=== PATIENT | male | born 2000 | race Caucasian/White ===

== ENCOUNTER 2023-11-26 15:58 | Emergency (ER) | payer MEDICAID, SELFPAY ==
[2023-11-26 16:01] VITALS: BP 159/76; PULSE 76; TEMP 36.6; O2SAT 99; BMI 29.0
--- NOTE | 2023-11-26 16:25 | ED_ITS ---
HPI - Dental/Oral General Chief complaint: Dental/Oral Stated complaint: toothache Time Seen by Provider: 11/26/23 16:18 Source: patient Mode of arrival: walk-in Limitations: no limitations History of Present Illness HPI Narrative: The patient is coming to the ER with 3 to 4 days history of dental pain, he does have a history of multiple dental problems and he was supposed to get extraction but he mentioned that his grandfather recently and he could not go to the dentist yet, the patient denies any other complaints Related Data Previous Rx's ?Medication ?Instructions ?Recorded amoxicillin 875 mg-potassium 1 tab PO Q12H #14 tabs 11/26/23 clavulanate 125 mg tablet ibuprofen 600 mg tablet 600 mg PO TID PRN pain #20 tabs 11/26/23 Allergies Allergy/AdvReac Type Severity Reaction Status Date / Time No Known Drug Allergies Allergy Verified 11/26/23 16:05 Review of Systems ROS Status of ROS 10 or more systems reviewed and unremark able except as noted in history and below Exam Narrative Exam Narrative: Nurses notes and vital signs reviewed and patient is not hypoxic. Dental evaluation showed that the patient have multiple decayed teeth with the left upper tooth #12 is totally decayed with the gum inflamed. Multiple dental caries noted on examination with a bad dental hygiene General: Well-appearing and in no apparent distress. Skin: Warm, dry, no pallor noted. No rash. Head: Normocephalic, atraumatic. Neck: Supple, non-tender. Eye: Pupils are equal, round and EOMI. No scleral icterus. Ears, Nose, Mouth, and Throat: TM are clear, no nasal mucosal hypertrophy. Oral mucosa is moist, no posterior oropharynx erythema, uvula is mid-line Cardiovascular: Regular Rate and Rhythm without murmur, gallop or rub. Respiratory: No accessory muscle use or respiratory distress. Lungs are clear to auscultation, no wheezing, rales or rhonchi Chest Wall: no tenderness Back: No midline thoracic or lumbar vertebral tenderness. No CVA tenderness Musculoskeletal: normal ROM, no calf or popliteal tenderness, no lower extremity edema/swelling GI: Abdomen is soft, non-distended. Normal bowel sounds. No masses appreciated. No tenderness to palpation. No rebound, guarding, or rigidity noted. Neurological: A&O x4. No cranial nerve dysfunction observed. No truncal ataxia. Moves all extremities. Sensation intact. Psychiatric: Cooperative and interactive. Normal mood and affect. Constitutional Vital Signs, click to edit/add: Last Vital Signs Temp 97.9 F 11/26/23 16:01 Pulse 76 11/26/23 16:01 Resp 20 11/26/23 16:01 BP 159/76 H 11/26/23 16:01 Pulse Ox 99 11/26/23 16:01 O2 Del Method Room Air 11/26/23 16:01 Course Vital Signs Vital signs: Vital Signs Temperature 97.9 F 11/26/23 16:01 Pulse Rate 76 11/26/23 16:01 Respiratory Rate 20 11/26/23 16:01 Blood Pressure 159/76 H 11/26/23 16:01 Pulse Oximetry 99 11/26/23 16:01 Oxygen Delivery Method Room Air 11/26/23 16:01 Temperature 97.9 F 11/26/23 16:01 Pulse Rate 76 11/26/23 16:01 Respiratory Rate 20 11/26/23 16:01 Blood Pressure 159/76 H 11/26/23 16:01 Pulse Oximetry 99 11/26/23 16:01 Oxygen Delivery Method Room Air 11/26/23 16:01 MDM - Dental/Oral MDM Narrative Medical decision making narrative: The patient was referred to the dentist as outpatient He was started on Augmentin ibuprofen for pain management and antibiotic for infection control The patient is to follow up with primary care physician in next 2-3 days or to return to the emergency department should any of the signs or symptoms worsen or new symptoms develop. The patient agrees with the following Diagnosis and Treatment plan and the patient will be discharged home. Discharge Plan Discharge Stand Alone Forms: Portal Instructions Chief Complaint: Dental/Oral Clinical Impression: Dental caries, Toothache Patient Disposition: Home, Self-Care Time of Disposition Decision: 16:24 Condition: Good Prescriptions / Home Meds: New amoxicillin-pot clavulanate 875-125 mg tablet 1 tab PO Q12H Qty: 14 0RF ibuprofen 600 mg tablet 600 mg PO TID PRN (Reason: pain) Qty: 20 0RF Print Language: Vietnamese Instructions: Toothache (ED) Referrals: Physician,Non-Staff, MD [Primary Care Provider] - 1 week
[2023-11-26] MEDS: BENZOCAINE 30 ML, lidocaine HCL 15 ML MM (16:39)
== END 2023-11-26 16:42 | disposition home or self-care (01) ==
PROVIDERS: Emergency Provider Emergency Medicine
DX: K02.9 Dental caries, unspecified (principal); K08.89 Other specified disorders of teeth and supporting structures
CPT/HCPCS: 99283

== ENCOUNTER 2024-08-06 21:07 | Emergency (ER) | payer SELFPAY ==
[2024-08-06 21:10] VITALS: BP 151/99; PULSE 116; TEMP 38.1; O2SAT 97; BMI 29.0
[2024-08-06 21:33] LABS: Influenza Virus A Antigen Negative; Influenza Virus B Antigen Negative; Internal Control Within Normal Limits; SARS-CoV-2 Ag NEGATIVE (NEGATIVE)
--- NOTE | 2024-08-06 22:18 | PC.NURSE ---
Pt complains of fever, cough, sore throat and and a headache that started yesterday. pt states that headache is in the back of her head. Pt states he has a productive cough but unsure the color of the phlegm. Lung sounds are clear but dim. pt states that he did take Tylenol for his temp about 2000
--- NOTE | 2024-08-06 22:19 | XR_ITS ---
The [address] [address] Patient Name: POLINA HAGAN MRN: [id number] date: 2000 Sex: M Assigned Patient Location: ER Current Patient Location: ER Accession/Order Number: [id number] Exam Date: 08/06/2024 22:30 Report Date: 08/06/2024 23:18 At the request of: ANTOINE DEJESUS Procedure: XR chest 1V EXAM: XR chest 1V HISTORY: Fever, cough COMPARISON: Chest radiograph 01/15/2021 TECHNIQUE: Frontal radiograph of the chest FINDINGS: Lungs symmetrically and adequately inflated. No focal consolidation or evidence of pulmonary edema. No pneumothorax or significant pleural effusion. Normal cardiomediastinal contours. No acute osseous abnormality. XR/XR chest 1V IMPRESSION: No acute cardiopulmonary findings. Electronically authenticated by: ELEAZAR LINN Date: 08/06/2024 23:18
--- NOTE | 2024-08-06 22:19 | ED_ITS ---
HPI HPI - General Adult General Stated complaint: FEVER COUGH Time Seen by Provider: 08/06/24 22:19 Source: patient Mode of arrival: walk-in History of Present Illness HPI narrative: 24-year-old male presents to the emergency department for fever and a cough which began yesterday. He has been coughing up some phlegm but he swallows it and does not look at it. He had Tylenol about 2-1/2 hours ago. He vapes but does not smoke and has no history of asthma. Related Data Allergies Allergy/AdvReac Type Severity Reaction Status Date / Time No Known Drug Allergies Allergy Verified 08/06/24 21:12 Opioid HPI Opioid Management Most Recent Opioid Data: No Data to Display Review of Systems ROS Narrative A ten point review of systems is negative except as noted above. PFSH PFSH Social History Little interest or pleasure in doing things: not at all Feeling down, depressed, or hopeless: not at all Exam Narrative Exam Narrative: Nurses note and vital signs reviewed and patient is not hypoxic. General: The patient appears well and in no apparent distress. Patient is resting comfortably on cart. He is speaking in full sentences. Skin: Warm, dry, no pallor noted. There is no rash noted. Head: Normocephalic, atraumatic Eye: Normal conjunctiva, no drainage Ears, Nose, Mouth, and Throat: oral mucosa is moist. Nares patent. Cardiovascular: Regular Rate and Rhythm not tachycardic Respiratory: Patient is in no distress, no accessory muscle use, lungs are clear to auscultation, no wheezing, rales or rhonchi Back: non-tender GI: Soft and nontender Musculoskeletal: The patient has no evidence of calf tenderness, no pitting edema, symmetrical pulses noted bilaterally Neurological: A&O, normal speech Psychiatric: Cooperative Constitutional Vital Signs, click to edit/add: Last Vital Signs Temp 100.5 F H 08/06/24 21:10 Pulse 116 H 08/06/24 21:10 Resp 18 08/06/24 21:10 BP 151/99 H 08/06/24 21:10 Pulse Ox 97 08/06/24 21:10 O2 Del Method Room Air 08/06/24 21:10 Course Vital Signs Vital signs: Vital Signs Temperature 100.5 F H 08/06/24 21:10 Pulse Rate 116 H 08/06/24 21:10 Respiratory Rate 18 08/06/24 21:10 Blood Pressure 151/99 H 08/06/24 21:10 Pulse Oximetry 97 08/06/24 21:10 Oxygen Delivery Method Room Air 08/06/24 21:10 Temperature 100.5 F H 08/06/24 21:10 Pulse Rate 116 H 08/06/24 21:10 Respiratory Rate 18 08/06/24 21:10 Blood Pressure 151/99 H 08/06/24 21:10 Pulse Oximetry 97 08/06/24 21:10 Oxygen Delivery Method Room Air 08/06/24 21:10 Medical Decision Making MDM Narrative Medical decision making narrative: COVID and influenza test are negative and chest x-ray shows no infiltrate. My clinical impression is that he has a viral URI. Treatment diagnosis and follow- up were discussed with the patient. Antibiotic not indicated Lab Data Lab results reviewed: Yes I reviewed the patient's lab results Labs: Lab Results 08/06/24 Range/Units 21:11 Influenza Type A Ag Negative Influenza Type B Ag Negative SARS-CoV-2 Ag (CV2AG) Negative (NEGATIVE) Imaging Data Chest x-ray: Radiologist's impression: ITS Impressions Chest X-Ray 08/06/24 22:19 IMPRESSION: No acute cardiopulmonary findings. Electronically authenticated by: ELEAZAR LINN Date: 08/06/2024 23:18 Discharge Plan Discharge Clinical Impression: Viral URI Patient Disposition: Home, Self-Care Time of Disposition Decision: 23:24 Condition: Good Mode of Transportation: Private Vehicle Print Language: Tongan Instructions: Upper Respiratory Infection (ED) Referrals: Physician,Non-Staff, MD [Primary Care Provider] - 1 week
[2024-08-06] MEDS: IBUPROFEN 400 MG TABLET 800 MG PO (22:41)
[2024-08-06 23:33] VITALS: BP 126/90; PULSE 79; TEMP 37.1; O2SAT 98
== END 2024-08-06 23:35 | disposition home or self-care (01) ==
PROVIDERS: Emergency Provider Emergency Medicine
DX: J06.9 Acute upper respiratory infection, unspecified (principal); R50.9 Fever, unspecified; F17.290 Nicotine dependence, other tobacco product, uncomplicated
CPT/HCPCS: 71045; 87804; 87811; 99285

== ENCOUNTER 2024-08-08 02:09 | Emergency (ER) | payer SELFPAY ==
[2024-08-08 02:12] VITALS: BP 159/88; PULSE 87; TEMP 37.7; O2SAT 99; BMI 29.0
--- NOTE | 2024-08-08 02:15 | PC.NURSE ---
Pt states that he was here last night, and is frustrated that his fever continues. He is taking tylenol at home.
--- OUTSIDE RECORDS SUMMARY | 2024-08-08 02:17 | XMS_ITS | CCD ---
Author Organization [facility] Care Team Providers Care Outside Plant Cable Engineer Name Role Phone ELIZABETH JAUREGUI Unavailable Unavailable ERI BARTON Unavailable Unavailable ERI BARTON Unavailable Unavailable ERI BARTON Unavailable Unavailable ELIZABETH JAUREGUI Primary Care Physician [phone] TAMMY Beth Attending UnavailELIZABETH Rodriguez Consulting Unavailable ELIZABETH JAUREGUI Primary Care Unavailable ELIZABETH JAUREGUI Consulting Unavailable ELIZABETH JAUREGUI Primary Care Unavailable Robbie Shultz Attending Unavailable Joana Mendes Unavailable MARY Gomez Attending Provider Brigette Vizcaino Unavailable Jakob Velasquez Attending Unavailable Jakob Velasquez Attending Unavailable JULIUS Vizcaino Attending Provider [phone] Brigette Vizcaino Admitting Unavailable Brigette Vizcaino Attending Unavailable Tejal Gomez Attending Unavailable NO FAMILY, PHYSICIAN Primary Care Unavailable Tejal Gomez Admitting Unavailable Allergies Allergy Classification Reported Allergen(s) Allergy Type Date of Onset Reaction(s) Facility (1 source) No Known Medication Allergies; Translations: [No Known Medication Allergies] Propensity to adverse reactions (disorder) [facility] Repository Medications Current Medications Medication Drug Class(es) Dates Sig (Normalized) Sig (Original) [id number] 200 actuat albuterol 0.09 mg/actuat metered dose inhaler (1 source) beta2-Adrenergic Agonist Start: 3 take 2 puff(s) by inhalation every four to six hours as needed Albuterol Sulfate HFA 108 (90 Base) MCG/ACT 2 puffs as needed Inhalation every 4-6 hours for 14 days December, Active cephalexin 500 mg oral capsule (1 source) Cephalosporin Antibacterial Start: 2 End: 2 take 1 capsule by mouth every twelve hours Keflex 500 mg Cap 500 mg = 1 cap(s), Oral, q12hr, X 5 day(s), # 10 cap(s), Refills(s) 0, Pharmacy: [facility]/pharmacy #[id number], 185.3, cm, 11/12/21 15:39:00 EDT, Height/Length Dosing, 119.6, kg, 11/12/21 15:39:00 EDT, Weight Dosing Start Date: 11/19/21 Stop Date: 11/24/21 Status: Ordered dextromethorphan hydrobromide 1.5 mg/ml / pyrilamine maleate 1.5 mg/ml oral solution (1 source) Uncompetitive C-iqvyhx-K-asparta te Receptor Antagonist, Sigma-1 Agonist Start: 3 take 10 mL by mouth every eight hours [place] DM 7.5-7.5 MG/5ML 10 mL Orally every 8 hours for 5 days December, Active hyoscyamine sulfate 0.125 mg oral tablet (2 sources) Start: 2 take 1 tablet by mouth four times daily as needed for muscle spasms Levsin 0.125 mg SL Tab 0.125 mg = 1 tab(s), Oral, QID, PRN spasm, # 20 tab(s), Refills(s) 0, Pharmacy: [facility]/pharmacy #[id number], 185.3, cm, 11/12/21 15:39:00 EDT, Height/Length Dosing, 119.6, kg, 11/12/21 15:39:00 EDT, Weight Dosing Start Date: 11/19/21 Status: Ordered methylPREDNISolone 4 mg oral tablet (1 source) Corticosteroid Start: 3 methylPREDNISolone 4 MG as directed Orally for daily dose take half with breakfast, half with dinner for 6 days December, Active Problems Active Problems Problem Classification Problem Date Documented Date Episodic/Chronic Abdominal pain (2 sources) Flank pain 09-29-2021 Episodic Chronic obstructive pulmonary disease and bronchiectasis (2 sources) Bronchitis, not specified as acute or chronic; Translations: [BRONCHITIS NOT SPEC ACUTE/CHRON] Onset: 04-14-2018 Episodic Genitourinary symptoms and ill-defined conditions (4 sources) Post-micturition incontinence ; Translations: [Urge incontinence of urine] 09-29-2021 Chronic Genitourinary symptoms and ill-defined conditions (7 sources) Delay when starting to pass urine; Translations: [Dysuria] Onset: 08-19-2023 09-29-2021 Episodic Other diseases of bladder and urethra (2 sources) Urethral stricture 10-26-2021 Episodic Other lower respiratory disease (3 sources) Cough; Translations: [COUGH] Onset: 04-12-2018 Episodic Substance-related disorders (2 sources) Smoker 11-12-2021 Chronic Comment on above: Added secondary to d ocumentation in Social History. Unclassified (1 source) Pain in right ankle and joints of right foot; Translations: [Pain in right ankle and joints of right foot] Onset: 02-24-2023 Past or Other Problems Problem Classification Problem Date Documented Da te Episodic/Chronic Unclassified (1 source) Exposure to 2019 novel coronavirus; Translations: [Contact with and (suspected) exposure to COVID19] Results Test Name Value Interpretation Reference Range Facility Consultation Noteon 08-22-19 24 Consultation Note [id number] [facility] Chlamydia/GC/Trich NAAon Chlamydia Trachomotis, LUCERO Negative Normal Negative [facility] Comment on above: Order Comment: Reaso n for Exam Dysuria SOURCE OF SPECIMEN: URINE APTIMA Performed By: #### G CCHLAMTRI #### [facility] , Neisseria Gonorrhoeae, LUCERO Negative Normal Negative [facility] Comment on above: Order Comment: Reaso n for Exam Dysuria SOURCE OF SPECIMEN: URINE APTIMA Performed By: #### G CCHLAMTRI #### [facility] , Trichomonas LUCERO Negative Normal Negative [facility] Comment on above: Order Comment: Reaso n for Exam Dysuria SOURCE OF SPECIMEN: URINE APTIMA Result Comment: Perf ormed at: =G - [facility] [address] [place] [id number] Clerical Dentist Assistant: Karina Bradford MD, Phone: [phone] PERFORMED BY: [facility] [address] [place] [id number] PATHOLOGIST SENIOR FINANCE MANAGER KYRA FERRARO M.D. Performed By: #### G CCHLAMTRI #### [facility] , Chlamydia/GC/Tric h LUCERO Negative Negative [employer] Other Urinalysis - AUTOMATEDon Appearance (U) clear [employer] Other Bilirubin Ql (U) Negative [facility] Other Color (U) dark yellow [employer] Other Glucose Ql (U) Negative [employer] Other Hemoglobin Ql (U) trace-intact [employer] Other Ketones Ql (U) Negative [employer] Other Leukocyte esterase Test strip Ql (U) Negative [employer] Other Nitrite Ql (U) Negative [employer] Other pH (U) 5.5 [pH] [employer] Other Protein Ql (U) Negative [employer] Other Specific gravity (U) [Rel density] >=1.030 [employer] Other Urobilinogen (U) [Mass/Vol] 0.2 mg/dL [employer] Other Urinalysis - AUTOMATED [employer] Other Ambulatory Visit Summaryon 0 05-04-2023 Ambulatory Visit Summary POLINA HAGAN :2000 Visit Date:05/04/2023 Ambulatory Visit Instructions Your Diagnosis Acute URI Vaping-related disorder BMI 31.0-31.9,adult Class 1 obesity due to excess calories in adult Your Care Team Attending Physician - Jakob Velasquez MD Primary Care Physician - ELIZABETH JAUREGUI MD This Is Your Medications List hyoscyamine (Levsin 0.125 mg SL Tab) Procedures Performed Cystoscopy (11/19/2021), Urethrotomy (11/19/2021), Cystourethroscopy with dilation of urethral stricture (10/26/2021). Discharge Vitals Temperature (Temporal Artery) 37.3 ?C Heart Rate (Peripheral) 80 Respiratory Rate 14 Blood Pressure 160/94 Height 185.3 cm Height 73 in Weight 108.6 kg Weight 238.92 lb BMI 31.63 What to do next Scheduled Follow-Up Appointments Tuesday 4:40 PM EST With: Jakob Velasquez MD Where: [facility] Medicine Office/Clini c Noteon 05-04-2023 Family Medicine Office/Clinic Note HPI Staff Polina is a 22 year old male presenting for sick visit Acute: cough and congestion _Respiratory C/O: Duration: 4 days Body aches: no Chest congestion: yes Chills: no Cough: yes colored phlegm sometimes Ear complaints: no Eye itching/watering: no Fever: no Headache: yes yesterday but it's gone Nasal congestion: yes Nasal discharge: yes colored sometimes Poor appetite: no Reduced activity: no Sinus pain/pressure: no Sneezing: no Sputum production: yes Wheezing: no Ill contacts: no Remedies tried: tylenol _ _ flu: refused questions/concerns: none History of Present Illness See staff HPI Review of Systems PHQ Score Initial Depression Screen Score: 0 Physical Exam Vitals & Measurements T: 37.3 ?C(Temporal Artery) HR: 80(Peripheral) RR: 14 BP: 160/94 SpO2: 100% HT: 73 in HT: 185.3 cm WT: 108.6 kg WT: 238.92 lb BMI: 31.63 General: alert, no acute distress ENMT: oral mucosa moist, Cardiovascular: regular rate and rhythm, normal peripheral perfusion Respiratory: Lungs CTA, respirations non labored Extremities: no deformity, no trauma Neurological: oriented x 4, LOC appropriate for age, CN II-XII intact, motor strength equal & normal bilaterally, speech normal Abdomen: Soft, Nontender, Non-distended, + BS Assessment/Plan 1. Acute URI (J06.9: Acute upper respiratory infection, unspecified) - Recommend OTC meds - Pocket script given - Precautions discussed in detail. When to return discussed along with when to go to the ER. Pt verbalized understanding. 2. Vaping-related disorder (U07.0: Vaping-related disorder) - Please stop Vaping Ordered: Body Mass Index (BMI) documented 3008F Current tobacco smoker 1034F Depression Screening Negative 3352F Influenza immunization status assessed 1030F Most recent diastolic blood pressure >=90 mm Hg 3080F Most recent systolic blood pressure >= 140 mm Hg 3077F 3. BMI 31.0-31.9,adult (Z68.31: Body mass index [BMI] 31.0-31.9, adult) - BMI education given Ordered: Body Mass Index (BMI) documented 3008F Current tobacco smoker 1034F Depression Screening Negative 3352F Influenza immunization status assessed 1030F Most recent diastolic blood pressure >=90 mm Hg 3080F Most recent systolic blood pressure >= 140 mm Hg 3077F 4. Class 1 obesity due to excess calories in adult (E66.09: Other obesity due to excess calories) - As above. Ordered: Body Mass Index (BMI) documented 3008F Current tobacco smoker 1034F Depression Screening Negative 3352F Influenza immunization status assessed 1030F Most recent diastolic blood pressure >=90 mm Hg 3080F Most recent systolic blood pressure >= 140 mm Hg 3077F Follow-up No qualifying data available Problem List/Past Medical History Ongoing Acute URI Dysuria Flank pain Post-void dribbling Smoker Urethral stricture Urge incontinence Urinary hesitancy Historical No qualifying data Procedure/Surgical History Cystoscopy (11/19/2021), Urethrotomy (11/19/2021), Cystourethroscopy with dilation of urethral stricture (10/26/2021). Medications Levsin 0.125 mg SL Tab, 0.125 mg= 1 tab(s), Oral, QID, PRN Allergies No Known Medication Allergies Social History Alcohol - Low Risk, 11/12/2021 Current, 1-2 times per year, 11/12/2021 Substance Abuse - Medium Risk, 11/12/2021 Current, Marijuana, Daily, 11/12/2021 Tobacco - Medium Risk, 11/12/2021 Current vaping or e-cigarette use Smokeless Tobacco Use:. Vaping, 05/04/2023 Family History Family history is negative Immunizations Vaccine Date Status meningococcal conjugate vaccine 05/02/2018 Recorded diphtheria/pertussis, acel/tetanus adult 04/03/2013 Recorded meningococcal conjugate vaccine 04/03/2013 Recorded poliovirus vaccine, inactivated 01/28/2006 Recorded measles/mumps/rubella virus vaccine 01/28/2006 Recorded diphtheria/pertussis, acel/tetanus ped 01/28/2006 Recorded poliovirus vaccine, inactivated 11/09/2001 Recorded measles/mumps/rubella virus vaccine 11/09/2001 Recorded DTaP, unspecified formulation 11/09/2001 Recorded poliovirus vaccine, inactivated 01/24/2001 Recorded pneumococcal 23-valent vaccine 01/24/2001 Recorded DTaP, unspecified formulation 01/24/2001 Recorded poliovirus vaccine, inactivated 2000 Recorded hepatitis B pediatric vaccine 2000 Recorded DTaP, unspecified formulation 2000 Recorded hepatitis B pediatric vaccine [address] [facility] Comment on above: Result Comment: Elec tronically Signed By: Ron BRAY, Jakob Feliz\.br\Date and Time Signed: 05/04/23 17:14 EDT XR ankle RT min 3V*on 2022 XR ankle RT min 3V* [facility] [place] [address] [place] [address] XRay Report Signed Patient: Polina Hagan MR#: [id number] 4 : 2000 Acct:[id number] Age/Sex: 22 / M ADM Date: 02/24/23 Loc: XDUCLY Room: Type: [facility] Attending Dr: Tejal Gomez APRN Copies to: Tejal Gomez APRN Ordering Provider: Tejal Gomez APRN Date of Service: 02/24/23 XR/XR ankle RT min 3V*: Acute right ankle pain XR ankle RT min 3V* 02/24/2023 4:58 PM SIGNS AND SYMPTOMS: Acute right ankle pain PROTOCOL: Frontal, lateral, and oblique radiographs of the right ankle COMPARISON: 01/21/2020 FINDINGS: There is soft tissue swelling over the lateral malleolus. There is no evidence of acute displaced fracture. The ankle mortise is preserved. XR/XR ankle RT min 3V* IMPRESSION: No acute bony injury. Soft tissue swelling is noted over the lateral malleolus. Impression dictated by: Isaiah Craft M.D.02/24/2023 5:11 PM Dictation Location: [place] [address] Transcribed By: [facility] 02/24/23 171 Dictated By: Isaiah Craft II, MD 02/24/23 1709 Signed By: 02/24/23 171 [facility] .UA Microscp Aon 01-14-2022 UA Mucus Present Abnormal Absent [facility] Comment on above: Performed By: #### C [id number] ####[address] [address] UA RBC Quant 27 /HPF High 0-5 [facility] Comment on above: Performed By: #### C [id number] ####[address] [address] UA WBC Quant 2 /HPF Normal 0-5 [facility] Comment on above: Performed By: #### C [id number] ####[address] [address] .eGFRon 01-14-2022 GFR/1.73 sq M.predicted MDRD (S/P/Bld) [Vol rate/Area] mL/min/{1.73_m2} Normal >=60 [facility] Comment on above: Result Comment: [facility] Laboratories have implemented the eGFR calculation approach that does not have a coefficient for race and that conforms to the NKF-ASN Task Force Recommendations. Stages of Chronic Kidney Disease GFR Stage 3a Mild to moderate loss of kidney function 59 to 45 Stage 3b Moderate to severe loss of kidney function 44 to 33 Stage 4 Severe loss of kidney function 29 to 15 Stage 5 Kidney failure Less than 15 GFR calculated using the CKD-Epi Creatinine Equation (2020): eGFR = 142 X min(SCr/?, 1)? X max(SCr /?, 1)-1.200 X 0.9938Age X 1.012 [if female] Abbreviations/Units: eGFR (estimated glomerular filtration rate) = mL/min/1.73 m2 SCr (standardized serum creatinine) = mg/dL ? = 0.7 (females) or 0.9 (males) ? = -0.241 (females) or -0.302 (males) min = indicates the minimum of SCr/? or 1 max = indicates the maximum of SCr/? or 1 Age = years Performed By: #### E GFR ####[address] [address] Basic Metabolic Profileon Anion gap [Moles/Vol] 15 mmol/L Normal 7-17 [facility] Comment on above: Performed By: #### C [id number] ####[address] [address] Calcium [Mass/Vol] 9.3 mg/dL Normal 8.5-10.3 [facility] Comment on above: Performed By: #### C [id number] ####[address] [address] Chloride [Moles/Vol] 99 mmol/L Normal 98-110 [facility] Comment on above: Performed By: #### C [id number] ####[address] [address] CO2 [Moles/Vol] 26 mmol/L Normal 22-32 [facility] Comment on above: Performed By: #### C [id number] ####[address] [address] Creatinine [Mass/Vol] 1.06 mg/dL Normal 0.61-1.24 [facility] Comment on above: Performed By: #### C [id number] ####[address] [address] Glucose [Mass/Vol] 111 mg/dL High 70-99 [facility] Comment on above: Performed By: #### C [id number] ####[address] [address] Potassium [Moles/Vol] 3.9 mmol/L Normal 3.4-4.8 [facility] Comment on above: Performed By: #### C [id number] ####[address] [address] Sodium [Moles/Vol] 136 mmol/L Normal 133-142 [facility] Comment on above: Performed By: #### C [id number] ####[address] [address] Urea nitrogen [Mass/Vol] 16 mg/dL Normal 8-26 [facility] Comment on above: Performed By: #### C [id number] ####[address] [address] Urea nitrogen/Creatini ne [Mass ratio] 15.1 mg/mg Normal 10.0-20.0 [facility] Comment on above: Performed By: #### C [id number] ####[address] [address] CBC w/ Diffon 01-14-2022 Erythrocyte distribution width (RBC) [Ratio] 14.7 % Normal 11.6-14.8 [facility] Comment on above: Performed By: #### C BC ####[address] [address] Hematocrit (Bld) [Volume fraction] 46.7 % Normal 41.0-53.[address] [facility] Comment on above: Performed By: #### C BC ####[address] [address] Hemoglobin (Bld) [Mass/Vol] 15.7 g/dL Normal 13.5-17.5 [facility] Comment on above: Performed By: #### C BC ####[address] [address] MCH (RBC) [Entitic mass] 26.2 pg Low 27.0-35.0 [facility] Comment on above: Performed By: #### C BC ####[place] [id number] MCHC 33.5 % Normal 31.0-37.[address] [facility] Comment on above: Performed By: #### C BC ####[place] [id number] MCV (RBC) [Entitic vol] 78.2 fL Low 80.0-100.0 [facility] Comment on above: Performed By: #### C BC ####[place] [address] Platelet 267 x10*3/mcL Normal 150-350 [facility] Comment on above: Performed By: #### C BC ####[place] [id number] Platelet mean volume (Bld) [Entitic vol] 7.1 fL Normal 6.7-10.6 [facility] Comment on above: Performed By: #### C BC ####[place] [address] RBC 5.97 x10*6/mcL High 4.30-5.80 [facility] Comment on above: Performed By: #### C BC ####[place] [id number] WBC 12.3 x10*3/mcL High 4.5-11.0 [facility] Comment on above: Performed By: #### C BC ####[place] [address] CT Abd Pelvis w/o IV Cont St one Prot.on 01-14-2022 CT Abd Pelvis w/o IV Cont Stone Prot. CT abdomen and pelvis without contrast on 01/14/2022 Clinical History: Hematuria Comparison: CT abdomen and pelvis on 12/03/2021 Findings: Evaluation of the lower chest is unremarkable. Grossly unremarkable liver, spleen, pancreas and adrenals. No radiopaque cholelithiasis. No biliary ductal dilatation. Mild left-sided hydronephrosis and hydroureter secondary to a 4 mm stone at the left-sided ureterovesical junction. Grossly unremarkable visualized bowel loops. No free air or free fluid. Normal appendix. Prominent wall of the urinary bladder. Mild arthritic changes of the bilateral sacroiliac joints. Impression: 1. A 4 mm stone at the left-sided ureterovesical junction causing mild left-sided hydronephrosis and hydroureter. 2. Prominent wall of the urinary bladder could be related to underdistention or cystitis. Please correlate clinically. Radiation Dose Estimate: CTDI(mGy):0.420625 / / / kVp:120.606884 / mAs:0.401784 / / / DLP(mGy-cm):4.416684Hw dy Part: Abdomen CTDI(mGy):40.457271 / / / kVp:140.642053 / mAs:155.493216 / / / DLP(mGy-cm):1966.55993 9Body Part: Abdomen Final Dictated by: Shanda Borges MD Dictated DT/TM: 01.14.2022 9:11 am Signed by: Shanda Borges MD Signed (Electronic Signature): 01.14.2022 9:25 am (If Report Is Signed, Electronically Signed in Other Vendor System) Normal [facility] Diff Autoon 01-14-2022 Baso Absolute 0.0 x10*3/mcL Normal 0.0-0.2 [facility] Comment on above: Performed By: #### . Automated Diff ####[address] [address] Basophils/100 WBC (Bld) 0.3 % Normal 0.0-1.2 [facility] Comment on above: Performed By: #### . Automated Diff ####[address] [address] Eos Absolute 0.0 x10*3/mcL Normal 0.0-0.4 [facility] Comment on above: Performed By: #### . Automated Diff ####[address] [address] Eosinophils/100 WBC (Bld) 0.3 % Normal 0.0-6.1 [facility] Comment on above: Performed By: #### . Automated Diff ####[address] [address] Lymph Absolute 1.4 x10*3/mcL Normal 1.0-4.8 [facility] Comment on above: Performed By: #### . Automated Diff ####[address] [address] Lymphocytes/100 WBC (Bld) 11.5 % Low 27.2-40.8 [facility] Comment on above: Performed By: #### . Automated Diff ####[address] [address] Ashe Absolute 0.8 x10*3/mcL Normal 0.3-1.1 [facility] Comment on above: Performed By: #### . Automated Diff ####[address] [address] Monocytes/100 WBC (Bld) 6.4 % Normal 4.7-13.9 [facility] Comment on above: Performed By: #### . Automated Diff ####[address] [address] Neutro Absolute 10.0 x10*3/mcL High 1.8-7.7 [facility] Comment on above: Performed By: #### . Automated Diff ####[address] [address] Neutro Auto 81.5 % High 47.2-70.[address] [facility] Comment on above: Performed By: #### . Automated Diff ####[address] [address] ED Clinical Summaryon 2021 ED Clinical Summary [address] [id number] ED Clinical Summary Person Information Name: Polina Hagan Janine/[facility] Age: 21 Years : 2000 Sex: Male PCP: Elizabeth Jauregui MD Marital Status: Single Phone: Race: White Ethnicity: Not or Language: Danish Visit Reason: Flank pain; Flank pain Acuity: 3 Enc Type: Emergency Med Service: Emergency Medicine Arrival: 01/14/2022 08:25:15 Discharge: 01/14/2022 10:26:00 LOS: 000 02:01 Checkin: 01/14/2022 08:25:15 Checkout: 01/14/2022 10:26:00 Dispo Type: Home or Self Care Address: [address] [place] [id number] Provider Notes: Diagnosis: 1:Ureterolithiasis - Left Problems Active No Chronic Problems Smoking Status: Smoking Status Former smoker, quit more than 1 year ago Functional Status: Sensory Deficits: History of Falls: Mobility Assistance Prior to Admission: ADLs: Current Level of Assistance for Self-Care/Mobility: Cognitive Status: Allergies No Known Allergies Laboratory or Other Results This Visit (last charted value for your 01/14/2022 visit) Hematology 01/14/2022 8:34 AM WBC: 12.3 x10 RBC: 5.97 x10 Neutro Auto: 81.5 % -- Normal range between ( 47.2 and 70.8 ) Lymph Auto: 11.5 % -- Normal range between ( 27.2 and 40.8 ) Ashe Auto: 6.4 % -- Normal range between ( 4.7 and 13.9 ) Eos Auto: 0.3 % -- Normal range between ( 0.0 and 6.1 ) Basophil Auto: 0.3 % -- Normal range between ( 0.0 and 1.2 ) Baso Absolute: 0.0 x10 MCV: 78.2 fL -- Normal range between ( 80.0 and 100.0 ) MCHC: 33.5 % -- Normal range between ( 31.0 and 37.0 ) Lymph Absolute: 1.4 x10 Hct: 46.7 % -- Normal range between ( 41.0 and 53.0 ) Ashe Absolute: 0.8 x10 MCH: 26.2 pg -- Normal range between ( 27.0 and 35.0 ) Neutro Absolute: 10.0 x10 Hgb: 15.7 g/dL -- Normal range between ( 13.5 and 17.5 ) Mean Platelet Volume: 7.1 fL -- Normal range between ( 6.7 and 10.6 ) Platelet: 267 x10 Eos Absolute: 0.0 x10 RDW: 14.7 % -- Normal range between ( 11.6 and 14.8 ) Urinalysis 01/14/2022 8:40 AM UA Color: Light-Yellow UA Urobilinogen: Normal mg/dL UA Bili: Negative UA Ketones: Negative mg/dL UA Leukocyte Esterase: Negative UA Nitrite: Negative UA Glucose: Normal mg/dL UA Protein: 20 mg/dL UA Blood: 2+ UA Spec Grav: 1.020 -- Normal range between ( 1.003 and 1.035 ) UA pH: 5.5 UA Clarity: Clear UA Source: Clean Catch UA Mucus: Present /LPF UA WBC Quant: 2 /HPF -- Normal range between ( 0 and 5 ) UA RBC Quant: 27 /HPF -- Normal range between ( 0 and 5 ) Chemistry 01/14/2022 8:34 AM Creatinine Lvl: 1.06 mg/dL -- Normal range between ( 0.61 and 1.24 ) BUN: 16 mg/dL -- Normal range between ( 8 and 26 ) Glucose Lvl: 111 mg/dL -- Normal range between ( 70 and 99 ) Potassium Lvl: 3.9 mmol/L -- Normal range between ( 3.4 and 4.8 ) Sodium Lvl: 136 mmol/L -- Normal range between ( 133 and 142 ) Lipase Lvl: 27 IU/L -- Normal range between ( 22 and 51 ) Calcium Lvl: 9.3 mg/dL -- Normal range between ( 8.5 and 10.3 ) Chloride: 99 mmol/L -- Normal range between ( 98 and 110 ) CO2: 26 mmol/L -- Normal range between ( 22 and 32 ) Anion Gap: 15 -- Normal range between ( 7 and 17 ) Estimated GFR: >60 mL/min/1.73m? BUN Crea Ratio: 15.1 -- Normal range between ( 10.0 and 20.0 ) Computed Tomography 01/14/2022 9:[address] Abd Pelvis w/o IV Cont Stone Prot.: CT Abd Pelvis w/o IV Cont Stone Prot. Measurements: Height: Weight: 122.4 kg Blood Pressure: /79 mmHg BMI: Procedures No Procedures Documented Immunizations No Immunizations Documented This Visit Final Med List: New Medications [facility]/pharmacy #[id number], [address] [place], [place] [id number], [phone] ciprofloxacin (Cipro 500 mg oral tablet) 1 Tabs Oral (given by mouth) every 12 hours for 7 Days. Refills: 0. Last Dose: ___ ondansetron (Zofran ODT 4 mg oral tablet, disintegrating) 1 Tabs Oral (given by mouth) 3 times a day as needed nausea/vomiting. Refills: 0. Last Dose: ___ Printed Prescriptions hydrocodone-acetaminop hen (Eastman 5 mg-325 mg oral tablet) 1 Tabs Oral (given by mouth) every 6 hours as needed as needed for pain for 3 Days. Refills: 0. Last Dose: ___ Medications that have not changed Other Medications diclofenac (diclofenac sodium 75 mg oral delayed release tablet) 1 Tabs Oral (given by mouth) 2 times a day. Refills: 0. Last Dose: ___ diclofenac topical (diclofenac 1% topical gel) 1 Application Topical (on the skin) 4 times a day as needed pain. Refills: 0. Last Dose: ___ lidocaine topical (lidocaine 5% topical film) 1 Patches Topical (on the skin) every day as needed pain for 10 Days. Refills: 0. Last Dose: ___ tamsulosin (Flomax 0.4 mg oral capsule) 1 Capsules Oral (given by mouth) every day. Refills: 0. L (more content not included)... Normal [facility] ED Note-Physicianon 01-15-20 ED Note-Physician Chief Complaint dx with a kidney stone on the left side x1 month ago, believes he still has the strone, continues to have pain History of Present Illness Patient presents to ED c/o left flank pain radiating to LLQ, nausea and vomiting starting this morning. He denies fever, diarrhea, dysuria, hematuria and difficulty urinating. Symptoms are aggravated/alleviated by nothing. Patient does report similar symptoms around 1 month ago and was diagnosed w/a kidney stone. Patient does not believe he ever passed the stone so and he never followed up w/urology. He has taken a Flomax prior to arrival. Review of Systems General: [Negative for fever, chills, weakness, malaise] Head: [Negative for injury, pain] Eyes: [Negative for injury, redness, pain, discharge] Neck: [Negative for injury, pain, swelling, stiffness] Cardiovascular: [Negative for chest pain, palpitations, edema] Respiratory: [Negative for shortness of breath, cough, wheezing, pleuritic chest pain] Abdomen/GI: [Positive for left flank and left lower quadrant pain, nausea, vomiting. Negative for distention, diarrhea, hematemesis, melena, hematochezia] : [Negative for frequency, dysuria, hematuria, hesitancy] Skin: [Negative for injury, rash, discoloration] All other systems reviewed are negative and normal Physical Exam General: [Alert, awake, afebrile, well hydrated, no apparent distress] Eyes: [PERRL, extraocular movements intact, clear conjunctiva] Head: [Normocephalic, atraumatic] Neck: [Non-tender, supple, no nuchal rigidity, full range of motion] Cardiovascular: [Regular rate and rhythm, no appreciated murmurs, normal S1 and S2, strong radial pulses w/intact distal perfusion] Respiratory: [Lungs clear to auscultation w/out wheezes, rhonchi, or rales, normal excursion, no accessory muscle use, no stridor] Abdomen/GI: [LLQ tender to palpation. Soft all quadrants, non-distended, no palpable masses, no rebound, no guarding. Bowel sounds active in all quadrants] : [No costovertebral angle tenderness] Skin: [Skyline, warm, dry, no injury, no rashes] Neuro: [Alert and oriented x 3, GCS 15, Normal mentation and speech. Moves all extremities w/out motor or sensory deficit, gait is steady] Psych: [Normal mood and affect, thought process is clear and linear] Vitals & Measurements T: 36.7 ?C (Oral) HR: 78 (Peripheral) RR: 16 BP: 148/79 SpO2: 98% HT: 185.4 cm WT: 122.4 kg (Dosing) Additional Vitals No qualifying data available. Medical Decision Making The results of pertinent diagnostic studies and exam findings were discussed. The patient?s provisional diagnosis and plan of care were discussed with the patient and present family. The patient and/or present family expressed understanding of the diagnosis and plan. The nurse was instructed to provide written instructions and appropriate follow-up information. The patient understands their need and responsibility to obtain additional follow-up as instructed. The risks of medications administered and prescribed were discussed with the patient and family present. Reexamination/Reevalua tion Patient is resting comfortably in room, no distress. Assessment/Plan 1. Ureterolithiasis - Left WBC is 12.3, labs are otherwise stable. Vitals are stable. CT shows left UVJ stone. Will d/c home w/Rx for Eastman, Cipro and Zofran and have him follow up w/the urology stone clinic tomorrow for recheck. He was advised to return for any worsening symptoms, inability to tolerate fluids, inability to urinate, fever or other concerns. Ordered: hydrocodone-acetaminop hen, 1 tabs, Oral, q6hr, PRN, X 3 days, # 10 tabs, 0 Refill(s), 01/17/22 10:16:00 EDT Orders: ciprofloxacin, 1 tabs, Oral, q12hr, X 7 days, # 14 tabs, 0 Refill(s), 01/21/22 10:17:00 EDT, Pharmacy: [facility]/pharmacy #[id number] ondansetron, 1 tabs, Oral, TID, PRN, # 12 tabs, 0 Refill(s), Pharmacy: [facility]/pharmacy #[id number] Discharge Patient Discharge Special Instructions Discharge Special Instructions Discharge Special Instructions Discharge Special Instructions Discharge Special Instructions Referral to Urology Refresh vitals and sections below: Problem List/Past Medical History Ongoing No chronic problems Historical No qualifying data Procedure/Surgical History none Medications Inpatient Normal Saline Flush 0.9% injectable solution, 10 mL, IV Push, As Indicated, PRN Home diclofenac 1% topical gel, 1 joshua, Topical, QID, PRN, Not taking diclofenac sodium 75 mg oral delayed release tablet, 75 mg= 1 tabs, Oral, BID, Not taking Flomax 0.4 mg oral capsule, 0.4 mg= 1 caps, Oral, Daily lidocaine 5% topical film, 1 patches, Topical, Daily, PRN, Not taking Allergies No Known Allergies Social History Alcohol Never Substance Abuse Current, Marijuana, Daily Tobacco Former smoker, quit more than 1 year ago Use:. Family History Family history is negative Lab Results Automated Hematology LATEST RESULTS HISTORICAL RESULTS WBC 01/14/22 08:34 12.3 Hi (more content not included)... Normal [facility] Lipaseon 01-14-2022 Lipase Lvl 27 IU/L Normal 22-[address] [facility] Comment on above: Performed By: #### L IP ####[address] [address] UA w Culture if Indon 2021 Color (U) Light-Yellow Normal [facility] Comment on above: Performed By: #### U CI ####[address] [address] Ketones Ql (U) Negative Normal Negative [facility] Comment on above: Performed By: #### U CI ####[address] [address] UA Blood 2+ Abnormal Negative [facility] Comment on above: Performed By: #### U CI ####[address] [address] UA Clarity Clear Normal [facility] Comment on above: Performed By: #### U CI ####[address] [address] UA Glucose Normal Normal Negative [facility] Comment on above: Performed By: #### U CI ####[address] [address] UA Leukocyte Esterase Negative Normal Negative [facility] Comment on above: Performed By: #### U CI ####[address] [address] UA Nitrite Negative Normal Negative [facility] Comment on above: Performed By: #### U CI ####[address] [address] UA pH 5.5 Normal 4.5 - 7.[address] [facility] Comment on above: Performed By: #### U CI ####[address] [address] UA Protein 20 mg/dL Normal Negative [facility] Comment on above: Performed By: #### U CI ####[address] [address] UA Source Clean Catch Normal [facility] Comment on above: Performed By: #### U CI ####[address] [address] UA Spec Grav 1.020 Normal 1.003-1.035 [facility] Comment on above: Performed By: #### U CI ####[address] [address] UA Urobilinogen Normal Normal 0.2 - 1.0 [facility] Comment on above: Performed By: #### U CI ####[address] [address] Urobilinogen (U) [Mass/Vol] Negative Normal Negative [facility] Comment on above: Performed By: #### U CI ####[address] [address] .UA Microscp Aon 12-03-2021 UA Mucus Present Abnormal Absent [facility] Comment on above: Performed By: #### C [id number] ####[address] [address] UA RBC Quant 577 /HPF High 0-5 [facility] Comment on above: Performed By: #### C [id number] ####[address] [address] UA Squepi Cells Quant <1 Normal 0-29 [facility] Comment on above: Performed By: #### C [id number] ####[address] [address] UA WBC Quant 1 /HPF Normal 0-5 [facility] Comment on above: Performed By: #### C [id number] ####[address] [address] .eGFRon 12-03-2021 GFR/1.73 sq M.predicted MDRD (S/P/Bld) [Vol rate/Area] mL/min/{1.73_m2} Normal >=60 [facility] Comment on above: Result Comment: [facility] have implemented the eGFR calculation approach that does not have a coefficient for race and that conforms to the NKF-ASN Task Force Recommendations. Stages of Chronic Kidney Disease GFR Stage 3a Mild to moderate loss of kidney function 59 to 45 Stage 3b Moderate to severe loss of kidney function 44 to 33 Stage 4 Severe loss of kidney function 29 to 15 Stage 5 Kidney failure Less than 15 GFR calculated using the CKD-Epi Creatinine Equation (2020): eGFR = 142 X min(SCr/?, 1)? X max(SCr /?, 1)-1.200 X 0.9938Age X 1.012 [if female] Abbreviations/Units: eGFR (estimated glomerular filtration rate) = mL/min/1.73 m2 SCr (standardized serum creatinine) = mg/dL ? = 0.7 (females) or 0.9 (males) ? = -0.241 (females) or -0.302 (males) min = indicates the minimum of SCr/? or 1 max = indicates the maximum of SCr/? or 1 Age = years Performed By: #### E GFR ####[address] [address] Basic Metabolic Profileon Anion gap [Moles/Vol] 19 mmol/L High 7-17 [facility] Comment on above: Performed By: #### C [id number] ####[address] [address] Calcium [Mass/Vol] 10.1 mg/dL Normal 8.5-10.3 [facility] Comment on above: Performed By: #### C [id number] ####[address] [place] [address] Chloride [Moles/Vol] 97 mmol/L Low 98-110 [facility] Comment on above: Performed By: #### C [id number] ####[address] [address] CO2 [Moles/Vol] 25 mmol/L Normal 22-32 [facility] Comment on above: Performed By: #### C [id number] ####[address] [address] Creatinine [Mass/Vol] 1.39 mg/dL High 0.61-1.24 [facility] Comment on above: Performed By: #### C [id number] ####[address] [address] Glucose [Mass/Vol] 136 mg/dL High 70-99 [facility] Comment on above: Performed By: #### C [id number] ####[address] [address] Potassium [Moles/Vol] 3.6 mmol/L Normal 3.4-4.8 [facility] Comment on above: Performed By: #### C [id number] ####[address] [address] Sodium [Moles/Vol] 137 mmol/L Normal 133-142 [facility] Comment on above: Performed By: #### C [id number] ####[address] [address] Urea nitrogen [Mass/Vol] 20 mg/dL Normal 8-26 [facility] Comment on above: Performed By: #### C [id number] ####[address] [address] Urea nitrogen/Creatini ne [Mass ratio] 14.4 mg/mg Normal 10.0-20.0 [facility] Comment on above: Performed By: #### C [id number] ####[address] [address] CBC w/ Diffon 12-03-2021 Erythrocyte distribution width (RBC) [Ratio] 14.5 % Normal 11.6-14.8 [facility] Comment on above: Performed By: #### C BC ####[address] [address] Hematocrit (Bld) [Volume fraction] 47.6 % Normal 41.0-53.[address] [facility] Comment on above: Performed By: #### C BC ####[address] [address] Hemoglobin (Bld) [Mass/Vol] 15.8 g/dL Normal 13.5-17.5 [facility] Comment on above: Performed By: #### C BC ####[address] [address] MCH (RBC) [Entitic mass] 25.4 pg Low 27.0-35.0 [facility] Comment on above: Performed By: #### C BC ####[address] [address] MCHC 33.2 % Normal 31.0-37.[address] [facility] Comment on above: Performed By: #### C BC ####[address] [address] MCV (RBC) [Entitic vol] 76.6 fL Low 80.0-100.0 [facility] Comment on above: Performed By: #### C BC ####[address] [address] Platelet 309 x10*3/mcL Normal 150-350 [facility] Comment on above: Performed By: #### C BC ####[address] [address] Platelet mean volume (Bld) [Entitic vol] 7.2 fL Normal 6.7-10.6 [facility] Comment on above: Performed By: #### C BC ####[address] [address] RBC 6.21 x10*6/mcL High 4.30-5.80 [facility] Comment on above: Performed By: #### C BC ####[facility] [place] [address] WBC 15.1 x10*3/mcL High 4.5-11.0 [facility] Comment on above: Performed By: #### C BC ####[address] [address] [address] Abdomen Pelvis w/ IV Cont raston 12-03-2021 CT Abdomen Pelvis w/ IV Contrast CT abdomen and pelvis with contrast on 12/03/2021 Patient's history: Abdominal pain Technique: Multiple axial and reconstructed coronal and sagittal images of the abdomen were obtained after the administration of 100 mL of Omnipaque-300 as a contrast agent. Comparison: None Findings: Evaluation of the lower chest is unremarkable. Unremarkable liver, spleen, pancreas and adrenals. Mild left-sided hydronephrosis and proximal hydroureter secondary to a 3 to 4 mm stone in the proximal left ureter. Delayed enhancement of the left kidney compatible with obstructive uropathy. No free air or free fluid. No retroperitoneal or mesenteric lymphadenopathy by size criteria. Mild disc bulge at T11 and adrenals. Impression: Mild left-sided hydronephrosis and proximal hydroureter secondary to 3 to 4 mm proximal left ureteral stone. Delayed enhancement of the left kidney compatible with obstructive uropathy. Radiation Dose Estimate: CTDI(mGy):0.097961 / / / kVp:120.171005 / mAs:0.340446 / / / DLP(mGy-cm):4.866152Ox dy Part: Abdomen CTDI(mGy):30.158492 / / / kVp:140.024041 / mAs:155.707403 / / / DLP(mGy-cm):1611.09925 5Body Part: Abdomen Final Dictated by: Shanda Borges MD Dictated DT/TM: 12.03.2021 3:25 pm Signed by: Shanda Borges MD Signed (Electronic Signature): 12.03.2021 3:38 pm (If Report Is Signed, Electronically Signed in Other Vendor System) Normal [facility] Diff Autoon 12-03-2021 Baso Absolute 0.1 x10*3/mcL Normal 0.0-0.2 [facility] Comment on above: Performed By: #### . Automated Diff ####[address] [address] Basophils/100 WBC (Bld) 0.5 % Normal 0.0-1.2 [facility] Comment on above: Performed By: #### . Automated Diff ####[address] [address] Eos Absolute 0.0 x10*3/mcL Normal 0.0-0.4 [facility] Comment on above: Performed By: #### . Automated Diff ####[address] [address] Eosinophils/100 WBC (Bld) 0.1 % Normal 0.0-6.1 [facility] Comment on above: Performed By: #### . Automated Diff ####[address] [address] Lymph Absolute 1.0 x10*3/mcL Normal 1.0-4.8 [facility] Comment on above: Performed By: #### . Automated Diff ####[address] [address] Lymphocytes/100 WBC (Bld) 6.3 % Low 27.2-40.8 [facility] Comment on above: Performed By: #### . Automated Diff ####[address] [address] Ashe Absolute 0.6 x10*3/mcL Normal 0.3-1.1 [facility] Comment on above: Performed By: #### . Automated Diff ####[address] [address] Monocytes/100 WBC (Bld) 3.9 % Low 4.7-13.9 [facility] Comment on above: Performed By: #### . Automated Diff ####[address] [address] Neutro Absolute 13.5 x10*3/mcL High 1.8-7.7 [facility] Comment on above: Performed By: #### . Automated Diff ####[address] [place] [address] Neutro Auto 89.2 % High 47.2-70.[address] [facility] Comment on above: Performed By: #### . Automated Diff ####[address] [address] ED Clinical Summaryon 2021 ED Clinical Summary [facility] [address] [place] [address] ED Clinical Summary Person Information Name: Polina Hagan Janine/[facility] Age: 21 Years : 2000 Sex: Male PCP: Elizabeth Jauregui MD Marital Status: Single Phone: Race: White Ethnicity: Not or Language: Danish Visit Reason: Abdominal pain; Abdominal pain Acuity: 3 Enc Type: Emergency Med Service: Emergency Medicine Arrival: 12/03/2021 12:39:47 Discharge: 12/03/2021 17:48:00 LOS: 000 05:09 Checkin: 12/03/2021 12:39:47 Checkout: 12/03/2021 17:48:00 Dispo Type: Home or Self Care Address: [address] [address] Provider Notes: History of Present Illness This is a 21-year-old seen today to complaint abdominal pain. ?Patient reports lower abdominal pain started this morning. ?Progressively getting worse. ?Patient denies any fever sweats chills??vomiting or diarrhea.? Nausea however is present.? This time the patient is otherwise alert on approach. ?Patient exam AB due to tach secondary to the fact he feels he has not had a regular bowel movement subtype.? Patient went to?btes-amh-oxvhuzp laxatives with minimal?results and?no relief in pain. ?Patient simply discharged home. Review of Systems 10 pertinent systems reviewed and are negative other than stated above in history present illness. ? Nursing notes and medications reviewed as documented in the medical record.? Remove all nieves Physical Exam CONSTITUTIONAL: [well appearing in no acute distress] SKIN: [Warm, dry, and intact without rash] EYES: [extraocular movements are grossly intact, clear conjunctiva] HENT: [Normocephalic, atraumatic, moist mucus membranes] NECK: [no obvious swelling, normal range of motion] PULMONARY: [normal chest rise and fall, no respiratory distress or stridor CARDIOVASCULAR: [regular rate, distal extremities are warm and well perfused] GASTROINSTESTINAL: [nondistended, non-tender] GENITOURINARY: [deferred] NEUROLOGIC: [normal speech, moves all extremities] MUSCULOSKELETAL: [no gross deformities, atraumatic] PSYCHIATRIC: [normal mood and affect] Diagnosis: 1:Ureterolithiasis; 2:Ureteral colic Problems Active No Chronic Problems Smoking Status: Smoking Status Former smoker, quit more than 1 year ago Functional Status: Sensory Deficits: History of Falls: Mobility Assistance Prior to Admission: ADLs: Current Level of Assistance for Self-Care/Mobility: Cognitive Status: Allergies No Known Allergies Laboratory or Other Results This Visit (last charted value for your 12/03/2021 visit) Hematology 12/03/2021 12:53 PM WBC: 15.1 x10 RBC: 6.21 x10 Neutro Auto: 89.2 % -- Normal range between ( 47.2 and 70.8 ) Lymph Auto: 6.3 % -- Normal range between ( 27.2 and 40.8 ) Ashe Auto: 3.9 % -- Normal range between ( 4.7 and 13.9 ) Eos Auto: 0.1 % -- Normal range between ( 0.0 and 6.1 ) Basophil Auto: 0.5 % -- Normal range between ( 0.0 and 1.2 ) Baso Absolute: 0.1 x10 MCV: 76.6 fL -- Normal range between ( 80.0 and 100.0 ) MCHC: 33.2 % -- Normal range between ( 31.0 and 37.0 ) Lymph Absolute: 1.0 x10 Hct: 47.6 % -- Normal range between ( 41.0 and 53.0 ) Ashe Absolute: 0.6 x10 MCH: 25.4 pg -- Normal range between ( 27.0 and 35.0 ) Neutro Absolute: 13.5 x10 Hgb: 15.8 g/dL -- Normal range between ( 13.5 and 17.5 ) Mean Platelet Volume: 7.2 fL -- Normal range between ( 6.7 and 10.6 ) Platelet: 309 x10 Eos Absolute: 0.0 x10 RDW: 14.5 % -- Normal range between ( 11.6 and 14.8 ) Urinalysis 12/03/2021 3:29 PM UA Color: Yellow UA Urobilinogen: Normal mg/dL UA Bili: Negative UA Ketones: 60 mg/dL UA Leukocyte Esterase: Negative UA Nitrite: Negative UA Glucose: Normal mg/dL UA Protein: 50 mg/dL UA Blood: 3+ UA Spec Grav: 1.015 -- Normal range between ( 1.003 and 1.035 ) UA pH: 6.0 UA Clarity: Clear UA Source: Clean Catch UA Mucus: Present /LPF UA WBC Quant: 1 /HPF -- Normal range between ( 0 and 5 ) UA RBC Quant: 577 /HPF -- Normal range between ( 0 and 5 ) UA Squepi Cells Quant: <1 /HPF -- Normal range between ( 0 and 29 ) Chemistry 12/03/2021 12:53 PM Creatinine Lvl: 1.39 mg/dL -- Normal range between ( 0.61 and 1.24 ) BUN: 20 mg/dL -- Normal range between ( 8 and 26 ) Glucose Lvl: 136 mg/dL -- Normal range between ( 70 and 99 ) Potassium Lvl: 3.6 mmol/L -- Normal range between ( 3.4 and 4.8 ) AST: 36 IU/L -- Normal range between ( 15 and 41 ) ALT: 27 IU/L -- Normal range between ( 17 and 63 ) Sodium Lvl: 137 mmol/L -- Normal range between ( 133 and 142 ) Bili Indirect: 1.2 mg/dL -- Normal range between ( 0.0 and 1.0 ) Calcium Lvl: 10.1 mg/dL -- Normal range between ( 8.5 and 10.3 ) Albumin Lvl: 4.2 g/dL -- Normal range between ( 3.2 and 4.9 ) Total Protein: 8.7 g/dL -- Normal range between ( 6.5 and 8.1 ) Bili Total: 1.3 mg/dL -- Normal range between ( 0.3 and 1. (more content not included)... Normal [facility] ED Note-Nursingon 12-03-2021 ED Note-Nursing d/c after fluids complete. Electronically signed by Wale Moore Jana 12/03/21 16:16 EDT Normal [facility] ED Note-Physicianon 12-04-19 ED Note-Physician Chief Complaint pt reports lower abdominal pain that started this morning History of Present Illness This is a 21-year-old seen today to complaint abdominal pain. Patient reports lower abdominal pain started this morning. Progressively getting worse. Patient denies any fever sweats chills vomiting or diarrhea. Nausea however is present. This time the patient is otherwise alert on approach. Patient exam AB due to tach secondary to the fact he feels he has not had a regular bowel movement subtype. Patient went to hhgx-skr-yhamapl laxatives with minimal results and no relief in pain. Patient simply discharged home. Review of Systems 10 pertinent systems reviewed and are negative other than stated above in history present illness. Nursing notes and medications reviewed as documented in the medical record. Remove all nieves Physical Exam CONSTITUTIONAL: [well appearing in no acute distress] SKIN: [Warm, dry, and intact without rash] EYES: [extraocular movements are grossly intact, clear conjunctiva] HENT: [Normocephalic, atraumatic, moist mucus membranes] NECK: [no obvious swelling, normal range of motion] PULMONARY: [normal chest rise and fall, no respiratory distress or stridor CARDIOVASCULAR: [regular rate, distal extremities are warm and well perfused] GASTROINSTESTINAL: [nondistended, non-tender] GENITOURINARY: [deferred] NEUROLOGIC: [normal speech, moves all extremities] MUSCULOSKELETAL: [no gross deformities, atraumatic] PSYCHIATRIC: [normal mood and affect] Vitals & Measurements T: 36.5 ?C (Oral) HR: 81 (Monitored) RR: 18 BP: 149/108 SpO2: 99% HT: 185.4 cm WT: 117.7 kg (Dosing) Additional Vitals No qualifying data available. Procedure No qualifying data available. ASA Documentation Medical Decision Making Work-up and evaluation at this point was a patient has a kidney stone. To 3 mm proximal ureter. Patient is also got a 15.1 white count. 89% neutrophils. At this time work-up and evaluation is otherwise negative. Patient subsequently set up for discharge home with good return instructions. Assessment/Plan 1. Ureterolithiasis Ordered: ciprofloxacin, 1 tabs, Oral, q12hr, X 10 days, # 20 tabs, 0 Refill(s), 12/13/21 16:02:00 EDT, Pharmacy: [facility]/pharmacy #[id number] hydrocodone-acetaminop hen, 1 tabs, Oral, q6hr, PRN, X 3 days, # 12 tabs, 0 Refill(s), 12/06/21 16:02:00 EDT, Pharmacy: [facility]/pharmacy #[id number] ibuprofen, 1 tabs, Oral, q8hr, X 10 days, # 30 tabs, 0 Refill(s), 12/13/21 16:02:00 EDT, Pharmacy: [facility]/pharmacy #[id number] tamsulosin, 1 caps, Oral, Daily, # 30 caps, 0 Refill(s), Pharmacy: [facility]/pharmacy #[id number] Discharge Patient 2. Ureteral colic Ordered: ciprofloxacin, 1 tabs, Oral, q12hr, X 10 days, # 20 tabs, 0 Refill(s), 12/13/21 16:02:00 EDT, Pharmacy: [facility]/pharmacy #[id number] hydrocodone-acetaminop hen, 1 tabs, Oral, q6hr, PRN, X 3 days, # 12 tabs, 0 Refill(s), 12/06/21 16:02:00 EDT, Pharmacy: [facility]/pharmacy #[id number] ibuprofen, 1 tabs, Oral, q8hr, X 10 days, # 30 tabs, 0 Refill(s), 12/13/21 16:02:00 EDT, Pharmacy: [facility]/pharmacy #[id number] tamsulosin, 1 caps, Oral, Daily, # 30 caps, 0 Refill(s), Pharmacy: [facility]/pharmacy #[id number] Discharge Patient Orders: ketorolac, 15 mg, IV Push, Injection, q6hr, First Dose: 12/03/21 16:00:00 EDT, Dispense From Location: [facility], 12/03/21 16:00:00 EDT ondansetron, 1 tabs, Oral, q8hr, PRN, X 3 days, # 9 tabs, 0 Refill(s), 12/06/21 16:06:00 EDT, Pharmacy: [facility]/pharmacy #[id number] Post Void Residual Refresh vitals and sections below: Problem List/Past Medical History Ongoing No chronic problems Historical No qualifying data Procedure/Surgical History none Medications Inpatient Toradol, 15 mg= 1 mL, IV Push, q6hr Home Cipro 500 mg oral tablet, 500 mg= 1 tabs, Oral, q12hr diclofenac 1% topical gel, 1 joshua, Topical, QID, PRN, Not taking diclofenac sodium 75 mg oral delayed release tablet, 75 mg= 1 tabs, Oral, BID, Not taking Flomax 0.4 mg oral capsule, 0.4 mg= 1 caps, Oral, Daily ibuprofen 600 mg oral tablet, 600 mg= 1 tabs, Oral, q8hr lidocaine 5% topical film, 1 patches, Topical, Daily, PRN, Not taking Eastman 5 mg-325 mg oral tablet, 1 tabs, Oral, q6hr, PRN Zofran ODT 4 mg oral tablet, disintegrating, 4 mg= 1 tabs, Oral, q8hr, PRN Allergies No Known Allergies Social History Alcohol Never Substance Abuse Current, Marijuana, Daily Tobacco Former smoker, quit more than 1 year ago Use:. Family History Family history is negative Lab Results Automated Hematology LATEST RESULTS WBC 12/03/21 12:53 15.1 High RBC 12/03/21 12:53 6.21 High Hgb 12/03/21 12:53 15.8 Hct 12/03/21 12:53 47.6 MCV 12/03/21 12:53 76.6 Low MCH 12/03/21 12:53 25.4 Low MCHC 12/03/21 12:53 33.2 RDW 12/03/21 12:53 14.5 Platelet 12/03/21 12:53 309 Mean Platelet Volume 12/03/21 12:53 7.2 Neutro Auto 12/03/21 12:53 89.2 High Lymph Auto 12/03/21 12:53 6.3 Low Ashe Auto 12/03/21 12:53 3.9 Low Eos Auto 12/03/21 12:53 (more content not included)... Normal [facility] Hep Func Panelon 12-03-2021 Albumin [Mass/Vol] 4.2 g/dL Normal 3.2-4.9 [facility] Comment on above: Performed By: #### L IVER ####[address] [address] Alk Phos 61 IU/L Normal 32-[address] [facility] Comment on above: Performed By: #### L IVER ####[address] [address] ALT [Catalytic activity/Vol] 27 U/L Normal 17-63 [facility] Comment on above: Performed By: #### L IVER ####[address] [address] AST [Catalytic activity/Vol] 36 U/L Normal 15-41 [facility] Comment on above: Performed By: #### L IVER ####[address] [address] Bili Direct 0.1 mg/dL Normal 0.1-0.[address] [facility] Comment on above: Performed By: #### L IVER ####[address] [address] Bili Indirect 1.2 mg/dL High 0.0-1.0 [facility] Comment on above: Performed By: #### L IVER ####[address] [address] Bili Total 1.3 mg/dL High 0.3-1.[address] [facility] Comment on above: Performed By: #### L IVER ####[address] [address] Protein [Mass/Vol] 8.7 g/dL High 6.5-8.1 [facility] Comment on above: Performed By: #### L IVER ####[address] [address] UA w Culture if Indon 2021 Color (U) Yellow Normal [facility] Comment on above: Performed By: #### U CI ####[address] [place] [address] Ketones Ql (U) 60 mg/dL Abnormal Negative [facility] Comment on above: Performed By: #### U CI ####[address] [place] [address] UA Blood 3+ Abnormal Negative [facility] Comment on above: Performed By: #### U CI ####[address] [place] [address] UA Clarity Clear Normal [facility] Comment on above: Performed By: #### U CI ####[address] [place] [address] UA Glucose Normal Normal Negative [facility] Comment on above: Performed By: #### U CI ####[address] [address] UA Leukocyte Esterase Negative Normal Negative [facility] Comment on above: Performed By: #### U CI ####[address] [place] [address] UA Nitrite Negative Normal Negative [facility] Comment on above: Performed By: #### U CI ####[address] [place] [address] UA pH 6.0 Normal 4.5 - 7.[address] [facility] Comment on above: Performed By: #### U CI ####[address] [place] [address] UA Protein 50 mg/dL Abnormal Negative [facility] Comment on above: Performed By: #### U CI ####[address] [place] [address] UA Source Clean Catch Normal [facility] Comment on above: Performed By: #### U CI ####[address] [address] UA Spec Grav 1.015 Normal 1.003-1.035 [facility] Comment on above: Performed By: #### U CI ####[address] [address] UA Urobilinogen Normal Normal 0.2 - 1.0 [facility] Comment on above: Performed By: #### U CI ####[address] [address] Urobilinogen (U) [Mass/Vol] Negative Normal Negative [facility] Comment on above: Performed By: #### U CI ####[address] [address] CoV-2 PCRon 05-21-2021 Employed in healthcare? Unknown Normal [facility] Comment on above: Order Comment: PCR r equired. Performed By: #### C D:[id number] ####[address] [address] Group care resident? No Normal [facility] Comment on above: Order Comment: PCR r equired. Performed By: #### C D:[id number] ####[address] [address] In ICU? No Normal [facility] Comment on above: Order Comment: PCR r equired. Performed By: #### C D:[id number] ####[address] [address] status? Not Applicable Normal [facility] Comment on above: Order Comment: PCR r equired. Performed By: #### C D:[id number] ####[address] [address] SARS-CoV-2 (COVID-19) RNA LUCERO+probe Ql (Unsp spec) Negative Normal Negative [facility] Comment on above: Order Comment: PCR r equired. Result Comment: The TOREY? SARS-CoV-2 Assay is a qualitative, multiplex, real-time PCR-based in vitro diagnostic test intended for the detection of SARS-CoV-2 nucleic acid in nasopharyngeal swab (VENEER JOINTER) specimens from individuals suspected of having COVID-19. The TOREY? SARS-CoV-2 Assay detects SARS-CoV-2 viral RNA from nasopharyngeal swab (VENEER JOINTER) samples. SARS-CoV-2 RNA is generally detectable in VENEER JOINTER specimens during the acute phase of infection. Positive results are indicative of the presence of SARS-CoV-2 RNA; clinical correlation with patient history and other diagnostic information is necessary to determine patient infection status. Positive results do not rule out bacterial infection or co-infection with other viruses. The agent detected may not be the definite cause of disease. Laboratories within the [facility] and its territories are required to report all positive results to the appropriate public health authorities. Negative results do not preclude SARS-CoV-2 infection and should not be used as the sole basis for patient management decisions. Negative results must be combined with clinical observations, patient history, and epidemiological information. The [employer] SARS-CoV-2 Assay is intended for use on [employer] Systems by trained clinical laboratory personnel who are specifically instructed and trained in in vitro diagnostic procedures. This [employer] SARS-CoV-2 Assay has been modified from the turner and former automatic?s instructions to allow for nasal swab (anterior Nares) collection. An independent bridging study for nasal swab collection was performed by [facility], a [facility] laboratory certified to perform high complexity testing EUA - In Vitro Diagnostic Use Under Emergency Use Authorization. This test has not been FDA cleared or approved. This test has been authorized by the FDA under an EUA for use by authorized laboratories. This test has been authorized only for the detection of nucleic acid from SARS-CoV-2, not for any other viruses or pathogens. This test is only authorized for the duration of the declaration that circumstances exist justifying the authorization of emergency use of in vitro diagnostic tests for detection and/or diagnosis of COVID-19 under Section 564(b) (1) of the Act, 21 U.S.C. ?360bb-3(b)(1), unless the authorization is terminated or revoked sooner. Fact sheet for Health Care Providers: https://www.fda.gov/media/682972/download Fact sheet for Patients: https://www.fda.gov/media/721359/download Performed By: #### C D:[id number] ####[place] [address] SARS-CoV-2 (COVID-19) RNA LUCERO+probe Ql (Unsp spec) No Normal [facility] Comment on above: Order Comment: PCR r equired. Performed By: #### C D:[id number] ####[place] [address] SARS-CoV-2 (COVID-19) RNA LUCERO+probe Ql (Unsp spec) Unknown Normal [facility] Comment on above: Order Comment: PCR r equired. Performed By: #### C D:[id number] ####[place] [address] Symptomatic as defined by CDC? No Normal [facility] Comment on above: Order Comment: PCR r equired. Performed By: #### C D:[id number] ####[place] [address] Urgent Care Office/Clinic No sam 05-20-2021 Urgent Care Office/Clinic Note Chief Complaint pt c/o covid exposure at work. pt denies any symptoms. History of Present Illness 20-year-old male presents in office requesting testing for COVID-19 after recent close positive exposure to his brother. He is asymptomatic at this time. He is not vaccinated for COVID-19. His employer is requiring a negative test to return to work. Review of Systems General: No fever, chills, body aches or fatigue. +close positive exposure to Covid-19. Physical Exam Vitals & Measurements T: 36.7 ?C (Oral) HR: 89 (Peripheral) RR: 16 BP: 135/80 SpO2: 97 HT: 185 cm WT: 127 kg WT: 127 kg (Dosing) BMI: 37.11 General: well-developed, in no acute distress. Neuro: Alert and oriented. Gait is steady. Speech is clear and appropriate. Covid-19 PCR collected in office. Results pending. Additional Vitals No qualifying data available. Assessment/Plan 1. Close exposure to COVID-19 virus COVID-19 PCR completed in office. We call you in the next 24-48 hours with your results, whether negative or positive. Please assume you are positive for COVID-19 until proven otherwise and plan to quarantine. *IF your test results POSITIVE, Please stay home and self-quarantine for 10 days from a positive result or first day of symptoms, or until you are contacted by the local health department and released from quarantine. If the health dept. has not reached out to you within 2 days following your positive result, please contact them for further guidance on quarantining. Do NOT go out into the public. Household contacts do not need to quarantine ONLY IF both of the following are true: 1). The individual is fully vaccinated for Covid-19 (second or final dose has been completed and it has been at least 2 weeks since the final dose), AND 2). The individual is asymptomatic. If a household member is vaccinated and develops any concerning symptoms they should be evaluated for Covid-19 infection. The CDC states that vaccinated persons who are exposed to Covid-19 should be tested within 3-5 days after their last exposure, even if they have not developed any symptoms yet. The CDC states that unvaccinated persons with positive exposure should quarantine for 14 days following their last day of known exposure, whether they have any symptoms or not. COVID-19 VACCINE INFORMATION - WHERE TO GET YOUR VACCINE: Now vaccinating ages 12 and older. If you have had Covid-19 infection in the past or currently, you are STILL eligible to get the vaccine just 10 days after your infection. 1. [facility] offers Covid vaccinations. 2. You may go to the website of any of the following grocery store's pharmacies and schedule your vaccine appointment online OR call their pharmacy department to schedule an appointment over the phone: [facility]ia [facility] [place] [employer] Vincenzo Rothman 3. You may also call your local Family Doctor's office and ask about scheduling an appointment for the Covid-19 vaccine. I recommend doing your OWN research through credible resources and/or consulting your Family Doctor or PCP if you have any questions or concerns regarding the vaccine! You may go to the CDC's website for credible, up-to-date information regarding the vaccine. Orders: SARS-CoV-2 RNA by RT-PCR Medical Decision Making Chronic conditions NOT treated during this visit that affected my overall medical decision making: [] Treatment plans discussed but not opted for at this time: [] Prescribed medication that requires intensive monitoring for toxicity: [] I have reviewed the patient?s medication list for medication interactions/contraind ications and/or for upcoming procedures: [yes or no] Time Spent with the Patient I have personally spent [8] minutes on this date, directly related to today's patient visit, including pre and post visit work, for this date of service. Time listed does not include time spent on separately billable services. Physician Comments Reviewed assessment and plan as explained. I discussed with the patient that per the [facility]'s guidelines he is required to be in mandatory self quarantine for 14 days following his last known exposure to COVID-19, regardless of a potential Negative test result today. The patient verbalized understanding and agreed with plan. Answered all questions upon discharge. Problem List/Past Medical History Ongoing No chronic problems Historical No qualifying data Procedure/Surgical History none Medications diclofenac 1% topical gel, 1 joshua, Topical, QID, PRN, Not taking diclofenac sodium 75 mg oral delayed release tablet, 75 mg= 1 tabs, Oral, BID, Not taking lidocaine 5% topical film, 1 patches, Topical, Daily, PRN, Not taking Allergies No Known Allergies Social History Tobacco Former smoker, quit more than 1 year ago Use:. Family History Family history is negative Diagnostic Results No qualifying data available (XRay) No qualifying data available (CT) No qualifying data available (more content not included)... [facility] CoV2 Agon 04-22-2021 Employed in healthcare? No [facility] Comment on above: Performed By: #### C D:[id number] ####[place] [address] Group care resident? No [facility] Comment on above: Performed By: #### C [id number] ####[place] [id number] In ICU? No [facility] Comment on above: Performed By: #### C D:[id number] ####[place] [id number] status? Not Applicable [facility] Comment on above: Performed By: #### C [id number] ####[place] [id number] SARS-CoV-2 (COVID-19) RNA LUCERO+probe Ql (Unsp spec) Normal Negative [facility] Comment on above: Result Comment: * Ne gative (Non-Reactive) * Negative results from patients with symptom onset outside of one to six days should be treated as presumptive. A false-negative test result may occur if the level of viral antigen in a sample is below the detection limit of the test or if the sample was collected or transported improperly; therefore, a negative test result does not eliminate the possibility of SARS-CoV-2 infection. Negative results should not be used as the sole basis for treatment or patient management decisions, including infection control decisions. Negative results should be considered in the context of a patient?s recent exposures, history and the presence of clinical signs and symptoms consistent with COVID-19. Negative ADDITIONAL INFORMATION: Testing performed on the [employer]00 using the SARS-CoV-2 Antigen test. Results are for the identification of SARS-CoV-2 nucleocapsid antigen. The [employer] SARS-CoV-2 Antigen test can detect both viable and non-viable SARS-CoV-2 material. The [employer] SARS-CoV-2 Antigen test performance depends on antigen load and may not correlate with other diagnostic methods performed on the same specimen. The performance of this test has not been evaluated for use in patients without signs and symptoms of respiratory infection. Test results should be considered in the context of all available clinical and diagnostic information, including patient history and other test results. In the [place], the VITROS SARS-CoV-2 Antigen test is only for use under the Food and Drug Administration?s Emergency Use Authorization. HCP Fact Sheet: https://www.fda.gov/media/233000/download Patient Fact Sheet: https://www.fda.gov/media/860809/download Performed By: #### C [id number] ####[address] [address] SARS-CoV-2 (COVID-19) RNA LUCERO+probe Ql (Unsp spec) No Normal [facility] Comment on above: Performed By: #### C [id number] ####[place] [id number] [place] [address] SARS-CoV-2 (COVID-19) RNA LUCERO+probe Ql (Unsp spec) Unknown Normal [facility] Comment on above: Performed By: #### C [id number] ####[place] [address] [place] [address] Symptomatic as defined by CDC? Yes Normal [facility] Comment on above: Performed By: #### C [id number] ####[place] [address] [place] [address] Urgent Care Office/Clinic No sam 04-22-2021 Urgent Care Office/Clinic Note Chief Complaint pt states drainage, stuffy nose, x 2 days History of Present Illness Pleasant 20-year-old male presents for evaluation of sinus congestion/drainage and sore throat for the past 2 days. Patient reports that this morning he began having aches intermittent nonproductive cough. Does report that he has had a low-grade fever at home, was noted to have a temperature of 37.4 ?C in the office today. Denies that he has experienced any chest pain, wheezing, shortness of breath, or GI concerns. He denies any known exposure to COVID-19 or other recent sick contacts. Patient is not vaccinated against COVID-19 and has not had COVID-19 in the past. Reports that he took 1 dose of Benadryl this morning so he could get some sleep. Reports that he has been able to tolerate adequate oral intake of food and fluids. Review of Systems General: +Low grade fever. No chills, body aches or fatigue. No unexplained weight loss or change in appetite. HEENT: No visual changes, blurred vision, or double vision. No eye pain. No ear pain. No change in hearing or tinnitus. +nasal drainage. +nasal congestion. +sinus pressure. +sore throat. Cardiovascular: No chest pain, palpitations, or syncope. Pulmonary: No shortness of breath, wheezing. +Mild nonproductive cough. GI: No nausea, vomiting or diarrhea. No abdominal pain. Musculoskeletal: No weakness, joint pain, back pain. Neuro: No headache. No dizziness. Skin: Denies rashes or other acute changes. Physical Exam Vitals & Measurements T: 37.4 ?C (Oral) HR: 80 (Peripheral) RR: 18 BP: 134/83 SpO2: 97 HT: 167 cm WT: 122.5 kg WT: 122.5 kg (Dosing) BMI: 43.92 General: Well-developed, in no acute distress. Neuro: Alert and oriented. Gait is steady. Speech is clear and appropriate. Eyes: PERRL. Conjunctiva clear without erythema or drainage. Nose: + Turbinates mildly erythematous and edematous bilaterally. + Clear rhinorrhea. + Congestion noted. Ears: Canals visualized without any erythema, edema, or discharge. Unable to visualize bilateral TMs due to cerumen impaction. Pharynx: + Posterior oropharynx erythematous without edema or exudate. Mucous membranes moist. Sinuses: No tenderness to palpation of the frontal and maxillary sinuses. Neck: Trachea midline. No lymphadenopathy. CV: Regular rate and rhythm. No murmurs, gallops, or rubs. Lungs: Clear to auscultation bilaterally. No wheezes, crackles, or rhonchi. Good air exchange bilaterally. Skin: Warm, dry, intact. No rashes, lesions, or open wounds. SARS-CoV-2 antigen swab sent to the lab for evaluation. Additional Vitals No qualifying data available. Assessment/Plan 1. Viral URI COVID-19 antigen swab sent to the lab for evaluation. We will call you with your results when they become available. You should remain quarantined until you receive your results. Anyone in your home who is not vaccinated should also remain quarantined. Anyone in your home who is vaccinated but is not showing any symptoms of COVID-19 does not need to quarantine. May use [id number] Tylenol and Motrin for pain relief. May use [id number] Chloraseptic throat spray, lozenges, cool or warm fluids for throat pain relief. Gargle with warm salt water 2-3 times daily as needed. Increase water intake and rest. Also recommend using nasal saline spray for treatment of sinus congestion and postnasal drip. Delsym cough medicine as needed as directed on the packaging for cough. If you are positive for COVID-19: You will receive a phone call from the health department regarding your testing. You should remain quarantined at home until you are cleared by the health department. Do not go out into the public. Everyone in your household should also quarantine. Go to the emergency room for worsening symptoms such as difficulty breathing or increased shortness of breath. Follow-up with primary care provider should symptoms persist beyond 7-10 days. Go to emergency department for any change in or worsening of symptoms. Ordered: SARS-CoV-2 Antigen Medical Decision Making Patient is well and nontoxic-appearing upon evaluation. Vital signs are stable. Reviewed assessment and plan of care with patient. Patient verbalized understanding and agreed with plan. No further questions or concerns upon discharge. Chronic conditions NOT treated during this visit that affected my overall medical decision making: [] Treatment plans discussed but not opted for at this time: [] Prescribed medication that requires intensive monitoring for toxicity: [] I have reviewed the patient?s medication list for medication interactions/contraind ications and/or for upcoming procedures: [yes] Time Spent with the Patient I have personally spent [12] minutes on this date, directly related to today's patient visit, including pre and post visit work, for this date of service. Time listed does not include time spent on separately billable services. Problem List/Past Medical History Ongoing No c (more content not included)... Normal [facility] Orthopedic Office/Clinic Not zeenat 03-16-2021 Orthopedic Office/Clinic Note Chief Complaint Chief Complaint f/u Lt shoulder. History of Present Illness HISTORY: This 20 year old male presents to the office with complaints of left shoulder pain over a period of time. He went to [facility] for treatment on 01-29-21. Reports to injury 1 year prior. Pain after catching a wooden pallet from falling. Pain has remained. He received treatment from PCP who referred him to physical therapy. Patient did not follow recommendations. He has been having continued pain posterior shoulder and neck. Denies any new accidents or injuries. Denies any bruising, swelling or deformity. PAIN: Location: left shoulder- posterior Onset date: months Character/Quality: Throbbing, aching, sharp stabbing Severity: 5 out of 10 Timing: Constant Aggravating factors: Use Relieving factors: Rest, ice Review of Systems GENERAL: No weakness, malaise EYES: No pain, redness, discharge NECK: No, swelling, stiffness CARDIOVASCULAR: No chest pain, palpitations RESPIRATORY: No shortness of breath, cough, wheezing, and pleuritic chest pain ABDOMEN/GI: No, nausea, vomiting MUSCULOSKELETAL: Positive per HPI SKIN: No rash, discoloration NEURO: No, numbness, tingling, and seizure Physical Exam PHYSICAL EXAM VITALS: As entered CONSTITUTIONAL: Alert, oriented to person place and time, good hygiene and grooming, patient appears well nourished and well developed HEAD: Normocephalic, atraumatic EYES: Equal and reactive to light. Extraocular movements are normal. Pupils equal in size. Sclera and conjunctiva appeared normal. EARS, NOSE, AND THROAT: Ears and nose were normal in appearance. Appearance neck was normal, no neck mass was observed. RESPIRATORY: No respiratory distress, normal respiratory rhythm and effort, no accessory muscle use SKIN: Normal skin color and pigmentation, normal skin turgor, no rash PSYCHIATRIC: Oriented to person place and time, insight and judgment were intact, mood and affect were normal. NEUROLOGIC: Coordination intact, motor strength, sensation, reflexes as per musculoskeletal exam HEMATOLOGICAL/LYMPHATI C: No lymphadenopathy upper or lower extremities MUSCULOSKELETAL: LEFT SHOULDER EXAM: INSPECTION: No swelling, no erythema, no ecchymosis, no rash, no scars, no scapular winging, no mary kate muscle PALPATION: AC joint non tender Subacromial space mild tender Biceps non tender Anterior glenohumeral mild tender Posterior glenohumeral mild tender Crepitus non ROM: Flexion 100 degrees active, Flexion 016 degrees passive, External rotation in adduction 60 degrees, External rotation 90 degrees in 90? of abduction, Internal rotation thumb behind the spine to level of T7 STRENGTH: External rotation 4/5, Internal rotation 5/5, Abduction 4/5 SPECIAL TESTS: Impingement positive Speeds test positive Valentin positive Talpa's negative Liftoff negative Crossover negative Fall back negative NEUROVASCULAR: Radial pulse + 2, capillary refill less than 2 seconds, sensation intact median nerve territory to light touch, sensation intact ulnar nerve territory to light touch, sensation intact radial nerve territory to light touch,Thenar strength 5/5, Intrinsic strength 5/5 RADIOGRAPHIC IMAGING: X-RAY: Images: 3 views of left shoulder Clinical information: Pain, no known injury Findings: Subacromial space 9 MM no Elevation of humeral head Mild sclerosis of greater tuberosity Glenohumeral space 5 mm, Osteophytes no humeral head, no glenoid No sclerosis and cystic changes of humeral head No sclerosis and cystic changes No new fractures, dislocations or significant change when compared with previous films Additional Vitals No qualifying data available. Assessment/Plan Lengthy discussion regarding differential diagnosis, plan of care, rationale, conservative treatment. Reviewed x-rays. Recommend physical therapy to include cervical trapezius as well as shoulder. Order diclofenac topical and tablets. Follow-up in 2 to 3 weeks. They verbalized understanding agreement with plan of care. PATIENT EDUCATION: Discussed rationale behind my recommendations with patient. Patient was encouraged to ask questions and all questions answered to their satisfaction. The importance of compliance, as well as the risks of noncompliance, with the recommended treatment plan was discussed. Patient was counseled on proper diet. The benefits of exercise were reviewed at length with the patient. Discussed rationale and proper use of patient's medications. The patient is aware of the potential adverse effects of anti-inflammatory medication, including: Abdominal pain, bleeding from or perforation of gastrointestinal tract, inflammation of gastric or duodenal lining, possible ulcer formation, and potential adverse effects on liver or kidneys. Discussed risks, benefits, alternatives of surgery at length. COUNSELING: Discussed diagnosis, treatment plan, options and treatment as well as benefits, outcomes, risks, of t (more content not included)... Normal [facility] Comment on above: Order Comment: no sh Orthopedic Office/Clinic Not zeenat 03-02-2021 Orthopedic Office/Clinic Note Chief Complaint Tongsman- left shoulder/ neck pain History of Present Illness HISTORY: This 20 year old male presents to the office with complaints of left shoulder pain over a period of time. He went to [facility] for treatment on 01-29-21. Reports to injury 1 year prior. Pain after catching a wooden pallet from falling. Pain has remained. He received treatment from PCP who referred him to physical therapy. Patient did not follow recommendations. He has been having continued pain posterior shoulder and neck. Denies any new accidents or injuries. Denies any bruising, swelling or deformity. PAIN: Location: left shoulder- posterior Onset date: months Character/Quality: Throbbing, aching, sharp stabbing Severity: 5 out of 10 Timing: Constant Aggravating factors: Use Relieving factors: Rest, ice Review of Systems The patient's review of systems, past medical history/medications/al lergies were reviewed and discussed with the patient. GENERAL: No weakness, malaise EYES: No pain, redness, discharge NECK: No, swelling, stiffness CARDIOVASCULAR: No chest pain, palpitations RESPIRATORY: No shortness of breath, cough, wheezing, and pleuritic chest pain ABDOMEN/GI: No, nausea, vomiting MUSCULOSKELETAL: Positive per HPI SKIN: No rash, discoloration NEURO: No, numbness, tingling, and seizure Physical Exam Vitals & Measurements HR: 80 (Peripheral) BP: 133/77 HT: 185 cm WT: 126.3 kg WT: 126.3 kg (Dosing) BMI: 36.9 PHYSICAL EXAM VITALS: As entered CONSTITUTIONAL: Alert, oriented to person place and time, good hygiene and grooming, patient appears well nourished and well developed HEAD: Normocephalic, atraumatic EYES: Equal and reactive to light. Extraocular movements are normal. Pupils equal in size. Sclera and conjunctiva appeared normal. EARS, NOSE, AND THROAT: Ears and nose were normal in appearance. Appearance neck was normal, no neck mass was observed. RESPIRATORY: No respiratory distress, normal respiratory rhythm and effort, no accessory muscle use SKIN: Normal skin color and pigmentation, normal skin turgor, no rash PSYCHIATRIC: Oriented to person place and time, insight and judgment were intact, mood and affect were normal. NEUROLOGIC: Coordination intact, motor strength, sensation, reflexes as per musculoskeletal exam HEMATOLOGICAL/LYMPHATI C: No lymphadenopathy upper or lower extremities MUSCULOSKELETAL: LEFT SHOULDER EXAM: INSPECTION: No swelling, no erythema, no ecchymosis, no rash, no scars, no scapular winging, no mary kate muscle PALPATION: AC joint non tender Subacromial space mild tender Biceps non tender Anterior glenohumeral mild tender Posterior glenohumeral mild tender Crepitus non ROM: Flexion 100 degrees active, Flexion 016 degrees passive, External rotation in adduction 60 degrees, External rotation 90 degrees in 90? of abduction, Internal rotation thumb behind the spine to level of T7 STRENGTH: External rotation 4/5, Internal rotation 5/5, Abduction 4/5 SPECIAL TESTS: Impingement positive Speeds test positive Valentin positive Talpa's negative Liftoff negative Crossover negative Fall back negative NEUROVASCULAR: Radial pulse + 2, capillary refill less than 2 seconds, sensation intact median nerve territory to light touch, sensation intact ulnar nerve territory to light touch, sensation intact radial nerve territory to light touch,Thenar strength 5/5, Intrinsic strength 5/5 RADIOGRAPHIC IMAGING: X-RAY: Images: 3 views of left shoulder Clinical information: Pain, no known injury Findings: Subacromial space 9 MM no Elevation of humeral head Mild sclerosis of greater tuberosity Glenohumeral space 5 mm, Osteophytes no humeral head, no glenoid No sclerosis and cystic changes of humeral head No sclerosis and cystic changes No new fractures, dislocations or significant change when compared with previous films Additional Vitals No qualifying data available. Assessment/Plan 1. Subacromial impingement of left shoulder Ordered: diclofenac, 1 tabs, Oral, BID, # 60 tabs, 0 Refill(s), Pharmacy: [facility] #[id number] diclofenac topical, 1 joshua, Topical, QID, PRN, # 100 g, 0 Refill(s), Pharmacy: [id number] Referral to Physical Therapy 2. Strain of cervical portion of left trapezius muscle Ordered: Referral to Physical Therapy 3. Left shoulder pain Ordered: Referral to Physical Therapy Orders: External Referral PLAN: Lengthy discussion regarding differential diagnosis, plan of care, rationale, conservative treatment. Reviewed x-rays. Recommend physical therapy to include cervical trapezius as well as shoulder. Order diclofenac topical and tablets. Follow-up in 2 to 3 weeks. They verbalized understanding agreement with plan of care. PATIENT EDUCATION: Discussed rationale behind my recommendations with patient. Patient was encouraged to ask questions and all questions answered to their satisfaction. The importance of compliance, as well as the ri (more content not included)... Normal [facility] XR Shoulder Complete Lefton 03-02-2021 XR Shoulder Complete Left Images: 3 views of left shoulder Clinical information: Pain, no known injury Findings: Subacromial space 9 MM no Elevation of humeral head Mild sclerosis of greater tuberosity Glenohumeral space 5 mm, Osteophytes no humeral head, no glenoid No sclerosis and cystic changes of humeral head No sclerosis and cystic changes No new fractures, dislocations or significant change when compared with previous films Final Signed by: Christiano Matthews MD Signed (Electronic Signature): 03/02/2021 10:57 am Transcribed by: MAXWELL Transcribed DT/TM: 03/02/2021 10:47 (If Report Is Signed, Electronically Signed in Other Vendor System) Normal [facility] Orthopedic Office/Clinic Not zeenat 02-23-2021 Orthopedic Office/Clinic Note Chief Complaint 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 He went to [facility] for treatment on 01-29-21. PAIN: Location:left shoulder Onset date:years Character/Quality: Throbbing, aching, sharp stabbing Severity: 8 out of 10 Timing: Constant Aggravating factors: Use Relieving factors: Rest, ice Physical Exam General: well-developed, in no acute distress. Neuro: Alert and oriented. Gait is steady. Speech is clear and appropriate. Musculoskeletal: Unable to lift left arm above head secondary to pain. Flexion, extension strength 5/5 for both upper extremities bilaterally. Sensation intact and equal in bilateral upper extremities. Negative drop test. Negative can sign. Able to fully internally and externally rotate left shoulder. Pain present with palpation of left AC joint, humeral head, and over left trapezius. Skin: Warm, dry, intact. No rashes, lesions, or open wounds. X-ray by myself is negative for acute abnormality. Patient placed in left arm sling. XR Shoulder Complete Left 01/29/21 14:23:25 IMPRESSION: Normal left shoulder radiographs. Signed By: Sravan BRAY, Adolfo Winston Additional Vitals No qualifying data available. Assessment/Plan Left shoulder pain Take Flexeril as prescribed at bedtime. This medication may make you sleepy. This will help loosen your muscles do not feel as stiff when you wake up in the morning. Apply lidocaine patches as prescribed. Use sling for comfort/support. We will call you with the final radiologist read of your x-ray. RICE-rest, ice, compress, elevate. Tylenol/Ibuprofen as needed for pain, swelling. Ice 3 times a day for 15 minutes at a time for swelling for the next 48 hrs. Make a follow-up appointment with [facility]. Go to the emergency department for any worsening symptoms such as numbness/tingling to the extremity, or any other concerns. Problem List/Past Medical History Ongoing No qualifying data Historical No qualifying data Medications lidocaine 5% topical film, 1 patches, Topical, Daily, PRN Allergies No Known Allergies Social History Tobacco Never (less than 100 in lifetime) Use:. Electronically Signed by Jesica, [place] 02/11/21 13:31 EDT Electronically Signed by Jesica, [place] 02/11/21 13:41 EDT Electronically Signed by Jesica, [place] 02/17/21 11:44 EDT Candice Brambila PA-C [facility] Comment on above: Order Comment: no sh ow Vital Signs Date Time Vital Sign Value Performing Clinician Facility 08-19-2023 16:40-0500 Body height 185.42 cm Brigette Vizcaino Other [facility] Other 08-19-2023 16:40-0500 Body mass index (BMI) [Ratio] 30.55 kg/m2 Brigette Vizcaino Other [facility] Other 08-19-2023 16:40-0500 Body temperature 98.3 [degF] Brigette Vizcaino Other [facility] Other 08-19-2023 16:40-0500 Body weight 105.05 kg Brigette Vizcaino Other [facility] Other 08-19-2023 16:40-0500 Diastolic blood pressure 62 mm[Hg] Brigette Vizcaino Other [facility] Other 08-19-2023 16:40-0500 Respiratory rate 18 /min Brigette Vizcaino Other [facility] Other 08-19-2023 16:40-0500 SaO2% (BldA) [Mass fraction] 97 % Brigette Perezmond Other [facility] Other 08-19-2023 16:40-0500 Systolic blood pressure 123 mm[Hg] Brigette Vizcaino Other [facility] Other 12-14-2022 16:40-0400 Body height 185.42 cm Joana Mendes Other [facility] Other 12-14-2022 16:40-0400 Body temperature 98.6 [degF] Joana Mendes Other [facility] Other 12-14-2022 16:40-0400 Diastolic blood pressure 78 mm[Hg] Joana Mendes Other [facility] Other 12-14-2022 16:40-0400 Respiratory rate 18 /min Joana Mendes Other [facility] Other 12-14-2022 16:40-0400 SaO2% (BldA) [Mass fraction] 97 % Joana Mendes Other [facility] Other 12-14-2022 16:40-0400 Systolic blood pressure 129 mm[Hg] Joana Mendes Other [facility] Other 11-19-2021 11:25-0400 Blood Pressure Location Catrachito Esposito Jr. [facility] 11-19-2021 11:25-0400 Body temperature 98.42 [degF] Catrachito Esposito Jr. [facility] 11-19-2021 11:25-0400 BP/Pulse Patient Position Catrachito Esposito Jr. [facility] 11-19-2021 11:25-0400 Diastolic blood pressure 81 mm[Hg] Catrachito Esposito Jr. [facility] 11-19-2021 11:25-0400 Heart rate 67 /min Catrachito Esposito Jr. [facility] 11-19-2021 11:25-0400 Mean blood pressure 99 mm[Hg] Catrachito Esposito Jr. [facility] 11-19-2021 11:25-0400 Respiratory rate 16 /min Catrachito Esposito Jr. [facility] 11-19-2021 11:25-0400 SaO2% (BldA) [Mass fraction] 97 % Catrachito Esposito Jr. [facility] 11-19-2021 11:25-0400 Systolic blood pressure 136 mm[Hg] Catrachito Esposito Jr. [facility] 11-19-2021 10:09-0400 Blood Pressure Location Catrachito Esposito Jr. [facility] 11-19-2021 10:09-0400 Body temperature 97.88 [degF] Catrachito Esposito Jr. [facility] 11-19-2021 10:09-0400 BP/Pulse Patient Position Catrachito Esposito Jr. [facility] 11-19-2021 10:09-0400 Diastolic blood pressure 75 mm[Hg] Catrachito Esposito Jr. [facility] 11-19-2021 10:09-0400 Heart rate 68 /min Catrachito Esposito Jr. [facility] 11-19-2021 10:09-0400 Mean blood pressure 95 mm[Hg] Catrachito Esposito Jr. [facility] 11-19-2021 10:09-0400 Respiratory rate 14 /min Catrachito Esposito Jr. [facility] 11-19-2021 10:09-0400 SaO2% (BldA) [Mass fraction] 98 % Catrachito Esposito Jr. [facility] 11-19-2021 10:09-0400 Systolic blood pressure 133 mm[Hg] Catrachito Esposito Jr. [facility] 11-19-2021 10:05-0400 Blood Pressure Location Catrachito Esposito Jr. [facility] 11-19-2021 10:05-0400 Body temperature 97.88 [degF] Catrachito Esposito Jr. [facility] 11-19-2021 10:05-0400 Diastolic blood pressure 68 mm[Hg] Catrachito Esposito Jr. [facility] 11-19-2021 10:05-0400 Heart rate 74 /min Catrachito Esposito Jr. [facility] 11-19-2021 10:05-0400 Respiratory rate 12 /min Catrachito Esposito Jr. [facility] 11-19-2021 10:05-0400 SaO2% (BldA) [Mass fraction] 97 % Catrachito Esposito Jr. [facility] 11-19-2021 10:05-0400 Systolic blood pressure 115 mm[Hg] Catrachito Esposito Jr. [facility] 11-19-2021 09:50-0400 Respiratory rate 20 /min Catrachito Esposito Jr. [facility] 11-19-2021 09:45-0400 Respiratory rate 13 /min Catrachito Esposito Jr. [facility] 11-19-2021 09:36-0400 Body temperature 97.16 [degF] Catrachito Esposito Jr. [facility] 11-19-2021 09:30-0400 Respiratory rate 17 /min Catrachito Esposito Jr. [facility] 11-19-2021 07:16-0400 Mean blood pressure 95 mm[Hg] Catrachito Esposito Jr. [facility] 11-19-2021 07:15-0400 Body temperature 97.88 [degF] Catrachito Esposito Jr. [facility] 11-19-2021 07:15-0400 Heart rate 80 /min Catrachito Esposito Jr. 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 Brigette Vizcaino Work Phone: [facility] [place] Work Phone: Start: 08-19-2023 End: 08-19-2023 ambulatory Brigette Vizcaino [facility] [employer] Other Start: 08-19-2023 Office outpatient vi sit 15 minutes Brigette Vizcaino [facility] Start: 08-03-2023 End: 08-04-2023 ambulatory Jakob Velasquez Facility:[facility] [place] [facility] Start: 05-04-2023 End: 05-05-2023 ambulatory Jakob Velasquez Facility:[facility] [place] [facility] Start: 05-03-2023 ambulatory Jakob Velasquez Facility:[facility] Start: 02-24-2023 End: 02-24-2023 ambulatory Tejal Gomez Facility:[facility] Start: 02-24-2023 End: 02-24-2023 ambulatory INSURANCE SALES ASSOCIATE Tejal Gomez Work Phone: [facility] Work Phone: Start: 02-24-2023 End: 02-24-2023 Patient encounter procedure INSURANCE SALES ASSOCIATE Tejal Gomez Work Phone: [facility] Work Phone: Start: 12-14-2022 End: 12-14-2022 ambulatory Joana Mendes Other [employer] Other Start: 12-14-2022 Office outpatient vi sit 25 minutes Joana Mendes [facility] Start: 01-14-2022 End: 01-14-2022 Emergency department patient visit TAMMY Beth Facility:[facility] Start: 12-03-2021 End: 12-03-2021 Emergency department patient visit ELIZABETH JAUREGUI Facility:[facility] Start: 11-19-2021 End: 11-19-2021 Admission to same day surgery center Catrachito Esposito Jr. [facility] Start: 11-16-2021 End: 02-14-2022 Recurring Catrachito Esposito Jr. [facility] Start: 04-12-2018 End: 04-12-2018 Patient encounter ELIZABETH JAUREGUI Facility:[facility] Procedures Date Procedure Procedure Detail Performing Clinician Start: 02-24-2023 X-ray of right ankle AP RN Tejal Gomez Work Phone: Start: 11-19-2021 Cystoscopy Catrachito hager Jr. Start: 11-19-2021 Incision of urethra Carlos Esposito Jr. Start: 10-26-2021 Cystourethroscopy wi th dilation of urethral stricture Catrachito Esposito Jr. Plan of Treatment Date Care Activity Detail Author Chlamydia trachomati s DNA [Presence] in Unspecified specimen by LUCERO with probe detection [facility] enter Neisseria gonorrhoea e DNA [Presence] in Unspecified specimen by LUCERO with probe detection [facility] enter Trichomonas vaginali s DNA [Presence] in Unspecified specimen by LUCERO with probe detection [facility] enter Payers Date Payer Category Payer Self-pay [id number] 2022 Medicaid [id number] 2. [id number] 2021 Unknown 2000 Unknown [id number] 2.16. [id number] 2000 Unknown [id number] 2.16. [id number] 2000 Unknown [id number] 2.16.8 [id number] 2000 Unknown [id number] 2.16.8 [id number] 1959 Unknown [id number] Unknown [id number] 2.16.8 [id number] Unknown [id number] 2.16.8 [id number] Social History Date Type Detail Facility Start: 11-12-2021 Tobacco smoking status Light t obacco smoker (finding) [facility] Sex Assigned At Male [facility] Start: 2000 Sex Assigned At Male [facility] Clinical Notes 04-22-2021 to 08-19-2023 Note Date & Type Note Facility 08-19-2023 Evaluation note Encounter Date Diagnosis Assessment Notes Aug, Dysuria (ICD-10 - R30.0) Drink plenty fluids, get plenty of rest. Take Tylenol or Motrin as needed for aches pains or fevers. Follow-up with your family physician if no improvement in 2 to 3 days. Patient denies suspicion of STDs however he does agree to having his urine tested for STDs. No empiric treatment will be given. He has no discharge or lesions or testicular pain. [facility] Other 05-02-2023 Evaluation note* Encounter Date Diagnosis Assessment Notes Treatment Notes Treatment Clinical Notes December, Bronchitis (ICD-10 - J40) Discussed diagnosis with patient in detail. Will treat as viral today based on physical exam and duration of symptoms, antibiotics are not indicated for viral infections. Advised patient that viral syndromes last 7-10 days, cough may linger for 3 weeks. Take medications as prescribed, reviewed side effects of steroid, take with food and plenty of water. Supportive care as directed, push fluids and rest, may use Tylenol/Motrin as needed for fever/discomfort, cool mist humidifier. May use [place] as needed for cough, do not take any other OTCs while using [place]. Patient to follow up with PCP in 2-3 days if symptoms do not improve. Immediate eval if SOB, difficulty breathing, chest pain, dizziness, or other concerning symptoms. Patient verbalizes understanding and is agreeable to treatment plan. [employer] Other 04-21-2022 NoteProcedure: Acute abdomen series, including supine and upright PA views of the abdomen and PA view of the chest. Clinical Information: 21-year-old male with lower abdominal and left lower back pain. No bowel movement x3 days. Comparison: Chest radiographs 01/15/2021. Findings: Bowel: Two gas-distended adjacent small bowel loops in the right upper quadrant. Overall nonobstructive bowel gas pattern. Pathologic calcifications: 0.3 cm calcification in the region of the proximal left ureter. Pneumoperitoneum: None. Lungs/pleura: Grossly clear. No pneumothorax or evidence for pleural effusion. Heart/mediastinum: Normal cardiomediastinal silhouette. Bones/soft tissues: Grossly normal. IMPRESSION: 1. Possible focal ileus in the right upper quadrant, could indicate inflammation in the region of the pancreatic head, right kidney, and/or duodenum. 2. 0.3 cm possible proximal left ureteral stone. 3. No active cardiopulmonary disease. Final Dictated by: Asael Jarquin MD Dictated DT/TM: 12/03/2021 1:18 pm Signed by: Asael Jarquin MD Signed (Electronic Signature): 12/03/2021 1:24 pm (If Report Is Signed, Electronically Signed in Other Vendor System)[facility]04-07-2022 Hospital Discharge instructions Patient Education 11/19/2021 10:29:07 Saleh Catheter Care, [place] [place] Saleh Catheter Care, Male A Saleh catheter is a soft, flexible tube that is placed into the bladder to drain urine. The catheter has a balloon to hold it inside the bladder. A Saleh catheter may be inserted if: You leak urine or are not able to control when you urinate (urinary incontinence). You are not able to urinate when you need to (urinary retention). You had prostate surgery or surgery on the genitals. You have certain medical conditions, such as multiple sclerosis, dementia, or a spinal cord injury. To Prevent Infection: 1. Wash your hands with soap and water before and after handling your catheter. 2. Using mild soap and warm water on a clean washcloth; twice a day. Clean the area on your body closest to the catheter insertion site using a circular motion, moving away from the catheter. Never wipe toward the catheter because this could sweep bacteria up into theurethra and cause infection. Remove all traces of soap. Pat the area dry with a clean towel and reposition the foreskin. No tub baths. No lotions, powders, or sprays unless directed by your physician. 3. Keep the tube secure. Do not let the tube pull or catch when you are moving around. Attach the catheter to your leg so there is no tension on the catheter. Use adhesive tape or a leg strap. If you are using adhesive tape, remove any sticky residue left behind by the previous tape you used. 4. Replace wet leg straps with dry ones. 5. Wear cotton underwear to absorb moisture and keep hunter skin diver. 6. Keep the drainage bag below the level of the bladder, but keep it off the floor. 7. Check throughout the day to be sure the catheter is working and urine is draining freely. Make sure the tubing does not become kinked or looped. 8. Do not pull on the catheter or try to remove it. Pulling could damage internal tissues. TAKING CARE OF THE DRAINAGE BAGS You will be given two drainage bags to take home. One is a large overnight drainage bag, and the other is a smaller leg bag that fits underneath clothing. You may wear the overnight bag at any time, but you should never wear the smaller leg bag at night, unless directed by your physician. Follow the instructions below for how to empty and change your drainage bags. Emptying the Drainage Bag You must empty your drainage bag when it is ? full. 1. Wash your hands with soap and water before and after handling your catheter. 2. Keep the drainage bag below your hips, below the level of your bladder. This stops urine from going back into the tubing and into your bladder. 3. Hold the dirty bag over the toilet or a clean container. 4. Open the pour spout at the bottom of the bag and empty the urine into the toilet or container. Do not let the pour spout touch the toilet, container, or any other surface. Doing so can place bacteria on the bag, which can cause an infection. 5. Clean the pour spout with a gauze pad or cotton ball that has rubbing alcohol on it. 6. Close the pour spout. 7. Attach the bag to your leg with adhesive tape or a leg strap. Changing the Drainage Bag 1. Wash your hands with soap and water before and after handling your catheter. 2. Pinch off the rubber catheter so that urine does not spill out. 3. Disconnect the catheter tube from the drainage tube at the connection valve. Do not let the tubes touch any surface. 4. Clean the end of the catheter tube with an alcohol wipe. Use a different alcohol wipe to clean the end of the drainage tube. 5. Connect the catheter tube to the drainage tube of the clean drainage bag. 6. Attach the new bag to the leg with adhesive tape or a leg strap. Avoid attaching the new bag tootightly. 7. Place a cap on the drainage bag not in use and store in a clean towel. SEEK MEDICAL CARE IF: Your urine is cloudy or smells. Your catheter starts to leak. Your catheter falls out or is pulled out. You have pain, swelling, redness, or pus where the catheter enters the body. You have pain in the abdomen, legs, lower back, or bladder. You have a fever of 100.4 F (38 C) or higher You see pink, red, dark, coffee colored, or pus-like urine. You have nausea, vomiting, or chills. You are not feeling better in 2 to 3 days or you are feeling worse. You are not draining urine into the bag or your bladder feels full. MAKE SURE YOU: Understand the reason you have the catheter. Understand and follow these instructions to care for the catheter. Will watch your condition. Drink 6-8 glasses of water or liquids per day to keep your urine clear. Avoid Caffeinated drinks. They can irritate the bladder and cause bladder spasms. Keep your follow up appointments and call with any concerns. 11/19/2021 10:29:07 Post Op Patient Instructions - FT (Custom) Follow Up Care 10/29/2021 13:09:18 With:Catrachito Esposito Address: [facility] [address] [place] [address]- Business (1) When:3 to 5 days Comments:Nurse visit for Saleh catheter removal. [facility]01-13-2022 NotePatient Education Materials Name: Polina Hagan Current Date: 08/27/2021 15:19:43 [place] : 2000 The following sheet(s) are the Patient Education Leaflets for Polina Hagan Infectious Disease Coronavirus Disease 2019 (COVID-19): Caring for Yourself or Others If you or a household member have symptoms of COVID-19, follow the guidelines below for preventing spread of the virus, and managing symptoms. If you think you have COVID-19 symptoms ? Stay home. Call your healthcare provider and tell them you have symptoms of COVID-19. Do this before going to any hospital or clinic. Follow your provider's instructions. You may be advised to isolate yourself at home. This is called self-isolation. ? Don?t panic. Keep in mind that other illnesses can cause similar symptoms. ? Stay away from work, school, and public places. Limit physical contact with family members. Limitvisitors. Don't kiss anyone or share eating or drinking utensils. Clean surfaces you touch with disinfectant. This is to help prevent the virus from spreading. ? If you need to cough or sneeze, do it into a tissue. Then throw the tissue into the trash. If youdon't have tissues, cough or sneeze into the bend of your elbow. ? Don?t share food or personal items with people in your household. This includes items like eatingand drinking utensils, towels, and bedding. ? Wear a cloth face mask around other people. During a public health emergency, medical face masks may be reserved for healthcare workers. You may need to make a cloth face mask of your own. You can do this using a bandana, T-shirt, or other cloth. The [facility] has instructions on how to make a mask. ? If you need to go to a hospital or clinic, expect that the healthcare staff will wear protective equipment such as masks, gowns, gloves, and eye protection. You may be put in a separate room. This is to prevent the possible virus from spreading. ? Tell the healthcare staff about recent travel. This includes local travel on public transport. Staff may need to find other people you have been in contact with. ? Follow all instructions the healthcare staff give you. If you have been diagnosed with COVID-19 ? Stay home and start self-isolation. Don?t leave your home unless you need to get medical care. Don't go to work, school, or public areas. Don't use public transportation or taxis. ? Follow all instructions from your healthcare provider. Call your healthcare provider?s office before going. They can prepare and give you instructions. This will help prevent the virus from spreading. ? If you need to go to a hospital or clinic, expect that the healthcare staff will wear protective equipment such as masks, gowns, gloves, and eye protection. You may be put in a separate room. This is to prevent the possible virus from spreading. ? Wear a face mask. This is to protect other people from your germs. If you are not able to wear a mask, your caregivers should. During a public health emergency, medical face masks may be reserved for healthcare workers. You may need to make a cloth face mask of your own. You can do this using a bandana, T- shirt, or other cloth. The [facility] has instructions on how to make a mask. ? Stay away from other people in your home. ? Have no contact with pets and animals. ? Don?t share food or personal items with people in your household. This includes items like eatingand drinking utensils, towels, and bedding. ? If you need to cough or sneeze, do it into a tissue. Then throw the tissue into the trash. If youdon't have tissues, cough or sneeze into the bend of your elbow. ? Wash your hands often. Self-care at home There is currently no medicine approved to prevent or treat the virus. Some experimental and other medicines are being tested against COVID-19. Other medicines used to treat other conditions are being looked at for COVID-19, but they are not currently approved to treat it. Current treatment is mainly aimed at helping your body while it fights the virus. This is known as supportive care. Take care of yourself at home by: ? Getting rest. This helps your body fight the illness. ? Staying hydrated. Drink 6 to 8 glasses of liquids every day, or as advised by your provider. Goodchoices are water, sport drinks, soft drinks without caffeine, juices, tea, and soup. ? Taking pkry-mma-zdkztth (OTC) pain medicine. These are used to help ease pain and reduce fever. Follow your healthcare provider's instructions for which OTC medicine to use. If you've been in the hospital for suspected or confirmed COVID-19 and now are home, follow all of your healthcare team's instructions. This will include when it's OK to stop self-isolation. You may also get instructions on position changes to help your breathing, such as lying on your belly (pronepositioning). Caring for a sick person ? Follow all instructions from healthcare staff. ? Wash your hands often. ? Wear protective clothing (more content not included)...[facility]01-13-2022 NoteThis is a Telephone Appointment *This visit was conducted by Telephone with real time communicationand interaction. This was performed due to the current COVID-19 pandemic in order to minimize exposure to both patients and staff. The patient verbally consented to treatment. The patient understands their rights, the HIPAA risks and that they will be charged accordingly for the services rendered. Chief Complaint per pt he had fever tuesday-took home rapid, pos. needs test for work History of Present Illness Polina Hagan is a 21 Years old Male who presents with cough, fever, nasal congestion and rhinorrhea that started Tuesday. Patient took an at home COVID-19 test that was positive. He states that his fever was as high as 102 the past 2 days but he has not had a fever today. Patient's been taking Tylenol dlix-fph-kyhuezw for symptom management. Patient states that he has had some diarrhea but denies any nausea or vomiting. He has not had any shortness of breath or wheezing. He has no known exposure to COVID-19 and is not vaccinated. Review of Systems Constitutional: No chills, sweats POSITIVE fever HEENT: No ear pain, sore throat POSITIVE nasal congestion, rhinorrhea Respiratory: No shortness of breath, wheezing POSITIVE cough Cardiovascular: No Chest pain Gastrointestinal: No nausea, vomiting POSITIVE diarrhea Skin: No rashes noted Physical Exam Limited physical exam due to the nature of this visit Voice quality: clear Additional Vitals No qualifying data available. Assessment/Plan 1. COVID-19 virus infection Continue to treat your symptoms with mmxz-jkg-oaxisqb medication. Drink plenty of fluids and take Tylenol as needed for symptom management for body aches, headaches and fevers. expect a call from thehealth department.. At this time you need to quarantine a total of 5 days from the start of symptoms. Avoid contact with others to prevent the spread. If you have developed worsening or severe symptoms such as shortness of breath, confusion, weaknesson one side of your body, chest pain, unable to keep fluids down, fevers out of control, follow-up in the emergency department. While there is extremely limited data, the following cocktail may have a role in prevention/mitigation of COVID-19 disease. It should however by noted that a recent publication suggests that melatonin may reduce the risk of COVID-19 infection. This cocktail is cheap, safe and widely available. Vitamin C 500 mg BID and Quercetin 250-500 mg BID Zinc 50-75 mg/day (zinc lozenges preferred, after 1 months, reduce to 30-50 mg/day) Melatonin (slow release) Begin with 0.3 mg and increase as tolerated to 2 mg at night Vitamin D3 2950-3937 u/day Optional: Famotidine 20-40 mg/day (for reflux/stomach upset) Time Spent with the Patient Today's visit was performed via telehealth and utilized an audio only connection. Duration of the visit in conversation with the patient: [12] Physician Comments Reviewed assessment and plan as explained above and patient is agreeable. No questions upon discharge. Patient medical history reviewed, vital signs and nurses notes reviewed as documented. Problem List/Past Medical History Ongoing No chronic problems Historical No qualifying data Procedure/Surgical History none Medications diclofenac 1% topical gel, 1 joshua, Topical, QID, PRN, Not taking diclofenac sodium 75 mg oral delayed release tablet, 75 mg= 1 tabs, Oral, BID, Not taking lidocaine 5% topical film, 1 patches, Topical, Daily, PRN, Not taking Allergies No Known Allergies Social History Tobacco Former smoker, quit more than 1 year ago Use:. Family History Family history is negative Lab Results Test Name Test Result Date/Time POC SARS Antigen Card Positive 08/27/2021 14:53 EST Electronically signed by Lilian Vicente 08/27/21 15:12 [facility]10-06-2021 NotePatient Education Materials Name: Polina Hagan Current Date: 05/20/2021 16:24:38 Janine/[facility] : 2000 The following sheet(s) are the Patient Education Leaflets for Polina Hagan Infectious Disease Coronavirus Disease 2019 (COVID-19): Prevention The best prevention is to have no contact with the SARS-CoV-2 virus. There is no vaccine yet. Canceling travel and other outings Stay informed about COVID-19 in your area. Follow local instructions about being in public. Be aware of events in your community that may be postponed or canceled, such as school and sporting events.You may be advised not to attend public gatherings. You will be advised to stay at least 6 feet from others as much as possible. This is called socialdistancing. You may be advised to stay at home and isolate yourself as much as possible if COVID-19 is in your area. You may hear terms such as self isolate, quarantine, ?stay at home,? ?correction in place,? and ?lockdown.? The CDC advises that people should not travel to areas where there are COVID-19 outbreaks right nowfor any reason that is not urgent. For the most current CDC travel advisories, visit the CDC website at www.cdc.gov/coronavirus/2019- ncov/travelers. Don?t go on cruises or do non-essential travel right now. When you are at home ? Wash your hands often. Use soap and clean, running water for at least 20 seconds. ? If you don't have access to soap and water, use an alcohol-based hand managing member often. Make sure it has at least 60% alcohol. ? Don't touch your eyes, nose, or mouth unless you have clean hands. ? Don?t kiss someone who is sick. ? If you need to cough or sneeze, do it into a tissue. Then throw the tissue into the trash. If youdon't have tissues, cough or sneeze into the bend of your elbow. ? When possible, don't touch high-touch shared surfaces such as doorknobs and handles, cabinet handles, and light switches. ? Clean frequently-touched home surfaces often with disinfectant. This includes desk surfaces, printers, phones, kitchen counters, tables, fridge door handle, bathroom surfaces, and any soiled surface. Closely follow disinfectant label instructions. Go to the CDC?s detailed cleaning website at www.[place].gov/coronavirus/2019-ncov/prepare/cleaning-disinfection.html. ? Check your home supplies. Consider keeping a 2-week supply of medicines, food, and other needed household items. ? Make a plan for childcare, work, and ways to stay in touch with others. Know who will help you ifyou get sick. ? Don't be around people who are sick. ? There is no evidence right now that animals spread SARS-CoV-2. But it's always a good idea to wash your hands after touching any animals. Don't touch animals that may be sick. ? Don?t share eating or drinking utensils with sick people. If you leave home ? Stay at least 6 feet away from all people. ? When possible, don't touch high-touch public surfaces such as doorknobs and handles, cabinet handles, and light switches. If you touch these surfaces, try to clean them first with a disinfecting wipe. Or touch them using a tissue or paper towel. ? Use an alcohol-based hand managing member often. Make sure it has at least 60% alcohol. ? Don't touch your eyes, nose, or mouth unless you have clean hands. ? If you need to cough or sneeze, do it into a tissue. Then throw the tissue into the trash. If youdon't have tissues, cough or sneeze into the bend of your elbow. ? Avoid public gatherings. ? The CDC advises wearing a cloth face mask in public. During a public health emergency, medical face masks may be reserved for healthcare workers. You may need to make a cloth face mask of your own.You can do this using a bandana, T- shirt, or other cloth. The CDC has instructions on how to make amask. If you are at a work site ? Stay at least 6 feet away from all people. ? Don't shake hands with anyone. ? Don?t have in-person meetings. Meet over phone or video. ? Wash your hands often. Use soap and clean, running water for at least 20 seconds. ? If you don't have access to soap and water, use an alcohol-based hand managing member often. Make sure it has at least 60% alcohol. ? Don't touch your eyes, nose, or mouth unless you have clean hands. ? The CDC advises wearing a cloth face mask in public. During a public health emergency, medical face masks may be reserved for healthcare workers. You may need to make a cloth face mask of your own.You can do this using a bandana, T- shirt, or other cloth. The CDC has instructions on how to make amask. ? When possible, don't touch high-touch public surfaces such as doorknobs and handles, cabinet handles, and light switches. If you touch these surfaces, clean them first with a disinfecting wipe. Or touch them using a tissue or paper towel. ? Use office maurilio one person at a time. ? Consider not having office coffee or tea, or group foods. ? Don?t have meals in groups. ? Clean work surfaces (more content not included)...[facility]09-08-2021 NotePatient Education Materials Name: Polina Hagan Current Date: 04/22/2021 15:41:45 [place] : 2000 The following sheet(s) are the Patient Education Leaflets for Polina Hagan Ambulatory Viral Upper Respiratory Illness (Adult) You have a viral upper respiratory illness (URI), which is another term for the common cold. This illness is contagious during the first few days. It is spread through the air by coughing and sneezing. It may also be spread by direct contact (touching the sick person and then touching your own eyes, nose, or mouth). Frequent handwashing will decrease risk of spread. Most viral illnesses go away within 7 to 10 days with rest and simple home remedies. Sometimes the illness may last for several weeks. Antibiotics will not kill a virus, and they are generally not prescribed for this condition. Home care ?If symptoms are severe, rest at home for the first 2 to 3 days. When you resume activity, don't let yourself get too tired. ?Don't smoke. If you need help stopping, talk with your healthcare provider. ?Avoid being exposed to cigarette smoke (yours or others?). ?You may use acetaminophen or ibuprofen to control pain and fever, unless another medicine was prescribed.?If you have chronic liver or kidney disease, have ever had a stomach ulcer or gastrointestinal bleeding, or are taking blood- thinning medicines, talk with your healthcare provider before usingthese medicines. Aspirin should never be given to anyone under 18 years of age who is ill with a viral infection or fever. It may cause severe liver or brain damage. ?Your appetite may be poor, so a light diet is fine. Stay well hydrated by drinking 6 to 8 glasses of fluids per day (water, soft drinks, juices, tea, or soup). Extra fluids will help loosen secretions in the nose and lungs. ?Irdo-lap-yohakut cold medicines will not shorten the length of time you?re sick, but they may be helpful for the following symptoms: cough, sore throat, and nasal and sinus congestion. If you take prescription medicines, ask your healthcare provider or pharmacist which bdcq-qnv-wjpdlky medicines are safe to use. (Note: Don't use decongestants if you have high blood pressure.) Follow-up care Follow up with your healthcare provider, or as advised. When to seek medical advice Call your healthcare provider right away if any of these occur: ?Cough with lots of colored sputum (mucus) ?Severe headache; face, neck, or ear pain ?Difficulty?swallowing?due to throat pain ?Fever of 100.4?F (38?C) or higher, or as directed by your healthcare provider Call 911 Call 911 if any of these occur: ?Chest pain, shortness of breath, wheezing, or difficulty breathing ?Coughing up blood ?Very severe pain with swallowing, especially if it goes along with a muffled voice ? [id number] [employer]. [address] [place] [address]. All rights reserved. This information is not intended as a substitute for professional medical care. Always follow your healthcare professional's instructions. Infectious Disease Coronavirus Disease 2019 (COVID-19): Caring for Yourself or Others If you or a household member have symptoms of COVID-19, follow the guidelines below for preventing spread of the virus, and managing symptoms. If you think you have COVID-19 symptoms ? Stay home. Call your healthcare provider and tell them you have symptoms of COVID-19. Do this before going to any hospital or clinic. Follow your provider's instructions. You may be advised to isolate yourself at home. This is called self-isolation. ? Don?t panic. Keep in mind that other illnesses can cause similar symptoms. ? Stay away from work, school, and public places. Limit physical contact with family members. Limitvisitors. Don't kiss anyone or share eating or drinking utensils. Clean surfaces you touch with disinfectant. This is to help prevent the virus from spreading. ? If you need to cough or sneeze, do it into a tissue. Then throw the tissue into the trash. If youdon't have tissues, cough or sneeze into the bend of your elbow. ? Don?t share food or personal items with people in your household. This includes items like eatingand drinking utensils, towels, and bedding. ? Wear a cloth face mask around other people. During a public health emergency, medical face masks may be reserved for healthcare workers. You may need to make a cloth face mask of your own. You can do this using a bandana, T-shirt, or other cloth. The [facility] has instructions on how to make a mask. ? If you need to go to a hospital or clinic, expect that the healthcare staff will wear protective equipment such as masks, gowns, gloves, and eye protection. You may be put in a separate room. This is to prevent the possible virus from spreading. ? Tell the healthcare staff about recent travel. This includes local travel on public transport. Staff may need to find other people you ferrari (more content not included)...[facility] No data available for this section [facility] information available [facility] Work Phone: History general Narrative - Reported* Type Description Date Medical History acne [facility] hdtMEDIA Other History general Narrative - Reported* Type Description Date Medical History acne Surgical History urethra 2020 [facility] hdtMEDIA Other Hospital Discharge instructions No data available for this section [facility] No data available for this section [facility] Summary Purpose Family History No Family History Records FoundNo Family History Records FoundNo Family History Records FoundNo Family History Records Found Advance Directives Advance Directive Response Recorded Date/ Time Advance Directives No January 20 0 2:56pm Advance Directive Response Recorded Date/ Time Advance Directives No January 20 0 1:56pm Additional Source Comments (unrecognized sect ion and content) No Status Records FoundNo Status Records FoundNo Status Records FoundNo Status Records Found INFORMATION SOURCE (unrecogn ized section and content) DATE CREATED AUTHOR 04/17/2018 Maximo monsalve DATE CREATED AUTHOR AUTHOR'S ORGANIZ ATION 02/03/2022 [facility] DATE CREATED AUTHOR AUTHOR'S ORGANIZ ATION 08/23/2023 [facility] DATE CREATED AUTHOR AUTHOR'S ORGANIZ ATION 08/25/2023 [facility] Care Team (unrecognized sect ion and content) Team Status: Inactive Member Role Status Dates Tejal Gomez , INS[employer]ANCE SALES [employer]OCIATE Attending Provider Active Team Status: Inactive Member Role Status Dates Brigette Vizcaino , FILIPEC Attending Provider Active REASON FOR VISIT (unrecogniz ed section and content) COUGH, CONGESTIONPOSS UTIPOS S UTI Goals (unrecognized section and content) Goals may be documented in a n alternate section FOR RECORDS PERTAINING TO PATIENTS WHO ARE OR HAVE BEEN ENROLLED IN A CHEMICAL DEPENDENCY/SUBSTANCEABUSE PROGRAM, SOME INFORMATION MAY BE OMITTED. This clinical summary was aggregated from multiple sources. Caution should be exercised in using it in the provision of clinical care. This summary normalizes information from multiple sources, and as a consequence, information in this document may materially change the coding, format and clinical context of patient data. In addition, data may be omitted in some cases. CLINICAL DECISIONS SHOULD BE BASED ON THE PRIMARY CLINICAL RECORDS. [facility]. provides no warranty or guarantee of the accuracy or completeness of information in this document.
--- NOTE | 2024-08-08 02:25 | ED_ITS ---
HPI HPI - General Adult General Chief complaint: Fever Stated complaint: URI SYMPTOMS, FEVER Time Seen by Provider: 08/08/24 02:17 Source: patient Mode of arrival: walk-in Limitations: no limitations History of Present Illness HPI narrative: Patient presents to ED complaining of not feeling well. He said he has had a fever on and off since Tuesday night. He said Tuesday night he started with a mild headache and then Tuesday he went to work and realized he did not feel good. He has had a fever up to 103 but it improves with Tylenol. Patient was here yesterday swabbed for flu and COVID which were negative. Chest x-ray was also clear. He does report that he has a very mildly productive cough of phlegm. Still has a mild headache. No sore throat no sinus pressure but does report n snow congestion. No ear pain. No nausea vomiting diarrhea no abdominal pain. Patient's alert and oriented resting comfortably in the bed dressed. Temperature 99.9 here in ED. Related Data Home Medications ?Medication ?Instructions ?Recorded ?Confirmed No Known Home Medications 08/08/24 08/08/24 Allergies Allergy/AdvReac Type Severity Reaction Status Date / Time No Known Drug Allergies Allergy Verified 08/08/24 02:15 Opioid HPI Opioid Management Most Recent Opioid Data: No Data to Display Review of Systems ROS Status of ROS 10 or more systems reviewed and unremark able except as noted in history and below PFSH PFSH Social History Little interest or pleasure in doing things: not at all Feeling down, depressed, or hopeless: not at all Exam Narrative Exam Narrative: Time Seen: [] Vital Signs: [Per nurse's notes.] General: [Alert] low-grade fever Skin: [Warm, dry, no rash.] Head: [Normocephalic, atraumatic.] Neck: [Supple, trachea midline.] Eye: [Pupils are equal, round and reactive to light, extraocular movements are intact, normal conjunctiva.] Ears, nose, mouth and throat: oral mucosa moist. Posterior pharynx erythematous Cardiovascular: [Regular rate and rhythm, no murmur.] Respiratory: [Lungs are clear to auscultation, respirations are non-labored, breath sounds are equal.] No wheezing no rhonchi Chest wall: [No tenderness, no deformity.] Gastrointestinal: [Soft, nontender, non distended, normal bowel sounds.] MSK: 5 out of 5 muscle strength x 4 extremities no calf pain or edema Lymphatics: [No lymphadenopathy.] Psychiatric: [Cooperative, appropriate mood & affect.] Neurological: [Alert and oriented to person, place, time, and situation, no focal neurological deficit observed.] Constitutional Vital Signs, click to edit/add: Last Vital Signs Temp 99.9 F 08/08/24 02:12 Pulse 87 08/08/24 02:12 Resp 16 08/08/24 02:12 BP 159/88 H 08/08/24 02:12 Pulse Ox 99 08/08/24 02:12 O2 Del Method Room Air 08/08/24 02:12 Course Vital Signs Vital signs: Vital Signs Temperature 99.9 F 08/08/24 02:12 Pulse Rate 87 08/08/24 02:12 Respiratory Rate 16 08/08/24 02:12 Blood Pressure 159/88 H 08/08/24 02:12 Pulse Oximetry 99 08/08/24 02:12 Oxygen Delivery Method Room Air 08/08/24 02:12 Temperature 99.9 F 08/08/24 02:12 Pulse Rate 87 08/08/24 02:12 Respiratory Rate 16 08/08/24 02:12 Blood Pressure 159/88 H 08/08/24 02:12 Pulse Oximetry 99 08/08/24 02:12 Oxygen Delivery Method Room Air 08/08/24 02:12 Medical Decision Making MDM Narrative Medical decision making narrative: We discussed getting blood work but the patient said he would rather not get blood work if he could help it. I will repeat the flu COVID swabs as sometimes these can be false negatives. I also added on the strep swab due to the red throat. Lungs are clear I do not think he needs a repeat chest x-ray at this time. Abdomen is soft and nondistended no abdominal pain. Patient's flu and COVID are still negative. Strep screen was negative. Patient does not have any specific symptoms other than general viral URI symptoms. I do not think further workup is warranted at this time but I gave patient strict instructions to return if facial pain pain abdominal pain worsening fevers signs of dehydration or anything else that is concerning. At this time continue Tylenol and Motrin for body aches and fever. Follow-up with family doctor. Patient is comfortable with care plan for home Differential Diagnosis Differential Diagnosis: Flu COVID strep viral syndrome Medical Records Medical records reviewed: Yes I reviewed the patient's medical records Lab Data Lab results reviewed: Yes I reviewed the patient's lab results Labs: Lab Results 08/08/24 Range/Units 02:27 Influenza Type A Ag Negative Influenza Type B Ag Negative SARS-CoV-2 Ag (CV2AG) Negative (NEGATIVE) Streptococcus Screen Negative Discharge Plan Discharge Chief Complaint: Fever Clinical Impression: Viral URI Patient Disposition: Home, Self-Care Time of Disposition Decision: 03:01 Condition: Good Mode of Transportation: Private Vehicle Prescriptions / Home Meds: No Action No Known Home Medications Print Language: Luxembourger Instructions: Upper Respiratory Infection (ED) Referrals: Physician,Non-Staff, MD [Primary Care Provider] - 1 week
[2024-08-08 02:50] LABS: Internal Control Within Normal Limits; Strep A Antigen Screen Negative
[2024-08-08 02:55] LABS: Influenza Virus A Antigen Negative; Influenza Virus B Antigen Negative; Internal Control Within Normal Limits; SARS-CoV-2 Ag NEGATIVE (NEGATIVE)
[2024-08-08 07:32] LABS: BOX Test Reference Lab FIRELANDS; BOX Test Sent Out THROAT CX
== END 2024-08-08 03:20 | disposition home or self-care (01) ==
PROVIDERS: Emergency Provider Emergency Medicine
DX: J06.9 Acute upper respiratory infection, unspecified (principal); R50.9 Fever, unspecified
CPT/HCPCS: 36415; 87070; 87081; 87804; 87811; 87880; 99283

== ENCOUNTER 2024-11-05 19:17 | Emergency (ER) | payer OTHER, SELFPAY ==
[2024-11-05] VITALS (17 sets, daily range): BP systolic 134–165; BP diastolic 70–85; PULSE 71–94; TEMP 37; O2SAT 96–100; BMI 28.4
--- OUTSIDE RECORDS SUMMARY | 2024-11-05 19:37 | XMS_ITS | CCD ---
Author Organization [facility] Inform ion Partnership [facility] Care Team Providers Care Beam Doffer Name Role Phone ELIZABETH JAUREGUI Unavailable Unavailable ERI BARTON Unavailable Unavailable ERI BARTON Unavailable Unavailable ERI BARTON Unavailable Unavailable ELIZABETH JAUREGUI Primary Care Physician TAMMY Beth Attending UnavailELIZABETH Rodriguez Consulting Unavailable ELIZABETH JAUREGUI Primary Care Unavailable ELIZABETH JAUREGUI Consulting Unavailable ELIZABETH JAUREGUI Primary Care Unavailable Robbie Shultz Attending Unavailable Joana Mendes Unavailable MARY Gomez Attending Provider [phone] Brigette Vizcaino Unavailable Jakob Velasquez Attending Unavailable Jakob Velasquez Attending Unavailable JULIUS Vizcaino Attending Provider NON STAFF Attending Unavailable Jakob Velasquez Primary Care Unavailable NON STAFF Admitting Unavailable Brigette Vizcaino Admitting Unavailable Brigette Vizcaino Attending Unavailable Allergies Allergy Classification Reported Allergen(s) Allergy Type Date of Onset Reaction(s) Facility (1 source) No Known Medication Allergies; Translations: [No Known Medication Allergies] Propensity to adverse reactions (disorder) [facility] Repository Medications Current Medications Medication Drug Class(es) Dates Sig (Normalized) Sig (Original) [id number] 200 actuat albuterol 0.09 mg/actuat metered dose [...] day(s), # 10 cap(s), Refills(s) 0, Pharmacy: [facility]/pharmacy #[id number], 185.3, cm, 11/12/21 15:39:00 EDT, Height/Length Dosing, 119.6, kg, 11/12/21 15:39:00 EDT, Weight Dosing Start Date: 11/19/21 Stop Date: 11/24/21 Status: Ordered dextromethorphan hydrobromide 1.5 mg/ml / pyrilamine maleate 1.5 mg/ml oral solution (1 source) Uncompetitive Y-opcsdb-C-asparta te Receptor Antagonist, Sigma-1 Agonist Start: 3 take 10 mL by mouth every eight hours [place] DM 7.5-7.5 MG/5ML 10 mL Orally every 8 hours for 5 days December, Active hyoscyamine sulfate 0.125 mg oral tablet (2 sources) Start: 2 take 1 tablet by mouth four times daily as needed for muscle spasms Levsin 0.125 mg SL Tab 0.125 mg = 1 tab(s), Oral, QID, PRN spasm, # 20 tab(s), Refills(s) 0, Pharmacy: [facility]/pharmacy #5813, 185.3, cm, 11/12/21 15:39:00 EDT, Height/Length [...] Translations: [Urge incontinence of urine] 09-29-2021 Chronic Other diseases of bladder and urethra (2 sources) Urethral stricture 10-26-2021 Episodic Other lower respiratory disease (3 sources) Cough; Translations: [COUGH] Onset: 04-12-2018 Episodic Substance-related disorders (2 sources) Smoker 11-12-2021 Chronic Comment on above: Added secondary to d ocumentation in Social History. Past or Other Problems Problem Classification Problem Date Documented Da te Episodic/Chronic Genitourinary symptoms and ill-defined conditions (7 sources) Delay when starting to pass urine; Translations: [Dysuria] Onset: 08-19-2023 09-29-2021 Episodic Unclassified (1 source) Exposure to 2019 novel coronavirus; Translations: [Contact with and (suspected) exposure to COVID19] Results Test Name Value Interpretation Reference Range Facility Strep A Culture Onlyon 08-08 Strep A Culture Only No Group A Beta Streptococcus Isolated 2 Days PERFORMED BY: [place] [address] PATHOLOGIST MOLDER BENCH BETSY CALLES M.D. Normal [facility] Comment on above: Performed By: #### C USTA #### [address] Consultation Noteon 08-22-19 24 Consultation Note [id number]#[id number] 0TIFF Normal [facility] Chlamydia/GC/Trich NAAon Chlamydia Trachomotis, LUCERO Negative Normal Negative [facility] Comment on above: Order Comment: Reaso n for Exam Dysuria SOURCE OF SPECIMEN: URINE APTIMA Performed By: #### G CCHLAMTRI #### [facility] , Neisseria Gonorrhoeae, LUCERO Negative Normal Negative [facility] Comment on above: Order Comment: Reaso n for Exam Dysuria SOURCE OF SPECIMEN: URINE APTIMA Performed By: #### G CCHLAMTRI #### [facility] , Trichomonas LUCERO Negative Normal Negative [facility] Comment on above: Order Comment: Reaso n for Exam Dysuria SOURCE OF SPECIMEN: URINE APTIMA Result Comment: Perf ormed at: =G - [facility] [address] [place] [id number] [employer] Hand: Karina Bradford MD, Phone: [phone] PERFORMED BY: [place] [address] [place] [address] PATHOLOGIST MOLDER BENCH KYRA FERRARO M.D. Performed By: #### G CCHLAMTRI #### [facility] , Chlamydia/GC/Tric h LUCERO Negative Negative [facility] Other Urinalysis - AUTOMATEDon Appearance (U) clear [employer] Other Bilirubin Ql (U) Negative [employer] Other Color (U) dark yellow [facility] Other Glucose Ql (U) Negative [employer] Other Hemoglobin Ql (U) trace-intact [facility] Other Ketones Ql (U) Negative [employer] Other Leukocyte esterase Test strip Ql (U) Negative [facility] Other Nitrite Ql (U) Negative [employer] Other pH (U) 5.5 [pH] [facility] Other Protein Ql (U) Negative [employer] Other Specific gravity (U) [Rel density] >=1.030 [facility] Other Urobilinogen (U) [Mass/Vol] 0.2 mg/dL [facility] Other Urinalysis - AUTOMATED [facility] Other Ambulatory Visit Summaryon 0 05-04-2023 Ambulatory Visit Summary POLINA HAGAN :2000 Visit Date:05/04/2023 Ambulatory Visit Instructions Your Diagnosis Acute URI Vaping-related disorder BMI 31.0-31.9,adult Class 1 obesity due to excess calories in adult Your Care Team Attending Physician - Jakob Velasquez MD Primary Care Physician - MILTON BRAY, ELIZABETH Kurtz This Is Your Medications List hyoscyamine (Levsin [...] Follow-Up Appointments Tuesday 4:40 PM EST With: Ron BRAY, Jakob Feliz Where: [facility] Family Medicine Office/Clini c Noteon 05-04-2023 Family Medicine [...] B pediatric vaccine 2000 Recorded Normal [facility] Comment on above: Result Comment: Elec tronically Signed By: Ron BRAY, Jakob Aldridge.br\Date and Time Signed: 05/04/23 17:14 EDT .UA Microscp Aon 01-14-2022 UA Mucus Present Abnormal Absent [facility] Comment on above: Performed By: #### C D:[id number] ####[facility] [place] [address] UA RBC Quant 27 /HPF High 0-5 [facility] Comment on above: Performed By: #### C D:[id number] ####[address] [place] [address] UA WBC Quant 2 /HPF Normal 0-5 [facility] Comment on above: Performed By: #### C D:[id number] ####[address] [address] .eGFRon 01-14-2022 GFR/1.73 sq M.predicted MDRD (S/P/Bld) [Vol rate/Area] mL/min/{1.73_m2} Normal >=60 [facility] Comment on above: Result Comment: [facility] Laboratories have implemented the eGFR calculation approach [...] = years Performed By: #### E GFR ####[address] [address] Basic Metabolic Profileon Anion gap [Moles/Vol] 15 mmol/L Normal 7-17 [facility] Comment on above: Performed By: #### C [id number] ####[address] [address] Calcium [Mass/Vol] 9.3 mg/dL Normal 8.5-10.3 [facility] Comment on above: Performed By: #### C D:[id number] ####[address] [address] Chloride [Moles/Vol] 99 mmol/L Normal 98-110 [facility] Comment on above: Performed By: #### C D:[id number] ####[address] [address] CO2 [Moles/Vol] 26 mmol/L Normal 22-32 [facility] Comment on above: Performed By: #### C D:[id number] ####[address] [address] Creatinine [Mass/Vol] 1.06 mg/dL Normal 0.61-1.24 [facility] Comment on above: Performed By: #### C D:[id number] ####[address] [address] Glucose [Mass/Vol] 111 mg/dL High 70-99 [facility] Comment on above: Performed By: #### C D:[id number] ####[address] [address] Potassium [Moles/Vol] 3.9 mmol/L Normal 3.4-4.8 [facility] Comment on above: Performed By: #### C D:[id number] ####[address] [address] Sodium [Moles/Vol] 136 mmol/L Normal 133-142 [facility] Comment on above: Performed By: #### C D:[id number] ####[address] [address] Urea nitrogen [Mass/Vol] 16 mg/dL Normal 8-26 [facility] Comment on above: Performed By: #### C D:[id number] ####[address] [address] Urea nitrogen/Creatini ne [Mass ratio] 15.1 mg/mg Normal 10.0-20.0 [facility] Comment on above: Performed By: #### C D:[id number] ####[address] [address] CBC w/ Diffon 01-14-2022 Erythrocyte distribution width (RBC) [Ratio] 14.7 % Normal 11.6-14.8 [facility] Comment on above: Performed By: #### C BC ####[address] [address] Hematocrit (Bld) [Volume fraction] 46.7 % Normal 41.0-53.0 [facility] Comment on above: Performed By: #### C BC ####[address] [address] Hemoglobin (Bld) [Mass/Vol] 15.7 g/dL Normal 13.5-17.5 [facility] Comment on above: Performed By: #### C BC ####[address] [address] MCH (RBC) [Entitic mass] 26.2 pg Low 27.0-35.0 [facility] Comment on above: Performed By: #### C BC ####[address] [address] MCHC 33.5 % Normal 31.0-37.0 [facility] Comment on above: Performed By: #### C BC ####[address] [address] MCV (RBC) [Entitic vol] 78.2 fL Low 80.0-100.0 [facility] Comment on above: Performed By: #### C BC ####[address] [address] Platelet 267 x10*3/mcL Normal 150-350 [facility] Comment on above: Performed By: #### C BC ####[address] [address] Platelet mean volume (Bld) [Entitic vol] 7.1 fL Normal 6.7-10.6 [facility] Comment on above: Performed By: #### C BC ####[address] [address] RBC 5.97 x10*6/mcL High 4.30-5.80 [facility] Comment on above: Performed By: #### C BC ####[address] [place] [address] WBC 12.3 x10*3/mcL High 4.5-11.0 [facility] Comment on above: Performed By: #### C ####[address] [place] [address] CT Abd Pelvis w/o IV Cont St [...] cystitis. Please correlate clinically. Radiation Dose Estimate: CTDI(mGy):0.030251 / / / kVp:120.664358 / mAs:0.152412 / / / DLP(mGy-cm):4.303471So dy Part: Abdomen CTDI(mGy):40.321875 / / / kVp:140.876203 / mAs:155.257404 / / / DLP(mGy-cm):1966.42913 9Body Part: Abdomen Final Dictated by: Shanda Borges MD Dictated DT/TM: 01.14.2022 9:11 am Signed by: Shanda Borges MD Signed (Electronic Signature): 01.14.2022 9:25 am (If Report Is Signed, Electronically Signed in Other Vendor System) Normal [facility] Diff Autoon 01-14-2022 Baso Absolute 0.0 x10*3/mcL Normal 0.0-0.2 [facility] Comment on above: Performed By: #### . Automated Diff ####[address] [address] Basophils/100 WBC (Bld) 0.3 % Normal 0.0-1.2 [facility] Comment on above: Performed By: #### . Automated Diff ####[address] [address] Eos Absolute 0.0 x10*3/mcL Normal 0.0-0.4 [facility] Comment on above: Performed By: #### . Automated Diff ####[address] [address] Eosinophils/100 WBC (Bld) 0.3 % Normal 0.0-6.1 [facility] Comment on above: Performed By: #### . Automated Diff ####[address] [address] Lymph Absolute 1.4 x10*3/mcL Normal 1.0-4.8 [facility] Comment on above: Performed By: #### . Automated Diff ####[address] [address] Lymphocytes/100 WBC (Bld) 11.5 % Low 27.2-40.8 [facility] Comment on above: Performed By: #### . Automated Diff ####[address] [address] [place] Absolute 0.8 x10*3/mcL Normal 0.3-1.1 [facility] Comment on above: Performed By: #### . Automated Diff ####[address] [address] Monocytes/100 WBC (Bld) 6.4 % Normal 4.7-13.9 [facility] Comment on above: Performed By: #### . Automated Diff ####[address] [address] Neutro Absolute 10.0 x10*3/mcL High 1.8-7.7 [facility] Comment on above: Performed By: #### . Automated Diff ####[address] [place] [address] Neutro Auto 81.5 % High 47.2-70.8 [facility] Comment on above: Performed By: #### . Automated Diff ####[address] [address] ED Clinical Summaryon 2021 ED Clinical Summary [facility] [address] [id number] ED Clinical Summary Person Information Name: Polina Hagan [facility]ine/[facility] Age: 21 Years : 2000 Sex: Male PCP: Elizabeth Jauregui MD Marital Status: Single Phone: Race: White Ethnicity: Not or Language: Belgian Visit Reason: Flank pain; Flank pain Acuity: 3 Enc Type: Emergency Med Service: Emergency Medicine Arrival: 01/14/2022 08:25:15 Discharge: 01/14/2022 10:26:00 LOS: 000 02:01 Checkin: 01/14/2022 08:25:15 Checkout: 01/14/2022 10:26:00 Dispo Type: Home or Self Care Address: [facility] [place] [address] Provider Notes: Diagnosis: 1:Ureterolithiasis - Left Problems [...] range between ( 27.2 and 40.8 ) [place] Auto: 6.4 % -- Normal range between [...] range between ( 41.0 and 53.0 ) [place] Absolute: 0.8 x10 MCH: 26.2 pg -- [...] This Visit Final Med List: New Medications [id number], [address], [place] [id number], [phone] ciprofloxacin (Cipro 500 mg oral tablet) 1 Tabs Oral (given by mouth) every 12 hours for 7 Days. Refills: 0. Last Dose: ___ ondansetron (Zofran ODT 4 mg oral tablet, disintegrating) 1 Tabs Oral (given by mouth) 3 times a day as needed nausea/vomiting. Refills: 0. Last Dose: ___ Printed Prescriptions hydrocodone-acetaminop hen (Clark 5 mg-325 mg oral tablet) 1 Tabs [...] 0. L (more content not included)... Normal [facility] ED Note-Physicianon 01-15-20 ED Note-Physician Chief Complaint [...] quadrants] : [No costovertebral angle tenderness] Skin: [[place], warm, dry, no injury, no rashes] Neuro: [...] UVJ stone. Will d/c home w/Rx for Clark, Cipro and Zofran and have him follow [...] tabs, 0 Refill(s), 01/21/22 10:17:00 EDT, Pharmacy: [facility]/pharmacy #5813 ondansetron, 1 tabs, Oral, TID, PRN, # 12 tabs, 0 Refill(s), Pharmacy: [facility]/pharmacy #5813 Discharge Patient Discharge Special Instructions Discharge [...] 12.3 Hi (more content not included)... Normal [facility] Lipaseon 01-14-2022 Lipase Lvl 27 IU/L Normal 22-51 [facility] Comment on above: Performed By: #### L IP ####[place] [address] UA w Culture if Indon 2021 Color (U) Light-Yellow Normal [facility] Comment on above: Performed By: #### U CI ####[place] [address] Ketones Ql (U) Negative Normal Negative [facility] Comment on above: Performed By: #### U CI ####[place] [address] UA Blood 2+ Abnormal Negative [facility] Comment on above: Performed By: #### U CI ####[address] [place] [address] UA Clarity Clear Normal [facility] Comment on above: Performed By: #### U CI ####[address] [place] [address] UA Glucose Normal Normal Negative [facility] Comment on above: Performed By: #### U CI ####[address] [place] [address] UA Leukocyte Esterase Negative Normal Negative [facility] Comment on above: Performed By: #### U CI ####[address] [address] UA Nitrite Negative Normal Negative [facility] Comment on above: Performed By: #### U CI ####[address] [address] UA pH 5.5 Normal 4.5 - 7.8 [facility] Comment on above: Performed By: #### U CI ####[address] [address] UA Protein 20 mg/dL Normal Negative [facility] Comment on above: Performed By: #### U CI ####[address] [address] UA Source Clean Catch Normal [facility] Comment on above: Performed By: #### U CI ####[address] [address] UA Spec Grav 1.020 Normal 1.003-1.035 [facility] Comment on above: Performed By: #### U CI ####[address] [address] UA Urobilinogen Normal Normal 0.2 - 1.0 [facility] Comment on above: Performed By: #### U CI ####[address] [address] Urobilinogen (U) [Mass/Vol] Negative Normal Negative [facility] Comment on above: Performed By: #### U CI ####[address] [address] .UA Microscp Aon 12-03-2021 UA Mucus Present Abnormal Absent [facility] Comment on above: Performed By: #### C D:[id number] ####[address] [address] UA RBC Quant 577 /HPF High 0-5 [facility] Comment on above: Performed By: #### C D:[id number] ####[address] [address] UA Squepi Cells Quant <1 Normal 0-29 [facility] Comment on above: Performed By: #### C D:[id number] ####[address] [place] [address] UA WBC Quant 1 /HPF Normal 0-5 [facility] Comment on above: Performed By: #### C D:[id number] ####[address] [address] .eGFRon 12-03-2021 GFR/1.73 sq M.predicted MDRD (S/P/Bld) [Vol rate/Area] mL/min/{1.73_m2} Normal >=60 [facility] Comment on above: Result Comment: [facility] Laboratories have implemented the eGFR calculation approach [...] = years Performed By: #### E GFR ####[address] [address] Basic Metabolic Profileon Anion gap [Moles/Vol] 19 mmol/L High 7-17 [facility] Comment on above: Performed By: #### C D:[id number] ####[address] [address] Calcium [Mass/Vol] 10.1 mg/dL Normal 8.5-10.3 [facility] Comment on above: Performed By: #### C D:[id number] ####[address] [address] Chloride [Moles/Vol] 97 mmol/L Low 98-110 [facility] Comment on above: Performed By: #### C D:[id number] ####[address] [address] CO2 [Moles/Vol] 25 mmol/L Normal 22-32 [facility] Comment on above: Performed By: #### C D:[id number] ####[address] [address] Creatinine [Mass/Vol] 1.39 mg/dL High 0.61-1.24 [facility] Comment on above: Performed By: #### C D:[id number] ####[address] [address] Glucose [Mass/Vol] 136 mg/dL High 70-99 [facility] Comment on above: Performed By: #### C D:[id number] ####[address] [address] Potassium [Moles/Vol] 3.6 mmol/L Normal 3.4-4.8 [facility] Comment on above: Performed By: #### C D:[id number] ####[address] [address] Sodium [Moles/Vol] 137 mmol/L Normal 133-142 [facility] Comment on above: Performed By: #### C D:[id number] ####[address] [address] Urea nitrogen [Mass/Vol] 20 mg/dL Normal 8-26 [facility] Comment on above: Performed By: #### C D:[id number] ####[address] [address] Urea nitrogen/Creatini ne [Mass ratio] 14.4 mg/mg Normal 10.0-20.0 [facility] Comment on above: Performed By: #### C D:[id number] ####[address] [address] CBC w/ Diffon 12-03-2021 Erythrocyte distribution width (RBC) [Ratio] 14.5 % Normal 11.6-14.8 [facility] Comment on above: Performed By: #### C BC ####[address] [address] Hematocrit (Bld) [Volume fraction] 47.6 % Normal 41.0-53.0 [facility] Comment on above: Performed By: #### C BC ####[address] [address] Hemoglobin (Bld) [Mass/Vol] 15.8 g/dL Normal 13.5-17.5 [facility] Comment on above: Performed By: #### C BC ####[address] [address] MCH (RBC) [Entitic mass] 25.4 pg Low 27.0-35.0 [facility] Comment on above: Performed By: #### C BC ####[address] [address] MCHC 33.2 % Normal 31.0-37.0 [facility] Comment on above: Performed By: #### C BC ####[address] [address] MCV (RBC) [Entitic vol] 76.6 fL Low 80.0-100.0 [facility] Comment on above: Performed By: #### C BC ####[address] [address] Platelet 309 x10*3/mcL Normal 150-350 [facility] Comment on above: Performed By: #### C BC ####[address] [address] Platelet mean volume (Bld) [Entitic vol] 7.2 fL Normal 6.7-10.6 [facility] Comment on above: Performed By: #### C BC ####[address] [address] RBC 6.21 x10*6/mcL High 4.30-5.80 [facility] Comment on above: Performed By: #### C BC ####[address] [address] WBC 15.1 x10*3/mcL High 4.5-11.0 [facility] Comment on above: Performed By: #### C BC ####[address] [address] [address] Abdomen Pelvis w/ IV Cont raston [...] compatible with obstructive uropathy. Radiation Dose Estimate: CTDI(mGy):0.671820 / / / kVp:120.711571 / mAs:0.278642 / / / DLP(mGy-cm):4.467517Yq dy Part: Abdomen CTDI(mGy):30.374968 / / / kVp:140.657909 / mAs:155.566310 / / / DLP(mGy-cm):1611.51952 5Body Part: Abdomen Final Dictated by: Shanda Borges MD Dictated DT/TM: 12.03.2021 3:25 pm Signed by: Shanda Borges MD Signed (Electronic Signature): 12.03.2021 3:38 pm (If Report Is Signed, Electronically Signed in Other Vendor System) Normal [facility] Diff Autoon 12-03-2021 Baso Absolute 0.1 x10*3/mcL Normal 0.0-0.2 [facility] Comment on above: Performed By: #### . Automated Diff ####[address] [address] Basophils/100 WBC (Bld) 0.5 % Normal 0.0-1.2 [facility] Comment on above: Performed By: #### . Automated Diff ####[address] [address] Eos Absolute 0.0 x10*3/mcL Normal 0.0-0.4 [facility] Comment on above: Performed By: #### . Automated Diff ####[address] [address] Eosinophils/100 WBC (Bld) 0.1 % Normal 0.0-6.1 [facility] Comment on above: Performed By: #### . Automated Diff ####[address] [address] Lymph Absolute 1.0 x10*3/mcL Normal 1.0-4.8 [facility] Comment on above: Performed By: #### . Automated Diff ####[address] [address] Lymphocytes/100 WBC (Bld) 6.3 % Low 27.2-40.8 [facility] Comment on above: Performed By: #### . Automated Diff ####[address] [address] [place] Absolute 0.6 x10*3/mcL Normal 0.3-1.1 [facility] Comment on above: Performed By: #### . Automated Diff ####[address] [address] Monocytes/100 WBC (Bld) 3.9 % Low 4.7-13.9 [facility] Comment on above: Performed By: #### . Automated Diff ####[address] [address] Neutro Absolute 13.5 x10*3/mcL High 1.8-7.7 [facility] Comment on above: Performed By: #### . Automated Diff ####[address] [address] Neutro Auto 89.2 % High 47.2-70.8 [facility] Comment on above: Performed By: #### . Automated Diff ####[address] [address] ED Clinical Summaryon 2021 ED Clinical Summary [address] [id number] ED Clinical Summary Person Information Name: Polina Hagan [facility]ine/[facility] Age: 21 Years : 2000 Sex: Male PCP: Elizabeth Jauregui MD Marital Status: Single Phone: Race: White Ethnicity: Not or Language: Belgian Visit Reason: Abdominal pain; Abdominal pain Acuity: 3 Enc Type: Emergency Med Service: Emergency Medicine Arrival: 12/03/2021 12:39:47 Discharge: 12/03/2021 17:48:00 LOS: 000 05:09 Checkin: 12/03/2021 12:39:47 Checkout: 12/03/2021 17:48:00 Dispo Type: Home or Self Care Address: [facility] [address] Provider Notes: History of Present Illness This [...] a regular bowel movement subtype.? Patient went to?jogw-evy-efcmgng laxatives with minimal?results and?no relief in pain. [...] range between ( 27.2 and 40.8 ) Tyler Auto: 3.9 % -- Normal range between [...] range between ( 41.0 and 53.0 ) Tyler Absolute: 0.6 x10 MCH: 25.4 pg -- [...] and 1. (more content not included)... Normal [facility] ED Note-Nursingon 12-03-2021 ED Note-Nursing d/c after fluids complete. Electronically signed by Wale Moore 12/03/21 16:16 EDT Normal [facility] ED Note-Physicianon 12-04-19 ED Note-Physician Chief Complaint [...] regular bowel movement subtype. Patient went to trnr-ckv-bprhasn laxatives with minimal results and no relief [...] tabs, 0 Refill(s), 12/13/21 16:02:00 EDT, Pharmacy: [facility]/pharm[facility] #5813 hydrocodone-acetaminop hen, 1 tabs, Oral, q6hr, PRN, X 3 days, # 12 tabs, 0 Refill(s), 12/06/21 16:02:00 EDT, Pharmacy: [facility] #5813 ibuprofen, 1 tabs, Oral, q8hr, X 10 days, # 30 tabs, 0 Refill(s), 12/13/21 16:02:00 EDT, Pharmacy: [facility] #5813 tamsulosin, 1 caps, Oral, Daily, # 30 caps, 0 Refill(s), Pharmacy: [facility]/pharmacy #5813 Discharge Patient 2. Ureteral colic Ordered: ciprofloxacin, 1 tabs, Oral, q12hr, X 10 days, # 20 tabs, 0 Refill(s), 12/13/21 16:02:00 EDT, Pharmacy: [facility]/pharm[facility] #5813 hydrocodone-acetaminop hen, 1 tabs, Oral, q6hr, PRN, X 3 days, # 12 tabs, 0 Refill(s), 12/06/21 16:02:00 EDT, Pharmacy: [facility] #5813 ibuprofen, 1 tabs, Oral, q8hr, X 10 days, # 30 tabs, 0 Refill(s), 12/13/21 16:02:00 EDT, Pharmacy: [facility]5813 tamsulosin, 1 caps, Oral, Daily, # 30 caps, 0 Refill(s), Pharmacy: [facility]/pharmacy #5813 Discharge Patient Orders: ketorolac, 15 mg, IV Push, Injection, q6hr, First Dose: 12/03/21 16:00:00 EDT, Dispense From Location: [facility], 12/03/21 16:00:00 EDT ondansetron, 1 tabs, Oral, q8hr, PRN, X 3 days, # 9 tabs, 0 Refill(s), 12/06/21 16:06:00 EDT, Pharmacy: [facility]/pharmacy #[id number] Post Void Residual Refresh vitals and sections [...] 1 patches, Topical, Daily, PRN, Not taking Clark 5 mg-325 mg oral tablet, 1 tabs, [...] High Lymph Auto 12/03/21 12:53 6.3 Low Tyler Auto 12/03/21 12:53 3.9 Low Eos Auto 12/03/21 12:53 (more content not included)... Normal [facility] Hep Func Panelon 12-03-2021 Albumin [Mass/Vol] 4.2 g/dL Normal 3.2-4.9 [facility] Comment on above: Performed By: #### L IVER ####[address] [address] Alk Phos 61 IU/L Normal 32-91 [facility] Comment on above: Performed By: #### L IVER ####[address] [address] ALT [Catalytic activity/Vol] 27 U/L Normal 17-63 [facility] Comment on above: Performed By: #### L IVER ####[address] [address] AST [Catalytic activity/Vol] 36 U/L Normal 15-41 [facility] Comment on above: Performed By: #### L IVER ####[address] [address] Bili Direct 0.1 mg/dL Normal 0.1-0.5 [facility] Comment on above: Performed By: #### L IVER ####[address] [address] Bili Indirect 1.2 mg/dL High 0.0-1.0 [facility] Comment on above: Performed By: #### L MICAELA ####[address] [address] Bili Total 1.3 mg/dL High 0.3-1.2 [facility] Comment on above: Performed By: #### L MICAELA ####[address] [address] Protein [Mass/Vol] 8.7 g/dL High 6.5-8.1 [facility] Comment on above: Performed By: #### L MICAELA ####[address] [address] UA w Culture if Indon 2021 Color (U) Yellow Normal [facility] Comment on above: Performed By: #### U CI ####[address] [address] Ketones Ql (U) 60 mg/dL Abnormal Negative [facility] Comment on above: Performed By: #### U CI ####[address] [address] UA Blood 3+ Abnormal Negative [facility] Comment on above: Performed By: #### U CI ####[address] [address] UA Clarity Clear Normal [facility] Comment on above: Performed By: #### U CI ####[address] [address] UA Glucose Normal Normal Negative [facility] Comment on above: Performed By: #### U CI ####[address] [address] UA Leukocyte Esterase Negative Normal Negative [facility] Comment on above: Performed By: #### U CI ####[address] [address] UA Nitrite Negative Normal Negative [facility] Comment on above: Performed By: #### U CI ####[place] [address] UA pH 6.0 Normal 4.5 - 7.8 [facility] Comment on above: Performed By: #### U CI ####[place] [address] UA Protein 50 mg/dL Abnormal Negative [facility] Comment on above: Performed By: #### U CI ####[place] [address] UA Source Clean Catch Normal [facility] Comment on above: Performed By: #### U CI ####[place] [address] UA Spec Grav 1.015 Normal 1.003-1.035 [facility] Comment on above: Performed By: #### U CI ####[place] [address] UA Urobilinogen Normal Normal 0.2 - 1.0 [facility] Comment on above: Performed By: #### U CI ####[place] [address] Urobilinogen (U) [Mass/Vol] Negative Normal Negative [facility] Comment on above: Performed By: #### U CI ####[place] [address] CoV-2 PCRon 05-21-2021 Employed in healthcare? Unknown Normal [facility] Comment on above: Order Comment: PCR r equired. Performed By: #### C D:[id number] ####[place] [address] Group care resident? No Normal [facility] Comment on above: Order Comment: PCR r equired. Performed By: #### C D:[id number] ####[place] [address] In ICU? No Normal [facility] Comment on above: Order Comment: PCR r equired. Performed By: #### C D:[id number] ####[place] [address] [address] [place] [address] status? Not Applicable Normal [facility] Comment on above: Order Comment: PCR r equired. Performed By: #### C D:[id number] ####[address] [address] [place] [address] SARS-CoV-2 (COVID-19) RNA LUCERO+probe Ql (Unsp spec) Negative Normal Negative [facility] Comment on above: Order Comment: PCR r equired. Result Comment: The TOREY? SARS-CoV-2 Assay is a qualitative, multiplex, real-time PCR-based in vitro diagnostic test intended for the detection of SARS-CoV-2 nucleic acid in nasopharyngeal swab (ERP PROJECT MANAGER) specimens from individuals suspected of having COVID-19. The TOREY? SARS-CoV-2 Assay detects SARS-CoV-2 viral RNA from nasopharyngeal swab (ERP PROJECT MANAGER) samples. SARS-CoV-2 RNA is generally detectable in ERP PROJECT MANAGER specimens during the acute phase of infection. Positive results are indicative of the presence of SARS-CoV-2 RNA; clinical correlation with patient history and other diagnostic information is necessary to determine patient infection status. Positive results do not rule out bacterial infection or co-infection with other viruses. The agent detected may not be the definite cause of disease. Laboratories within the [facility] and its territories are required to report all positive results to the appropriate public health authorities. Negative results do not preclude SARS-CoV-2 infection and should not be used as the sole basis for patient management decisions. Negative results must be combined with clinical observations, patient history, and epidemiological information. The TOREY? SARS-CoV-2 Assay is intended for use on [employer] by trained clinical laboratory personnel who are specifically instructed and trained in in vitro diagnostic procedures. This [employer] SARS-CoV-2 Assay has been modified from the professor of criminal justice?s instructions to allow for nasal swab (anterior Nares) collection. An independent bridging study for nasal swab collection was performed by [facility], a [place] laboratory certified to perform high complexity testing [...] sooner. Fact sheet for Health Care Providers: https://www.fda.gov/media/596278/download Fact sheet for Patients: https://www.fda.gov/media/888451/download Performed By: #### C D:[id number] ####[place] [address] SARS-CoV-2 (COVID-19) RNA LUCERO+probe Ql (Unsp spec) No Normal [facility] Comment on above: Order Comment: PCR r equired. Performed By: #### C D:[id number] ####[place] [address] SARS-CoV-2 (COVID-19) RNA LUCERO+probe Ql (Unsp spec) Unknown Normal [facility] Comment on above: Order Comment: PCR r equired. Performed By: #### C D:[id number] ####[place] [address] Symptomatic as defined by CDC? No Normal [facility] Comment on above: Order Comment: PCR r equired. Performed By: #### C D:[id number] ####[place] [address] Urgent Care Office/Clinic No sam 05-20-2021 Urgent [...] just 10 days after your infection. 1. [facility] offers Covid vaccinations. 2. You may go to the website of any of the following grocery store's pharmacies and schedule your vaccine appointment online OR call their pharmacy department to schedule an appointment over the phone: [facility] [employer] Vincenzo Rothman 3. You may [...] discussed with the patient that per the CDC's guidelines he is required to be in [...] qualifying data available (more content not included)... Normal [facility] Agon 04-22-2021 Employed in healthcare? No Normal [facility] Comment on above: Performed By: #### C D:[id number] ####[address] [address] Group care resident? No Normal [facility] Comment on above: Performed By: #### C D:[id number] ####[address] [address] In ICU? No Normal [facility] Comment on above: Performed By: #### C D:[id number] ####[address] [address] status? Not Applicable [facility] Comment on above: Performed By: #### C D:[id number] ####[address] [address] SARS-CoV-2 (COVID-19) RNA LUCERO+probe Ql (Unsp spec) Normal Negative [facility] Comment on above: Result Comment: * Ne [...] Negative ADDITIONAL INFORMATION: Testing performed on the Pirqs 3600 using the SARS-CoV-2 Antigen test. Results are for the identification of SARS-CoV-2 nucleocapsid antigen. The Yap[employer]S SARS-CoV-2 Antigen test can detect both viable and non-viable SARS-CoV-2 material. The [employer] SARS-CoV-2 Antigen test performance depends on antigen [...] Administration?s Emergency Use Authorization. HCP Fact Sheet: https://www.fda.gov/media/914631/download Patient Fact Sheet: https://www.fda.gov/media/451728/download Performed By: #### C D:[id number] ####[place] [address] SARS-CoV-2 (COVID-19) RNA LUCERO+probe Ql (Unsp spec) No Normal [facility] Comment on above: Performed By: #### C D:[id number] ####[place] [address] SARS-CoV-2 (COVID-19) RNA LUCERO+probe Ql (Unsp spec) Unknown Normal [facility] Comment on above: Performed By: #### C D:[id number] ####[place] [address] Symptomatic as defined by CDC? Yes Normal [facility] Comment on above: Performed By: #### C D:[id number] ####[place] [address] Urgent Care Office/Clinic No sam 04-22-2021 Urgent [...] does not need to quarantine. May use dpjr-yrm-fjxumuu Tylenol and Motrin for pain relief. May use nzfh-sde-chtkgmk Chloraseptic throat spray, lozenges, cool or warm [...] No c (more content not included)... Normal [facility] Orthopedic Office/Clinic Not zeenat 03-16-2021 Orthopedic Office/Clinic Note Chief Complaint Chief Complaint f/u Lt shoulder. History of Present Illness HISTORY: This 20 year old male presents to the office with complaints of left shoulder pain over a period of time. He went to [facility] for treatment on 01-29-21. Reports to injury [...] Impingement positive Speeds test positive Valentin positive Troup's negative Liftoff negative Crossover negative Fall back [...] of t (more content not included)... 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 He went to [facility] for treatment on 01-29-21. Reports to injury [...] Impingement positive Speeds test positive Valentin positive Troup's negative Liftoff negative Crossover negative Fall back [...] BID, # 60 tabs, 0 Refill(s), Pharmacy: [facility]/pharmacy #5813 diclofenac topical, 1 joshua, Topical, QID, PRN, # 100 g, 0 Refill(s), Pharmacy: [facility]/pharmacy #[id number] Referral to Physical Therapy 2. Strain [...] the ri (more content not included)... Normal [facility] XR Shoulder Complete Lefton 03-02-2021 XR Shoulder [...] Electronically Signed in Other Vendor System) Normal [facility] Orthopedic Office/Clinic Not zeenat 02-23-2021 Orthopedic Office/Clinic Note Chief Complaint Chief Complaint PER DIEM NURSE- lt shoulder strain History of Present Illness HISTORY: This 20 year old male presents to the office with complaints of left shoulder pain over a period of time. He went to [facility] for treatment on 01-29-21. PAIN: Location:left shoulder [...] IMPRESSION: Normal left shoulder radiographs. Signed By: Adolfo Hinson MD Additional Vitals No qualifying data available. Assessment/Plan [...] 48 hrs. Make a follow-up appointment with [facility]. Go to the emergency department for any worsening symptoms such as numbness/tingling to the extremity, or any other concerns. Problem List/Past Medical History Ongoing No qualifying data Historical No qualifying data Medications lidocaine 5% topical film, 1 patches, Topical, Daily, PRN Allergies No Known Allergies Social History Tobacco Never (less than 100 in lifetime) Use:. Electronically Signed by Celine Mooney 02/11/21 13:31 EDT Electronically Signed by Jesica Celine 02/11/21 13:41 EDT Electronically Signed by Jesica Celine 02/17/21 11:44 EDT Candice Brambila PA-C Normal [facility] Comment on above: Order Comment: no sh ow Vital Signs Date Time Vital Sign Value Performing Clinician Facility 08-19-2023 16:40-0500 Body height 185.42 cm Brigette Vizcaino Other [facility] Other 08-19-2023 16:40-0500 Body mass index (BMI) [Ratio] 30.55 kg/m2 Brigette Vizcaino Other [facility] Other 08-19-2023 16:40-0500 Body temperature 98.3 [degF] Brigette Perezmond Other [facility] Other 08-19-2023 16:40-0500 Body weight 105.05 kg Brigette Vizcaino Other [facility] Other 08-19-2023 16:40-0500 Diastolic blood pressure 62 mm[Hg] Brigette Vizcaino Other [facility] Other 08-19-2023 16:40-0500 Respiratory rate 18 /min Brigette Vizcaino Other [facility] Other 08-19-2023 16:40-0500 SaO2% (BldA) [Mass fraction] 97 % Brigette Vizcaino Other [facility] Other 08-19-2023 16:40-0500 Systolic blood pressure 123 mm[Hg] Brigette Perezmond Other [facility] Other 12-14-2022 16:40-0400 Body height 185.42 cm Jonaa Mendes Other [facility] Other 12-14-2022 16:40-0400 Body temperature 98.6 [degF] Joana Mendes Other [facility] Other 12-14-2022 16:40-0400 Diastolic blood pressure 78 mm[Hg] Joana Mendes Other [facility] Other 12-14-2022 16:40-0400 Respiratory rate 18 /min Joana Mendes Other [facility] Other 12-14-2022 16:40-0400 SaO2% (BldA) [Mass fraction] 97 % Joana Mendes Other [facility] Other 12-14-2022 16:40-0400 Systolic blood pressure 129 mm[Hg] Joana Mendes Other [facility] Other 11-19-2021 11:25-0400 Blood Pressure Location [facility] 11-19-2021 11:25-0400 Body temperature 98.42 [degF] [facility] 11-19-2021 11:25-0400 BP/Pulse Patient Position [facility] 11-19-2021 11:25-0400 Diastolic blood pressure 81 mm[Hg] [facility] 11-19-2021 11:25-0400 Heart rate 67 /min [facility] 11-19-2021 11:25-0400 Mean blood pressure 99 mm[Hg] [facility] 11-19-2021 11:25-0400 Respiratory rate 16 /min [facility] 11-19-2021 11:25-0400 SaO2% (BldA) [Mass fraction] 97 % [facility] 11-19-2021 11:25-0400 Systolic blood pressure 136 mm[Hg] [facility] 11-19-2021 10:09-0400 Blood Pressure Location [facility] 11-19-2021 10:09-0400 Body temperature 97.88 [degF] [facility] 11-19-2021 10:09-0400 BP/Pulse Patient Position [facility] 11-19-2021 10:09-0400 Diastolic blood pressure 75 mm[Hg] [facility] 11-19-2021 10:09-0400 Heart rate 68 /min [facility] 11-19-2021 10:09-0400 Mean blood pressure 95 mm[Hg] [facility] 11-19-2021 10:09-0400 Respiratory rate 14 /min [facility] 11-19-2021 10:09-0400 SaO2% (BldA) [Mass fraction] 98 % [facility] 11-19-2021 10:09-0400 Systolic blood pressure 133 mm[Hg] [facility] 11-19-2021 10:05-0400 Blood Pressure Location [facility] 11-19-2021 10:05-0400 Body temperature 97.88 [degF] [facility] 11-19-2021 10:05-0400 Diastolic blood pressure 68 mm[Hg] [facility] 11-19-2021 10:05-0400 Heart rate 74 /min [facility] 11-19-2021 10:05-0400 Respiratory rate 12 /min [facility] 11-19-2021 10:05-0400 SaO2% (BldA) [Mass fraction] 97 % [facility] 11-19-2021 10:05-0400 Systolic blood pressure 115 mm[Hg] [facility] 11-19-2021 09:50-0400 Respiratory rate 20 /min [facility] 11-19-2021 09:45-0400 Respiratory rate 13 /min [facility] 11-19-2021 09:36-0400 Body temperature 97.16 [degF] [facility] 11-19-2021 09:30-0400 Respiratory rate 17 /min [facility] 11-19-2021 07:16-0400 Mean blood pressure 95 mm[Hg] [facility] 11-19-2021 07:15-0400 Body temperature 97.88 [degF] [facility] 11-19-2021 07:15-0400 Heart rate 80 /min [facility] Encounters Encounter Date Encounter Type Care Provider Facility Start: 08-08-2024 End: 08-08-2024 ambulatory NON STAFF Facility:[facility] Start: 08-19-2023 End: 08-19-2023 Departed Referred PER DIEM NURSE-C Brigette Charis Work Phone: [facility] Work Phone: Start: 08-19-2023 End: 08-19-2023 ambulatory Brigette Charis [facility] [employer] Other Start: 08-19-2023 Office outpatient vi sit 15 minutes Brigette Vizcaino [facility] Start: 08-03-2023 End: 08-04-2023 ambulatory Jakob Velasquez Facility:[facility] Start: 05-04-2023 End: 05-05-2023 ambulatory Jakob Velasquez Facility:[facility] Start: 05-03-2023 ambulatory Jakob Velasquez Facility:[facility] Start: 02-24-2023 End: 02-24-2023 ambulatory MARY Gomez Work Phone: [facility] Work Phone: Start: 02-24-2023 End: 02-24-2023 Patient encounter procedure MARY Gomez Work Phone: [facility] Work Phone: Start: 12-14-2022 End: 12-14-2022 ambulatory Joana Mendes Other [facility] [employer] Other Start: 12-14-2022 Office outpatient vi sit 25 minutes Joana Mendes [facility] Start: 01-14-2022 End: 01-14-2022 Emergency department patient visit TAMMY Beth Facility:[facility] Start: 12-03-2021 End: 12-03-2021 Emergency department patient visit ELIZABETH JAUREGUI Facility:[facility] Start: 11-19-2021 End: 11-19-2021 Admission to same day surgery center [facility] Start: 11-16-2021 End: 02-14-2022 Recurring [facility] Start: 04-12-2018 End: 04-12-2018 Patient encounter [...] Unspecified specimen by LUCERO with probe detection [facility] C enter Neisseria gonorrhoea e DNA [Presence] in Unspecified specimen by LUCERO with probe detection [facility] C enter Trichomonas vaginali s DNA [Presence] in Unspecified specimen by LUCERO with probe detection [facility] C enter Payers Date Payer Category Payer Self-pay [id number] 2022 Medicaid [id number] 2. [id number] 2021 Unknown 2000 Unknown [id number] 2.16. [id number] 2000 Unknown [id number] 2.16. [id number] 2000 Unknown [id number] 2.16.8 [id number] 2000 Unknown [id number] 2.16.8 [id number] 1959 Unknown [id number] Unknown [id number] 2.16.8 [id number] Unknown [id number] 2.16.8 [id number] Social History Date Type Detail Facility Start: 11-12-2021 Tobacco smoking status Light t obacco smoker (finding) [facility] Sex Assigned At Male [facility] Start: 2000 Sex Assigned At Male [facility] Clinical Notes 04-22-2021 to 08-19-2023 Note Date [...] no discharge or lesions or testicular pain. [facility] Other 05-02-2023 Evaluation note* Encounter Date Diagnosis [...] for fever/discomfort, cool mist humidifier. May use [place] as needed for cough, do not take any other OTCs while using [place]. Patient to follow up with PCP in 2-3 days if symptoms do not improve. Immediate eval if SOB, difficulty breathing, chest pain, dizziness, or other concerning symptoms. Patient verbalizes understanding and is agreeable to treatment plan. 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 6. Keep the drainage bag below the [...] With:Catrachito Esposito Address: [facility] [address], [place] [address]- Business (1) When:3 to 5 days Comments:Nurse visit for Saleh catheter removal. [facility]01-13-2022 NotePatient Education Materials Name: Polina Hagan [...] a bandana, T-shirt, or other cloth. The CDC has instructions on how to make a [...] bandana, T- shirt, or other cloth. The [facility] has instructions on how to make a [...] caffeine, juices, tea, and soup. ? Taking swlb-yqc-wvlxbgz (OTC) pain medicine. These are used to [...] ? Wear protective clothing (more content not included)...[facility]01-13-2022 NoteThis is a Telephone Appointment *This visit [...] a fever today. Patient's been taking Tylenol dwya-dqg-vfentfu for symptom management. Patient states that he [...] infection Continue to treat your symptoms with cilh-rxv-fszyhpl medication. Drink plenty of fluids and take [...] to 2 mg at night Vitamin D3 [id number] u/day Optional: Famotidine 20-40 mg/day (for reflux/stomach [...] Electronically signed by Lilian Vicente 08/27/21 15:12 [facility]10-06-2021 NotePatient Education Materials Name: Polina Hagan Current Date: 05/20/2021 16:24:38 Janine/[facility] : 2000 [facility]: [id number] The following sheet(s) are the Patient Education [...] as self isolate, quarantine, ?stay at home,? ?halfway in place,? and ?lockdown.? The CDC advises [...] soap and water, use an alcohol-based hand montessori lead teacher often. Make sure it has at least [...] the CDC?s detailed cleaning website at www.c dc.gov/coronavirus/2019-ncov/prepare/cleaning-disinfection.html. ? Check your home supplies. Consider keeping [...] paper towel. ? Use an alcohol-based hand montessori lead teacher often. Make sure it has at least [...] soap and water, use an alcohol-based hand montessori lead teacher often. Make sure it has at least 60% alcohol. ? Don't touch your eyes, nose, or mouth unless you have clean hands. ? The [facility] advises wearing a cloth face mask in public. During a public health emergency, medical face masks may be reserved for healthcare workers. You may need to make a cloth face mask of your own.You can do this using a bandana, T- shirt, or other cloth. The [facility] has instructions on how to make amask. [...] ? Clean work surfaces (more content not included)...[facility]09-08-2021 NotePatient Education Materials Name: Polina Hagan Current Date: 04/22/2021 15:41:45 Janine/[facility] : 2000 The following sheet(s) are the [...] loosen secretions in the nose and lungs. ?Lpsf-jgf-iskpbzv cold medicines will not shorten the length of time you?re sick, but they may be helpful for the following symptoms: cough, sore throat, and nasal and sinus congestion. If you take prescription medicines, ask your healthcare provider or pharmacist which gvnp-qcs-pdeczok medicines are safe to use. (Note: Don't [...] goes along with a muffled voice ? [phone] [employer]. [address] [place] [address], [place] [address]. All rights reserved. This information is not [...] a bandana, T-shirt, or other cloth. The CDC has instructions on how to make a [...] other people you ferrari (more content not included)...[facility] No data available for this section [facility] note[facility] assessment information available [facility] Work Phone: History general Narrative - Reported* Type Description Date Medical History acne [facility] Other History general Narrative - Reported* Type Description Date Medical History acne Surgical History urethra 2020 [facility] Other [facility] Discharge instructions No data [facility] for this section [facility] available for this [facility] Purpose Family History No Family History Records FoundNo Family History Records FoundNo Family History Records FoundNo Family History Records Found Advance Directives No Advanced Directives Records Found Advance Directive Response Recorded Date/ Time Advance Directives No January 20 0 2:56pm Advance Directive Response Recorded Date/ Time Advance Directives No January 20 0 1:56pm Additional Source Comments (unrecognized sect ion and content) No Status Records FoundNo Status Records FoundNo Status Records FoundNo Status Records Found INFORMATION SOURCE (unrecogn ized section and content) DATE CREATED AUTHOR 04/17/2018 [facility] DATE CREATED AUTHOR AUTHOR'S ORGANIZ ATION 02/03/2022 [facility] DATE CREATED AUTHOR AUTHOR'S ORGANIZ ATION 08/23/2023 [facility] DATE CREATED AUTHOR AUTHOR'S ORGANIZ ATION 08/11/2024 [facility] Care Team (unrecognized sect ion and content) Team Status: Inactive Member Role Status Dates Tejal Gomez APRN Attending Provider Active Team Status: Inactive Member Role Status Dates FILIPE FullerC Attending Provider Active REASON FOR VISIT (unrecogniz [...] BE BASED ON THE PRIMARY CLINICAL RECORDS. [facility]. provides no warranty or guarantee of the accuracy or completeness of information in this document.
--- NOTE | 2024-11-05 19:45 | ECG_ITS ---
The [facility] Test Date: 2024-11-05 Pat Name: POLINA HAGAN Department: Room: - Gender: Male [employer]ud [employer]ick[employer] Operator: : 2000 Requested By: [id number] Order Number: [id number] Reading MD: PARIS ALEXANDRA M.D. 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
--- NOTE | 2024-11-05 19:46 | ED_ITS ---
Documented by User: [email or web address] Conde 11/05/24 21:15 HPI - Chest Pain General Chief Complaint: Chest Pain Stated Complaint: chest pain Time Seen by Provider: 11/05/24 19:28 Source: patient Source comment: chest pain x 3 days Mode of arrival: walk-in History of Present Illness HPI narrative: Patient is a 24-year-old male who presents to the emergency department for 3-day history of pain in the anterior, upper chest. He points to the sternal notch at the superior sternum as the source of his pain. 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 He denies fevers, cough or congestion. No hemoptysis. He has no significant medical history. He denies any extremity swelling. He states he vapes daily. No sick contacts in the home. He denies abdominal pain. No vomiting or diarrhea. No medications taken prior to arrival. He does not feel short of breath. Related Data Home Medications ?Medication ?Instructions ?Recorded ?Confirmed No Known Home Medications 08/08/24 11/05/24 Allergies Allergy/AdvReac Type Severity Reaction Status Date / Time No Known Drug Allergies Allergy Verified 11/05/24 19:38 Review of Systems ROS Constitutional Denies: fever or chills Ears, nose, mouth, and throat Denies: throat pain or nasal congestion Cardiovascular Reports: chest pain Respiratory Denies: shortness of breath or cough Gastrointestinal Denies: abdominal pain, nausea or vomiting Musculoskeletal Denies: back pain, neck pain, extremity pain or extremity swelling Integumentary/Breast Denies: rash Neurological Denies: headache, numbness in extremities or weakness in extremities Hematologic/Lymphatic Denies: easy bruising or easy bleeding PFSH PFSH Social History Little interest or pleasure in doing things: not at all Feeling down, depressed, or hopeless: not at all Exam Narrative Exam Narrative: Gen.: Awake, alert, in no distress Head: Normocephalic, atraumatic ENT: Moist mucous membranes Respiratory: No respiratory distress, lungs clear bilaterally Cardio: Regular rate and rhythm Gastrointestinal: Abdomen is soft, nondistended and nontender to palpation Extremities: Moves extremities equally, no pedal edema Psych: Normal mood and affect Neuro: No focal neuro deficit Skin: Warm, dry, intact Constitutional Vital Signs, click to edit/add: Last Vital Signs Temp 98.6 F 11/05/24 19:31 Pulse 80 11/05/24 20:40 Resp 24 H 11/05/24 20:40 BP 165/85 H 11/05/24 19:36 Pulse Ox 98 11/05/24 20:40 O2 Del Method Room Air 11/05/24 19:31 Course Vital Signs Vital signs: Vital Signs Temperature 98.6 F 11/05/24 19:31 Pulse Rate 87 11/05/24 19:31 Respiratory Rate 16 11/05/24 19:31 Blood Pressure 165/85 H 11/05/24 19:31 Pulse Oximetry 99 11/05/24 19:31 Oxygen Delivery Method Room Air 11/05/24 19:31 Temperature 98.6 F 11/05/24 19:31 Pulse Rate 80 11/05/24 20:40 Respiratory Rate 24 H 11/05/24 20:40 Blood Pressure 165/85 H 11/05/24 19:36 Pulse Oximetry 98 11/05/24 20:40 Oxygen Delivery Method Room Air 11/05/24 19:31 MDM - Chest Pain MDM Narrative Medical decision making narrative: Patient with reproducible tenderness to palpation at the superior sternum, no crepitance. Benign exam. EKG, labs are unremarkable and chest x-ray is pending. Case is turned over to attending physician. 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 Suspect his symptoms are unrelated. He was made aware of the WPW and the need for follow-up with cardiology. Toradol given for home for comfort. Follow-up PCP and cardiology, return to the ER if symptoms change or worsen SHARED APC VISIT, PHYSICIAN ATTESTATION: [id number] I performed a substantive part of the MDM during the patient?s E/M visit. I personally evaluated and examined the patient. I personally made or approved the documented management plan and acknowledge its risk of complications. Medical Records Data Attestation: I reviewed the patient's medical records. Lab Data Attestation: I reviewed the patient's lab results. Labs: Lab Results 11/05/24 Range/Units 19:52 WBC 8.8 (4.0-11.0) 10^3/uL RBC 5.33 (4.70-6.10) 10^6/uL Hgb 14.5 (14.0-18.0) g/dL Hct 42.8 (42.0-54.0) % MCV 80.3 (80.0-94.0) fL MCH 27.2 (25.9-34.0) pg MCHC 33.9 (29.9-35.2) g/dL RDW 13.4 (11.0-15.0) % Plt Count 287 (150-450) 10^3/uL MPV 8.3 L (9.5-13.5) fL Neut % (Auto) 61.0 (43.0-75.0) % Lymph % (Auto) 28.2 (20.5-60.0) % Duchesne % (Auto) 7.8 (1.7-12.0) % Eos % (Auto) 2.4 (0.9-7.0) % Baso % (Auto) 0.3 (0.2-2.0) % Neut # (Auto) 5.4 (1.4-6.5) 10^3/uL Lymph # (Auto) 2.5 (1.2-3.8) 10^3/uL Duchesne # (Auto) 0.7 (0.3-0.8) 10^3/uL Eos # (Auto) 0.2 (0.0-0.7) 10^3/uL Baso # (Auto) 0.0 (0.0-0.1) 10^3/uL Abs Immat Gran (auto) 0.03 (0.00-0.03) 10^3/uL Imm/Tot Granulo (auto) 0.3 (0.0-0.5) % Sodium 139 (136-145) mmol/L Potassium 4.2 (3.5-5.1) mmol/L Chloride 104 (98-107) mmol/L Carbon Dioxide 29.2 (21.0-32.0) mmol/L Anion Gap 10.0 BUN 16.0 (7.0-18.0) mg/dL Creatinine 1.06 (0.70-1.30) mg/dL Est GFR ( Amer) >60 (>=60 mL/min/1.73m^2) Est GFR (Non-Af Amer) >60 (>=60 mL/min/1.73m^2) BUN/Creatinine Ratio 15.1 Glucose 109 H (74-106) mg/dL Calcium 8.9 (8.5-10.1) mg/dL Troponin I High Sens 5.4 (4.0-76.1) pg/mL Imaging Data Chest x-ray: Attestation: I have reviewed the pertinent imaging results. ECG Data Attestation: I personally reviewed and interpreted this ECG as follows: (Will sign rhythm at a rate of 82, delta waves noted in leads V2, V5, V6, II. No acute ST elevation or ectopy. EKG reviewed by attending physician) Heart Score History: Slightly/Non-Suspicious ECG: NS Repolarization Age: <45 years Risk Factors: 1 or 2 Risk Factors Troponin: <Normal Limit Total Heart Score Recommendations & Risks:: 2 Discharge Plan Discharge Chief Complaint: Chest Pain Clinical Impression: Chest pain, Wrxwl-Hjhnqyhrn-Mnzgz (WPW) pattern Patient Disposition: Home, Self-Care Time of Disposition Decision: 21:48 Condition: Good Mode of Transportation: Private Vehicle Prescriptions / Home Meds: No Action No Known Home Medications Print Language: Mongolian Instructions: Chest Pain (ED) Referrals: Kenya Segura MD [Physician] - 1 week Physician,Non-StaffMD [Primary Care Provider] - 1 week Documented by User: Bret Meyer MD 11/05/24 21:49 HPI - Chest Pain General Chief Complaint: Chest Pain Stated Complaint: chest pain Time Seen by Provider: 11/05/24 19:28 Related Data Home Medications ?Medication ?Instructions ?Recorded ?Confirmed No Known Home Medications 08/08/24 11/05/24 Allergies Allergy/AdvReac Type Severity Reaction Status Date / Time No Known Drug Allergies Allergy Verified 11/05/24 19:38 PFSH PFSH Social History Little interest or pleasure in doing things: not at all Feeling down, depressed, or hopeless: not at all Exam Constitutional Vital Signs, click to edit/add: Last Vital Signs Temp 98.6 F 11/05/24 19:31 Pulse 80 11/05/24 20:40 Resp 24 H 11/05/24 20:40 BP 165/85 H 11/05/24 19:36 Pulse Ox 98 11/05/24 20:40 O2 Del Method Room Air 11/05/24 19:31 Course Vital Signs Vital signs: Vital Signs Temperature 98.6 F 11/05/24 19:31 Pulse Rate 87 11/05/24 19:31 Respiratory Rate 16 11/05/24 19:31 Blood Pressure 165/85 H 11/05/24 19:31 Pulse Oximetry 99 11/05/24 19:31 Oxygen Delivery Method Room Air 11/05/24 19:31 Temperature 98.6 F 11/05/24 19:31 Pulse Rate 80 11/05/24 20:40 Respiratory Rate 24 H 11/05/24 20:40 Blood Pressure 165/85 H 11/05/24 19:36 Pulse Oximetry 98 11/05/24 20:40 Oxygen Delivery Method Room Air 11/05/24 19:31 MDM - Chest Pain MDM Narrative Medical decision making narrative: Patient with reproducible tenderness to palpation at the superior sternum, no crepitance. Benign exam. EKG, labs are unremarkable and chest x-ray is pending. Case is turned over to attending physician. 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 Suspect his symptoms are unrelated. He was made aware of the WPW and the need for follow-up with cardiology. Toradol given for home for comfort. Follow-up PCP and cardiology, return to the ER if symptoms change or worsen SHARED APC VISIT, PHYSICIAN ATTESTATION: [id number] I performed a substantive part of the MDM during the patient?s E/M visit. I personally evaluated and examined the patient. I personally made or approved the documented management plan and acknowledge its risk of complications. AIDE 9:50pm the patient's workup here is negative except WPW on his EKG. This was explained to him thoroughly and he is referred to cardiology. He has never had any symptoms from it. The rest of his workup is negative and he is able to be discharged home. Treatment diagnosis and follow-up were discussed with the patient. Differential Diagnosis Differential diagnosis: Likely pneumothorax, atypical chest pain, st elevation myocardial infarction, costochondritis and chest pain Lab Data Labs: Lab Results 11/05/24 Range/Units 19:52 WBC 8.8 (4.0-11.0) 10^3/uL RBC 5.33 (4.70-6.10) 10^6/uL Hgb 14.5 (14.0-18.0) g/dL Hct 42.8 (42.0-54.0) % MCV 80.3 (80.0-94.0) fL MCH 27.2 (25.9-34.0) pg MCHC 33.9 (29.9-35.2) g/dL RDW 13.4 (11.0-15.0) % Plt Count 287 (150-450) 10^3/uL MPV 8.3 L (9.5-13.5) fL Neut % (Auto) 61.0 (43.0-75.0) % Lymph % (Auto) 28.2 (20.5-60.0) % Duchesne % (Auto) 7.8 (1.7-12.0) % Eos % (Auto) 2.4 (0.9-7.0) % Baso % (Auto) 0.3 (0.2-2.0) % Neut # (Auto) 5.4 (1.4-6.5) 10^3/uL Lymph # (Auto) 2.5 (1.2-3.8) 10^3/uL Duchesne # (Auto) 0.7 (0.3-0.8) 10^3/uL Eos # (Auto) 0.2 (0.0-0.7) 10^3/uL Baso # (Auto) 0.0 (0.0-0.1) 10^3/uL Abs Immat Gran (auto) 0.03 (0.00-0.03) 10^3/uL Imm/Tot Granulo (auto) 0.3 (0.0-0.5) % Sodium 139 (136-145) mmol/L Potassium 4.2 (3.5-5.1) mmol/L Chloride 104 (98-107) mmol/L Carbon Dioxide 29.2 (21.0-32.0) mmol/L Anion Gap 10.0 BUN 16.0 (7.0-18.0) mg/dL Creatinine 1.06 (0.70-1.30) mg/dL Est GFR ( Amer) >60 (>=60 mL/min/1.73m^2) Est GFR (Non-Af Amer) >60 (>=60 mL/min/1.73m^2) BUN/Creatinine Ratio 15.1 Glucose 109 H (74-106) mg/dL Calcium 8.9 (8.5-10.1) mg/dL Troponin I High Sens 5.4 (4.0-76.1) pg/mL Imaging Data Chest x-ray: Radiologist's impression: No acute process seen in the chest Heart Score Total Heart Score Recommendations & Risks:: 2 Discharge Plan Discharge Chief Complaint: Chest Pain Clinical Impression: Chest pain, Sqpda-Soqeslzda-Jjnur (WPW) pattern Patient Disposition: Home, Self-Care Time of Disposition Decision: 21:48 Condition: Good Mode of Transportation: Private Vehicle Prescriptions / Home Meds: No Action No Known Home Medications Print Language: Mongolian Instructions: Chest Pain (ED) Referrals: Kenya Segura MD [Physician] - 1 week PhysicianNon-MD Grace [Primary Care Provider] - 1 week
[2024-11-05 19:59] LABS: Basophils Percent Auto 0.3 % (0.2-2.0); Eosinophils Absolute Auto 0.2 10^3/uL (0.0-0.7); Eosinophils Percent Auto 2.4 % (0.9-7.0); Hematocrit 42.8 % (42.0-54.0); Hemoglobin 14.5 g/dL (14.0-18.0); Immature Granulocytes Abs Auto 0.03 10^3/uL (0.00-0.03); Immature Granulocytes Pct Auto 0.3 % (0.0-0.5); Lymphocytes Absolute Auto 2.5 10^3/uL (1.2-3.8); Lymphocytes Percent Auto 28.2 % (20.5-60.0); Mean Corpuscular HGB Conc 33.9 g/dL (29.9-35.2); Mean Corpuscular Hemoglobin 27.2 pg (25.9-34.0); Mean Corpuscular Volume 80.3 fL (80.0-94.0); Mean Platelet Volume 8.3 fL (9.5-13.5); Monocytes Absolute Auto 0.7 10^3/uL (0.3-0.8); Monocytes Percent Auto 7.8 % (1.7-12.0); Neutrophils Absolute Auto 5.4 10^3/uL (1.4-6.5); Platelet Count 287 10^3/uL (150-450); Red Blood Count 5.33 10^6/uL (4.70-6.10); Red Cell Distribution Width 13.4 % (11.0-15.0); White Blood Count 8.8 10^3/uL (4.0-11.0)
[2024-11-05 20:18] LABS: BUN Creatinine Ratio 15.1; Calcium 8.9 mg/dL (8.5-10.1); Carbon Dioxide 29.2 mmol/L (21.0-32.0); Chloride 104 mmol/L (98-107); Estimated GFR (African America >60 (>=60 mL/min/1.73m^2); Estimated GFR (Non-African Ame >60 (>=60 mL/min/1.73m^2); Glucose 109 mg/dL (74-106); Potassium 4.2 mmol/L (3.5-5.1); Sodium 139 mmol/L (136-145); Troponin I High Sensitivity 5.4 pg/mL (4.0-76.1)
== END 2024-11-05 21:50 | disposition home or self-care (01) ==
PROVIDERS: Physician Assistant; Emergency Provider Emergency Medicine
DX: R07.9 Chest pain, unspecified (principal); I45.6 Pre-excitation syndrome; F17.290 Nicotine dependence, other tobacco product, uncomplicated
CPT/HCPCS: 36415; 71045; 80048; 84484; 85025; 93005; 99285

== ENCOUNTER 2024-12-04 08:02 | Outpatient (OUT) | payer OTHER, SELFPAY ==
--- NOTE | 2024-12-04 08:05 | CA_ITS ---
Patient Name: POLINA HAGAN MR#: [id number] : 2000 Exam Date: 12/04/2024 Ordering Doctor: DR. RITU GUTIERREZ M.D. ECHOCARDIOGRAM REPORT PROCEDURE: CA ECHO DOPPLER COMPLETE INDICATIONS: Abnormal EKG, WPW COMPARISON: None. DESCRIPTION: COMPLETE ECHOCARDIOGRAM Real-time transthoracic echocardiography with 2D, M-mode, spectral and color flow Doppler performed. QUALITY: Technical quality was good. LEFT VENTRICLE: Normal chamber size. Normal left ventricular wall thickness. Global left ventricular systolic function is normal. LV EF: Estimated left ventricular ejection fraction is 60-65%. DIASTOLIC: Normal diastolic function. ATRIAL SEPTUM: LEFT ATRIUM: Normal chamber size. RIGHT ATRIUM: Normal chamber size. RIGHT VENTRICLE: Normal chamber size. Normal right ventricular systolic function. TRICUSPID VALVE: Normal mobility and thickness. No stenosis with trivial regurgitation. Unable to assess right-sided pressures due to lack of measurable tricuspid regurgitation. MITRAL VALVE: Normal mobility and thickness. No evidence of mitral valve stenosis. There is no mitral annular calcification. No mitral regurgitation. AORTIC VALVE: Normal trileaflet appearance. No visible sclerosis. Normal leaflet mobility. No evidence of aortic valve stenosis. No aortic regurgitation. AORTIC ROOT: Normal diameter and appearance, measuring 3.1 cm. The ascending aorta is normal in size measuring 2.4 cm. PULMONIC VALVE: Normal thickness and mobility. No stenosis. Trivial regurgitation. PERICARDIUM: No evidence of pericardial effusion. IVC: Collapses with inspirations. Mildly dilatation measuring 2.2cm. PLEURA: CONCLUSION: 1. Normal ventricular size and systolic function. LVEF is 60 to 65%. 2. Normal diastolic function. 3. No significant valvular dysfunction. 4. No pericardial effusion. Adult Echocardiography Procedure Report Left Ventricle LVEDD (3.7 - 5.6 cm): 5.33 cm LVESD (2.2 - 4.0 cm): 3.85 cm LVIVS thickness (0.6 - 1.2 cm): 0.93 cm LVPW thickness (0.5 - 1.0 cm): 1.10 cm e': 0.18 m/s E - e': 5.18 LVOT Max Gradient: 5.44 mm[Hg] LVOT Area (cm2): 1.17 m/s Peak Velocity (LVOT): 1.17 m/s Mean Velocity (LVOT): 0.75 m/s LVOT Diameter 2.01 cm Left Ventricular Ejection Fraction: 60-65 % Left Atrium LA Volume Index (2D A2C): 22.82 ml/m2 Left Atrium Systolic Dimension: 3.69 cm Mitral Valve MV E to A Ratio: 1.97 Mitral Valve A-Wave Peak Velocity: 0.47 m/s Mitral Valve E-Wave Peak Velocity: 0.93 m/s Right Ventricle RV Internal Diastolic Dimension: 3.40 cm Aorta AO Root Diam: 3.06 cm Ascending Ao Diam: 2.37 cm Aortic Valve AoV Area (Peak Conner): 2.95 cm2, 2.95 cm2 AoV Area (VTI): 2.82 cm2, 2.82 cm2 Peak Velocity(Antegrade Flow): 1.26 m/s Peak Gradient(Antegrade Flow): 6.34 mm[Hg] Mean Velocity(Antegrade Flow): 0.82 m/s Mean Gradient(Antegrade Flow): 3.27 mm[Hg] Velocity Time Integral: 28.79 cm Tricuspid Valve Pulmonic Valve Mean Gradient: 2.11 mm[Hg], 1.93 mm[Hg] Mean Velocity: 0.68 m/s, 0.65 m/s Peak Velocity: 0.93 m/s Peak Gradient: 3.32 mm[Hg], 3.56 mm[Hg] Right Atrium Right Atrium Systolic Pressure: 55.18 ml, 55.18 ml Dictated by: Vin Vigil M.D. on 12/04/2024 at 18:27 Approved by: Vin Vigil M.D. on 12/04/2024 at 18:30
== END 2024-12-04 08:03 | disposition home or self-care (01) ==
LOC: CARD 08:04
PROVIDERS: Visit Provider Internal Medicine Cardiovascular Disease
DX: R94.31 Abnormal electrocardiogram [ECG] [EKG] (principal); I45.6 Pre-excitation syndrome
CPT/HCPCS: 93306

== ENCOUNTER 2025-07-26 13:19 | Emergency (ER) | payer OTHER, SELFPAY ==
[2025-07-26 13:28] VITALS: BP 160/86; PULSE 76; TEMP 37.6; O2SAT 99; BMI 33.0
--- NOTE | 2025-07-26 13:30 | XR_ITS ---
The [address] [address] Patient Name: POLINA HAGAN MRN: [id number] date: 2000 Sex: M Assigned Patient Location: ED.MAIN Current Patient Location: ED.MAIN Accession/Order Number: [id number] Exam Date: 07/26/2025 13:35 Report Date: 07/26/2025 14:02 At the request of: LINN HO Procedure: XR foot RT min 3V RIGHT FOOT - 3 views CLINICAL DATA: Right lateral foot pain for the past couple days. No specific injury COMPARISON: None AP, lateral and oblique views were obtained. There is no evidence of fracture or dislocation. There are no significant soft tissue abnormalities. XR/XR foot RT min 3V IMPRESSION: NO ACUTE BONY FINDINGS. Impression dictated by: Tiana Sanchez M.D. 07/26/2025 2:02 PM Dictation Location: [place] [address] Electronically authenticated by: [id number] Y Date: 07/26/2025 14:02
--- OUTSIDE RECORDS SUMMARY | 2025-07-26 14:14 | XMS_ITS | CCD ---
Author Organization [facility] CliniSytx Care Team Providers Care Sale Professional Digital Marketing Name Role Phone JAKE JAUREGUI Unavailable Unavailable ERI BARTON Unavailable Unavailable ERI BARTON Unavailable Unavailable ERI BARTON Unavailable Unavailable JAKE JARUEGUI Primary Care Physician TAMMY Beth Attending UnavailJAKE Rodriguez Consulting Unavailable JAKE JAUREGUI Primary Care Unavailable JAKE JAUREGUI Consulting Unavailable JAKE JAUREGUI Primary Care Unavailable Robbie Shultz Attending Unavailable Joana Mendes Unavailable MARY Gomez Attending Provider Brigette Vizcaino Unavailable Jakob Velasquez Attending Unavailable Jakob Velasquez Attending Unavailable JULIUS Vizcaino Attending Provider Unavailable Primary Care Provider UnavailJakob Mohan MD Primary Care Provider [phone] Joana Mendes APRN Attending Provider Coreen Maurer APRN Primary Care Provider Coreen Maurer APRN Attending Provider [phone] Celine Cain MD Emergency Provider [phone] She Flower CMA Attending Provider UnavailCoreen Samayoa NP Unavailable Coreen Maurer Primary Care Unavailable Celine Cain Admitting Unavailable Celine Cain Attending Unavailable NON STAFF Admitting Unavailable NON STAFF Attending Unavailable Jakob Velasquez Primary Care Unavailable MARYSE BAE Admitting Unavailable MARYSE BAE Attending Unavailable MARYSE BAE Referring Unavailable TYRONE LINDSAY Referring Unavailable RITU CONNOLLY Attending Unavailable MARYSE BAE Attending Unavailable RITU CONNOLLY Attending Unavailable MARYSE BAE Attending Unavailable MARYSE BAE Referring Unavailable Coreen Maurer APRN Primary Care Provider Coreen Maurer APRN Attending Provider [phone] Marlee Avila APRN Attending Provider Allergies Allergy ClassificationReported Allergen(s)Allergy TypeDate of OnsetReaction(s) Facility (1 source)No Known Medication Allergies; Translations: [No Known Medication Allergies]Propensity to adverse reactions (disorder)[facility] Repository Medications Current Medications MedicationDrug Class(es)DatesSig (Normalized)Sig (Original)[id number] 200 actuat albuterol 0.09 mg/actuat metered dose inhaler (1 source)beta2-Adrenergic AgonistStart: 65-45-6407jpwu 2 puff(s) by inhalation every four to six hours as neededAlbuterol Sulfate HFA 108 (90 Base) MCG/ACT 2 puffs as needed Inhalation every 4-6 hours for 14 days December, Active amLODIPine 5 mg oral tablet (2 sources)Dihydropyridine Calcium Channel BlockerStart: 52-81-6994kpng 1 tablet by mouth once dailyAmlodipine 5 mg tablet Active 5 MG PO Daily March 14, 2025 12:00am Complies with drug therapybusPIRone hydrochloride 10 mg oral tablet (9 sources)Start: 02-08-2025 End: 18-21-5357aoya 1 tablet by mouth three times dailyBuspirone 10 mg tablet Active 10 MG PO Three times daily 270 90 March 14, 2025 2:08pm Complies with drug therapyStart: 01-29-2025 End: 45-31-3399ikmo 1 tablet by mouth twice dailyBuspirone 5 mg tablet Discontinued 5 MG PO Twice daily 60 30 January 29, 2025 12:00am February 08, 2025 11:19amcephalexin 500 mg oral capsule (1 source)Cephalosporin AntibacterialStart: 11-19-2021 End: 36-43-1484adgq 1 capsule by mouth every twelve hoursKeflex 500 mg Cap 500 mg = 1 cap(s), Oral, q12hr, X 5 day(s), # 10 cap(s), Refills(s) 0, Pharmacy: [facility]/pharmacy #[id number], 185.3, cm, 11/12/21 15:39:00 EDT, Height/Length Dosing, 119.6, kg, 11/12/21 15:39:00 EDT, Weight Dosing Start Date: 11/19/21 Stop Date: 11/24/21 Status: Ordereddextromethorphan hydrobromide 1.5 mg/ml / pyrilamine maleate 1.5 mg/ml oral solution (1 source)Uncompetitive U-nwbcpr-T-aspartate Receptor Antagonist, Sigma-1 AgonistStart: 68-32-3603vnlv 10 mL by mouth every eight hoursCapron DM 7.5-7.5 MG/5ML 10 mL Orally every 8 hours for 5 days December, Activehyoscyamine sulfate 0.125 mg oral tablet (2 sources)Start: 01-43-3477yzrd 1 tablet by mouth four times daily as needed for muscle spasmsLevsin 0.125 mg SL Tab 0.125 mg = 1 tab(s), Oral, QID, PRN spasm, # 20 tab(s), Refills(s) 0, Pharmacy: [facility]/pharmacy #[id number], 185.3, cm, 11/12/21 15:39:00 EDT, Height/Length Dosing, 119.6, kg, 11/12/21 15:39:00 EDT, Weight Dosing Start Date: 11/19/21 Status: OrderedmethylPREDNISolone 4 mg oral tablet (1 source)CorticosteroidStart: 51-29-2643kgodcsGQKPZAXjwhvk 4 MG as directed Orally for daily dose take half with breakfast, half with dinner for 6 days December, Active Completed/Discontinued Medications MedicationDrug Class(es)DatesSig (Normalized)Sig (Original)dextromethorphan hydrobromide 15 mg / guaiFENesin 400 mg / pseudoephedrine hydrochloride 60 mg oraltablet (5 sources)alpha-Adrenergic Agonist, Uncompetitive G-hzhpdn-N-aspartate Receptor Antagonist, Sigma-1 AgonistStart: 01-15-2025 End: 75-12-8693aquo 4 tablets by mouth every twenty-four hours as needed Iyplsdkbjxalzvp-Uq-Ldwfhruvqny (Capmist Dm) 60-15-400 mg tablet Discontinued 1 TAB PO EVERY 4-6 HOURS as needed for cold symptoms January 15, 2025 12:00am January 29, 2025 2:10pm do not exceed 4 doses per 24 hrshydrOXYzine hydrochloride 25 mg oral tablet (5 sources)AntihistamineStart: 02-08-2025 End: 11-51-5535ncwv 1 tablet by mouth twice daily as needed for anxiety Hydroxyzine Hcl 25 mg tablet Discontinued 25 MG PO Twice daily as needed for anxiety 180 90 March 14, 2025 2:09pm May 20, 2025 1:38pmondansetron 8 mg oral tablet (5 sources)Serotonin-3 Receptor AntagonistStart: 01-15-2025 End: 34-07-0972tecr 1 tablet by mouth every eight hours as needed for nausea and vomitingOndansetron Hcl 8 mg tablet Discontinued 8 MG PO Q8H as needed for nausea and vomiting 04 03January 15, 2025 12:00am January 29, 2025 2:10pm Problems Active Problems Problem ClassificationProblemDateDocumented DateEpisodic/ChronicAbdominal pain (2 sources)Flank xhgk80-70-5777IezexewrNerbipv disorders (10 sources)Generalized anxiety disorder; Translations: [Generalized anxiety disorder]36-68-3269LmctqohFntcdfq obstructive pulmonary disease and bronchiectasis (2 sources)Bronchitis, not specified as acute or chronic; Translations: [BRONCHITIS NOT SPEC ACUTE/CHRON]Onset: 17-81-0014CsewxsucYrfjqfqxgp disorders (17 sources)Rvwic-Fyvtkdzso-Yqjha pattern; Translations: [Pre-excitation syndrome]Onset: 017054-66-2286NohjlrqOqoybbhyg hypertension (4 sources)Essential (primary) hypertension; Translations: [Hypertensive disorder]Onset: 02-09-1807AfzpgbkHksbnknywbudb symptoms and ill-defined conditions (4 sources)Post-micturition incontinence ; Translations: [Urge incontinence of urine]38-55-1789BhvzjakByzpbukvaviic symptoms and ill-defined conditions (6 sources)Delay when starting to pass urine; Translations: [Dysuria]09-29-2021 EpisodicOther circulatory disease (2 sources)Personal history of other diseases of the circulatory system; Translations: [Personal history of other diseases of the circulatory system] Onset: 04-51-1474BowcbyalGdzhr diseases of bladder and urethra (2 sources)Urethral gqxgudwgq89-54-0248JlhhsqnxDvpub lower respiratory disease (3 sources)Cough; Translations: [COUGH]Onset: 12-92-9453PstbrelxSvbnu nutritional; endocrine; and metabolic disorders (2 sources)Other obesity due to excess calories; Translations: [Other obesity due to excess calories]Onset: 32-34-9940WngnjwcVmrpb nutritional; endocrine; and metabolic disorders (2 sources)Body mass index (BMI) 34.0-34.9, adult; Translations: [Body mass index (BMI) 34.0-34.9, adult]Onset: 23-49-6300CnkkpzrAdlwr skin disorders (5 sources)Acne; Translations: [Acne, unspecified]70-65-0740RltrjghgUxatkeiz codes; unclassified (2 sources)Other specified postprocedural states; Translations: [Other specified postprocedural states]Onset: 44-08-4067OjpxyrjhPiayczatf-related disorders (2 sources)Jdpywp07-73-3596HntdaztJqfspmj on above:Added secondary to documentation in Social History.Syncope (9 sources)Near syncope; Translations: [Syncope and collapse]Onset: 11-15-2024 84-88-1877McdtiwpuNzoihxjokiom (1 source)I45.6 - Pre-excitation syndromeUnclassified (1 source)Supraventricular tachycardia, unspecified; Translations: [Supraventricular tachycardia, unspecified]Onset: 95-39-6474Yweovybjxkjp (1 source)Obesity, class 1; Translations: [Obesity, class 1]Onset: 11-15-2024 Unclassified (2 sources)Keajt-Lfsesdxed-Iedwa Syndrome; Translations: [Ybalx-Ovszsvkdw-Qunck Syndrome]Onset: 46-82-1209Vjvsl infection (3 sources)Viral disease; Translations: [Viral infection, unspecified]01-15-2025 Episodic Past or Other Problems Problem ClassificationProblemDateDocumented DateEpisodic/ChronicOther screening for suspected conditions (not mental disorders or infectious disease) (2 sources)Abnormal electrocardiogram [ECG] [EKG]; Translations: [Abnormal electrocardiogram (ECG) (EKG)]Onset: 93-79-8793DasnmxxqDuramqbasbcx (1 source)Exposure to 2019 novel coronavirus; Translations: [Contact with and (suspected) exposure to COVID19]Unclassified (1 source)Supraventricular tachycardia, unspecified; Translations: [Supraventricular tachycardia, unspecified]Onset: 92-75-8340Uautyfjbmath (1 source)Obesity, class 1; Translations: [Obesity, class 1]Onset: 02-27-2025 Results Test NameValueInterpretationReference RangeFacilityNo Panel InformationOrdered By: Marlee Avila on 49-29-1498Fhjji Strep (POC)[facility] 03-92-328605Gpsvkvya by: MARLEE CASTRO on: 03/14/2025 03:01 PM Modules accepted: OrdersNormalUniversLutheran HospitalOffice Visiton 72-32-1133Ipilyp-up [id number] Carlos Hagan 2000 M Date Provider Department Center 03/14/2025 31362-PSWOMARYSE HO SANDER Gomez Family History Family Status - Relation Status Age at Mother Alive Father Alive Sister Alive Brother Alive Level of Service:18598 [place] OFFICE/OUTPATIENT ESTABLISHED MOD [facility] HospitalOrders Onlyon 51-63-7487Xqkavy [id number] Carlos Hagan 2000 M Date Provider Department Center 03/14/2025 79158-OXJOMARYSE HO SANDER Gomez Family History Family Status - Relation Status Age at Mother Alive Father Alive Sister Alive Brother AliveNormParma [facility]30The patient is Moderately Stable - Low risk of patient condition declining or worsening The patient's goals for the shift include comfort The clinical goals for the shift include VSS Problem: Pain - Adult Goal: Verbalizes/displays adequate comfort level or baseline comfort level Outcome: Progressing Problem: Safety - Adult Goal: Free from fall injury Outcome: Progressing Problem: Discharge Planning Goal: Discharge to home or other facility with appropriate resources Outcome: Progressing Problem: Chronic Conditions and Co-morbidities Goal: Patient's chronic conditions and co-morbidity symptoms are monitored and maintained or improved Outcome: ProgressingNormalUniversLutheran HospitalBASIC METABOLIC PANELon 71-12-2030Lnjrm gap [Moles/Vol]8 mmol/LNormal7-20UnRiverview Health InstituteComment on above:Performed By: #### LAB15 ####[facility] ([facility])[address] [place] [address]Sxkcwib [Mass/Vol]8.7 mg/dLNormal 8.6-10.3UnRiverview Health InstituteComment on above:Performed By: #### LAB15 ####[facility] ([facility])[address], [place] [address]Tsigjztp [Moles/Vol]107 mmol/YAsvxqz85-094OqkgjorjvvRiverview Health InstituteComment on above:Performed By: #### LAB15 ####[facility] ([facility])[address], [place] [address]LB4 [Moles/Vol]26 mmol/ZUnypzv23-50NcdhymtvyeRiverview Health InstituteComment on above:Performed By: #### [id number] ####[facility] ([facility])[address], [place] [address]Gmoafcqfyi [Mass/Vol]1.03 mg/dLNormal 0.70-1.30UnRiverview Health InstituteComment on above:Performed By: #### LAB15 ####[facility] ([facility])[address], [place] [address]BPMISGOCWL FILTRATION RATE ML/MIN/1.73 SQ M.JJXRQWQPX910.0 mL/min/1.73m*2Normal>60.0 [facility] HospitalComment on above:Result Comment: The [facility]???s estimated glomerular filtration rate (eG FR) will no longer include consideration of race in its calculation. The National Kidney Foundation???s eGFR Task Force developed new recommendations for the estimation of the glomerular filtration rate in the [place] They recommend immediate implementation of the new equation refit without the race variable in all laboratories because the calculation does not include race. In addition to not including race in the calculation and reporting, it included diversity in its development, and has acceptable performance characteristics and potential consequences that do not disproportionately affect anyone group of individuals. Performed By: #### [id number] ####[facility] ([facility])[address] [place], [place] [address]Pshxlzx [Mass/Vol]104 mg/bHSrkx52-070EnrxduezcbRiverview Health InstituteComment on above:Performed By: #### LAB15 ####[facility] ([facility])[address], [place] [address]Mqmygecsp [Moles/Vol]4.2 mmol/LNormal 3.5-5.1UnRiverview Health InstituteComment on above:Performed By: #### [id number] ####[facility] ([facility])[address], [place] [address]Fsjvsl [Moles/Vol]137 mmol/WLxwjck016-594KjoercfdtcRiverview Health InstituteComment on above:Performed By: #### LAB15 ####[facility] ([facility])[address], [place] [address]Vzfn nitrogen [Mass/Vol]12 mg/dLNormal7-25UnRiverview Health InstituteComment on above:Performed By: #### [id number] ####[facility] ([facility])[address], [place] [address]BUMK NITROGEN/CREATININE (MASS RATIO) IN SER/PLAS11.7NormalUniversLutheran HospitalComment on above: Performed By: #### LAB15 ####[facility] ([facility])[address], [place] [address]RYCmh 43-80-5286Ozdffrprlhb distribution width (RBC) [Ratio]14.1 % Omkgss62.5-15.0UnRiverview Health InstituteComment on above:Performed By: #### [id number] ####[facility] ([facility])[address] [place] [address] ERYTHROCYTE MEAN CORPUSCULAR HEMOGLOBIN CONCENTRATION (G/DL) BY TNTUFURYC55.3 g/iIPvcqgo21.0-35.0UnRiverview Health InstituteComment on above:Performed By: #### [id number] ####[facility] ([facility])[address] [place] [address]Dkiplzeggv (Bld) [Volume fraction]43.7 %Huzhzk01.0-50.0UnRiverview Health InstituteComment on above:Performed By: #### [id number] ####[facility] ([facility])[address] [place] [address]Hwmnmqpqzu (Bld) [Mass/Vol]14.1 g/dL Jjzyki04.0-17.0UnRiverview Health InstituteComment on above:Performed By: #### [id number] ####[facility] ([facility])[address] [place] [address]EUO (RBC) [Entitic mass]25.8 pgLow27.0-33.0UnRiverview Health Institute Comment on above:Performed By: #### [id number] ####[facility] ([facility])[address] [place] [address]FJI (RBC) [Entitic vol]79.9 fLLow82.0-98.0 [facility] HospitalComment on above:Performed By: #### [id number] ####[facility] ([facility])[address] [place] [address]HQBGDUQVK (10*3/UL) IN BLOOD AUTOMATED DKHOB547 10*3/sVVlwlcy254-193SbqsupkjlrRiverview Health InstituteComment on above:Performed By: #### [id number] ####[facility] ([facility])[address] [place] [address]SHV (Bld) [#/Vol]5.47 10*6/uLNormal 4.20-5.70UnRiverview Health InstituteComment on above:Performed By: #### [id number] ####[facility] ([facility] [place] [address]VHN (Bld) [#/Vol]8.29 10*3/uLNormal4.00-10.60[facility] HospitalComment on above:Performed By: #### [id number] ####[email or web address] ([facility])[address] [place], [place] [address]NRpl 58-80-7810ZPBllhzqyah Admitted 02/27/2025 for 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 CONTINUE taking these medications Instructions Last Dose Given Next Dose Due amLODIPine 5 mg tablet Commonly known as: Norvasc Take 1 tablet (5 mg) by mouth in the morning. busPIRone 10 mg tablet Commonly known as: Buspar hydrOXYzine HCL 25 mg tablet Commonly known as: Atarax Where to Get Your Medications Information about where to get these medications is not yet available Ask your nurse or doctor about these medications acetaminophen 325 mg tablet Activity No driving for 24 hours after procedure Diet Heart healthy diet Allergies Patient has no known allergies. Hospital Course Patient is a 24 y/o M with known hx of WPW, HTN who presented for an elective WPW ablation. He tolerated the procedure well. No acute events overnight. He has had some intermittent episodes of bradycardia since his procedure which he has been asymptomatic. Will continue to monitor as this will likely improve as he recovers from his ablation. Provided post procedure education to pt and significant other. Questions answered. Pt will be discharged to home in stable condition. No change in medications. EP lab Conclusion 02/27/25 HPI: Carlos is a 24-year-old gentleman who was seen by me in the cardiac electrophysiology clinic as an outpatient. At baseline, he had manifest preexcitation on the twelve-lead EKG which suggested likely the presence of an anteroseptal accessory pathway. Since his initial visit with me, he had 1 episode of presyncope and he was taken to the emergency room. 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 Informed consent The patient arrived to the electrophysiology laboratory in a fasting state. Written informed consent was obtained from the patient after a full explanation of the risks and benefits of the procedure. Anesthesia staff monitored the patient during the case. Malampati class III - soft palate, base of uvula visible. ASA Class 3 - Mod-severe systemic disease, some functional limitsContinuous electrocardiographic and hemodynamic monitoring was initiated. Vascular access: Bilateral venous access was obtained using ultrasound-guided technique with the use of modified Seldinger technique. With this, the following access points were obtained Right common femoral vein x 2 (J wires were kept in, as we had a suspicion for hematoma and therefore we did not introduce any sheaths) Left common femoral vein x 4 (6 Fr, 6 Fr, 8 Fr and 8 Fr) Catheters used: High right atrial catheter Diagnostic coronary sinus catheter His catheter Right ventricular catheter Optrell Catheter for High density mapping, Open Window mapping Baseline Measurements: As the first step after the respective catheters were positioned in their positions we made the baseline measurements. The baseline AH and HV intervals were 59 ms and 33 ms. Retrograde VA conduction was present at baseline. Para Hisian Pacing: Despite several attempts at performing Para-Hisian pacing, we had challenge in performing a valid maneuver because of inadvertent atrial capture. Stim to A time was less than 40 ms. Considering the presence of baseline manifest preexcitation we then decided to perform open window mapping with Optrell, High density mapping catheter. Particular attention was paid to the location of his as well as the points where we observer Pre-Delta A and V signal during pre-excitation. We noticed the presence of fusion and A and V at the points of best pre-delta (by about 30 ms). This was again confirmed with an ablation catheter during the subsequent steps of the procedure. One such example of propagation map is shown below. Catheter Ablation: As the next step, we then started the RF ablation and noticed that pre-excitation disappeared within about 5 seconds. Additional lesions were then applied below the initial lesion to further consolidate the ablation lesion set. After this, the follow up testing with Para Hisian pacing was performed that clearly showed an AV Erin, AV erin response and we concluded this to be an additional end point of successful ablation. Post Ablation AH and HV were= 63 and 45 ms respectively Adenosine testing: After the conclusion of our ablation, we then injected a total of 12 mg of (more content not included)...[facility] DaytonNURSNOTE on 67-92-6093XVXWKFVEVIA gone over with patient and patient's . All questions answered at this time and patient provided with work release note. RN encouraged patient to call if any new questions/concerns arise.[facility]30 on 49-15-305901Tvb patient is Moderately Stable - Low risk of patient condition declining or worsening The patient's goals for the shift include comfort and rest. The clinical goals for the shift include stable vital signs and safety. Problem: Pain - Adult Goal: Verbalizes/displays adequate comfort level or baseline comfort level Outcome: Progressing Problem: Safety - Adult Goal: Free from fall injury Outcome: Progressing Problem: Discharge Planning Goal: Discharge to home or other facility with appropriate resources Outcome: Progressing Problem: Chronic Conditions and Co-morbidities Goal: Patient's chronic conditions and co-morbidity symptoms are monitored and maintained or improved Outcome: ProgressingNormalUniversity of Baylor Scott & White Medical Center – GrapevineNURSNOTEon 68-17-3829USCVTAGEHafkwi given to RODRIGUE Gomez from Chely HUSAIN Any medications or safety alerts were reviewed. Any pending diagnostics and notifications were also reviewed, as well as any safety concerns or issues, abnormal labs, abnormal imagining, and abnormal assessment findings. Questions were answered.[facility] DaytonAbstracton 02-19-2025 [id number] Carlos Hagan [age] M [facility] Provider Department Center 02/19/2025 17266-IYLWMARYSE BAE C [facility] Family History Family Status - Relation Status Age at Mother Alive Father Alive Sister Alive Brother AliveNormalUniversLutheran HospitalOffice Visiton 02-13-2025 Follow-up [id number] Carlos Hagan 2000 M Date Provider Department Center 02/13/2025 59183-SMARRLRITU CONNOLLY Hos Family History Family Status - Relation Status Age at Mother Alive Father Alive Sister Alive Brother Alive Level of Service:85461 [place] OFFICE/OUTPATIENT ESTABLISHED MOD MDM 30 MIN Reason for Visit and Comments: Follow-up [022683] Iklsm-Sydukmlsk-Dqleu Syndrome [192][facility]36 on 86-34-263257Rf's significant other called stating that pt thought about it and would like to move forward with the ablation. Please call [phone] Alyssa pt's significant other to with update.[facility]36on Audrey ([facility]) stated pt is in ER being seen for Heat Exhaustion & Syncope. Dr. Celine Cain would like to speak w/Dr. Bae. Please Advise.[facility] DaytonAlanine aminotransferase [Enzymatic activity/volume] in Serum or PlasmaOrdered By: Celine Cain on 09-95-8793AYO [Catalytic activity/Vol]17 U/L7-52Mer[facility] Health – The Jewish HospitalComment on above:Performed By: #### PTT, CMP, MG, CBC, HS TROP, CK, PT #### [facility] [address] [place] [address] USAAlbumin [Mass/volume] in Serum or Plasma by Bromocresol green (BCG) dye binding methoOrdered By: Celine Cain on 52-81-4175Qujphsa BCG dye [Mass/Vol]4.0 g/dL3.5-5.7FMetroHealth Parma Medical CenterAlkaline phosphatase [Enzymatic activity/volume] in Serum or PlasmaOrdered By: Celine Cain on 66-10-4392JBO [Catalytic activity/Vol]67 U/O25-272QykepozmjMercy Health – The Jewish HospitalComment on above:Performed By: #### PTT, CMP, MG, CBC, HS TROP, CK, PT #### [facility] [address] [place] [address] USAAspartate aminotransferase [Enzymatic activity/volume] in Serum or PlasmaOrdered By: Celine Cain on 48-53-8398OEI [Catalytic activity/Vol]19 U/H15-42CwymjtzfzMercy Health – The Jewish HospitalComment on above: Performed By: #### PTT, CMP, MG, CBC, HS TROP, CK, PT #### [facility] [address] [place] [address] USABasophils [#/volume] in Blood by Automated countOrdered By: Celine Cain on 06-09-6344Zzekxmglx (Bld) [#/Vol]0.1 10*3/uL0.0-0.2 [facility] Jewish HospitalComment on above:Result Comment: PERFORMED BY: [place] [address] PATHOLOGIST TEACHER COUNSELOR KHANH GUAN M.D.Performed By: #### PTT, CMP, MG, CBC, HS TROP, CK, PT #### [place] [address] USABasophils/100 leukocytes in Blood by Automated count Ordered By: Celine Cain on 15-04-9178Fwmmeposz/100 WBC (Bld)0.5 %.[facility] – The Jewish HospitalComment on above:Performed By: #### PTT, CMP, MG, CBC, HS TROP, CK, PT #### [place] [address] USABilirubin.total [Mass/volume] in Serum or PlasmaOrdered By: Celine Cain on 08-37-7788Spvfmxbfu [Mass/Vol]1.1 mg/dLHigh0.3-1.0 [facility] Jewish HospitalComment on above:Performed By: #### PTT, CMP, MG, CBC, HS TROP, CK, PT #### [place] [address] USACalcium [Mass/volume] in Serum or PlasmaOrdered By: Celine Cain on 01-39-6622Hbuxvhc [Mass/Vol]9.1 mg/dL8.6-10.3FMetroHealth Parma Medical CenterComment on above:Performed By: #### PTT, CMP, MG, CBC, HS TROP, CK, PT #### [place] [address] USACarbon dioxide, total [Moles/volume] in Serum or Plasma Ordered By: Celine Cain on 57-96-0955MM1 [Moles/Vol]24.6 mmol/L21.0-31.0 [facility] Jewish HospitalComment on above:Performed By: #### PTT, CMP, MG, CBC, HS TROP, CK, PT #### [facility] [address] [place] [address] USAChloride [Moles/volume] in Serum or PlasmaOrdered By: Celine Cain on 36-50-0633Nfbmbjaz [Moles/Vol]105 mmol/F50-093KxavfuythMercy Health – The Jewish HospitalComment on above:Performed By: #### PTT, CMP, MG, CBC, HS TROP, CK, PT #### [facility] [address] [place] [address] USAComplete Blood Count Auto Diffon 95-66-5884Kung Corpuscular HGB Conc33.7 g/aGLbtybg29.5-35.6The [facility] Cabarrus Physician GroupComment on above:Performed By: #### PTT, CMP, MG, CBC, HS TROP, CK, PT #### [place] [address] USAMonocytes/100 WBC (Bld)17.27 %Normal0.00-20.00The [facility] Cabarrus Physician GroupComment on above:Performed By: #### PTT, CMP, MG, CBC, HS TROP, CK, PT #### [place] [address] USANRBC%0.1 /100{WBC}Normal0-0.5[facility] Comment on above:Performed By: #### PTT, CMP, MG, CBC, HS TROP, CK, PT #### [place] [address] USAWhite Blood Count9.8 [CFU]/mLNormal4.1-10.5The [facility]arrus Physician GroupComment on above:Performed By: #### PTT, CMP, MG, CBC, HS TROP, CK, PT #### [place] [address] USAComprehensive Metabolic Panelon 82-69-6255Edlafyx [Mass/Vol]4.0 g/dLNormal3.5-5.7The [facility] Cabarrus Physician GroupComment on above: Performed By: #### PTT, CMP, MG, CBC, HS TROP, CK, PT #### [address] [place] [address] USACreatinine Clr Calc Fvhnqwqn954.05[facility] Physician GroupComment on above:Performed By: #### PTT, CMP, MG, CBC, HS TROP, CK, PT #### [facility] [address] [place] [id number] USAGFR/1.73 sq M.predicted MDRD (S/P/Bld) [Vol rate/Area] mL/min/{1.73_m2}NormalThe Atrium Health Cabarrus Physician GroupComment on above:Performed By: #### PTT, CMP, MG, CBC, HS TROP, CK, PT #### [facility] [address] [place] [address] USACreatine kinase [Enzymatic activity/volume] in Serum or PlasmaOrdered By: Celine Cain on 53-40-7878KN [Catalytic activity/Vol]194 U/L [facility] HospitalComment on above:Performed By: #### PTT, CMP, MG, CBC, HS TROP, CK, PT #### [facility] [address] [place] [id number] USACreatinine [Mass/volume] in Serum or PlasmaOrdered By: Celine Cain on 80-46-5389Dyoflohnxj [Mass/Vol]1.06 mg/dL0.70-1.30[facility] Jewish HospitalComment on above:Performed By: #### PTT, CMP, MG, CBC, HS TROP, CK, PT #### [facility] [address] [place], [place] [address] USAECG 12 lead ECGon 05-56-2491JPL 12 lead ECGTHE SURGICAL [facility] Main [place] [place] [address] Electrocardiograph Report Signed Patient: Carlos Hagan MR#: [id number] 4 : 2000 Acct:[id number] Age/Sex: 24 / M ADM Date: 02/07/25 Loc: ER Room: Type: [facility] ER Attending Dr: Ordering Provider: Celine Cain MD Date of Service: 02/07/25 ECG/ECG 12 lead ECG: Syncope Copies to: Test Reason : Blood Pressure : */* mmHG Vent. Rate : 88 BPM Atrial Rate : 88 BPM P-R Int : 88 ms QRS Dur : 124 ms QT Int : 376 ms P-R-T Axes : 57 23 51 degrees QTcB Int : 454 ms Normal sinus rhythm Idrsj-Lcrjykhua-Fegsv Abnormal ECG No previous ECGs available Confirmed by Celine Cain MD ([id number]) on 02/07/2025 4:11:28 PM Referred By: Electronically Signed By: Celine Cain MD Transcribed By: MUS Signed By Celine Cain MD 01/14 02/[address] [place] [address] Physician GroupEosinophils [#/volume] in Blood by Automated countOrdered By: Celine Cain on 39-96-3871Hdczgksaejn (Bld) [#/Vol] 0.1 10*3/uL0.0-0.45[facility] Jewish HospitalComment on above:Performed By: #### PTT, CMP, MG, CBC, HS TROP, CK, PT #### [facility] [address] [place] [id number] USAEosinophils/100 leukocytes in Blood by Automated count Ordered By: Celine Cain on 65-73-5640Gqifgfcjzlg/100 WBC (Bld)0.6 %.[facility] Jewish HospitalComment on above:Performed By: #### PTT, CMP, MG, CBC, HS TROP, CK, PT #### [facility] [address] [place] [address] USAErythrocyte distribution width [Ratio] by Automated count Ordered By: Celine Cain on 49-77-6726Sgrjxjurpkg distribution width (RBC) [Ratio]14.3 %12.0-14.8[facility] Jewish HospitalComment on above: Performed By: #### PTT, CMP, MG, CBC, HS TROP, CK, PT #### [facility] [address] [place] [phone] USAErythrocytes [#/volume] in Blood by Automated countOrdered By: Celine Cain on 94-77-7637QYD (Bld) [#/Vol]6.12 10*6/uLHigh3.90-5.60 [facility] HospitalComment on above:Performed By: #### PTT, CMP, MG, CBC, HS TROP, CK, PT #### [facility] [address] [place] [address] USAGlucose [Mass/volume] in Serum or PlasmaOrdered By: Celine Cain on 00-65-1560Qrjyqns [Mass/Vol]94 mg/aV00-920QovkcixqsMercy Health – The Jewish HospitalComment on above:ADA recommended reference rangeRandom Glucose Reference Range is dependent on time and content of last meal. Glucose of more than 200 mg/dL in a nonstressed, ambulatory subject supports the diagnosisof Diabetes Mellitus.Result Comment: Random Glucose Reference Range is dependent on time and content of last meal. Glucose of more than 200 mg/dL in a nonstressed, ambulatory subject supports the diagnosis of Diabetes Mellitus. ADA recommended reference rangePerformed By: #### PTT, CMP, MG, CBC, HS TROP, CK, PT #### [facility] [address] [place] [address] USAHematocrit [Volume Fraction] of Blood by Automated count Ordered By: Celine Cain on 45-84-9269Wfnhvhxzqi (Bld) [Volume fraction]47.2 % 38.8-50.0[facility] Jewish HospitalComment on above:Performed By: #### PTT, CMP, MG, CBC, HS TROP, CK, PT #### [facility] [address] [place] [address] USAHemoglobin [Mass/volume] in BloodOrdered By: Celine Cain on 45-19-1760Vijmjwzvre (Bld) [Mass/Vol]15.9 g/dL13.0-17.0[facility] HospitalComment on above:Performed By: #### PTT, CMP, MG, CBC, HS TROP, CK, PT #### [facility] [address] [place] [address] USAINR in Platelet poor plasma by Coagulation assayOrdered By: Celine Cain on 56-51-9608IGX Coag (PPP) [Relative time]1.1 {INR}[facility] Jewish HospitalComment on above:INR Therapeutic Range A) Pre- and Peroperative OAT started two weeks before surgery. NOT HIP SURGERY: 1.5 - 2.5 HIP SURGERY: 2 - 3B) Primary and secondary prevention of venous THROMBOSIS: 2 - 3C) Active venous thrombosis, pulmonary embolismand prevention of recurrent venous thrombosis: 2 - 3D) Prevention of arterial thromboembolismincluding patients with mechanical heart valves: 3 - 4.5Result Comment: INR Therapeutic Range A) Pre- and Peroperative OAT started two weeks before surgery. NOT HIP SURGERY: 1.5 - 2.5 HIP SURGERY: 2 - 3 B) Primary and secondary prevention of venous THROMBOSIS: 2 - 3 C) Active venous thrombosis, pulmonary embolism and prevention of recurrent venous thrombosis: 2 - 3 D) Prevention of arterial thromboembolism including patients with mechanical heart valves: 3 - 4.5Performed By: #### PTT, CMP, MG, CBC, HS TROP, CK, PT #### [facility] [address] [place] [address] USALeukocytes [#/volume] corrected for nucleated erythrocytes in Blood by Automated counOrdered By: Celine Cain on 77-24-7872EGJ corrected for nucl RBC Auto (Bld) [#/Vol]9.8 10*3/uL4.1-10.5FMetroHealth Parma Medical CenterLeukocytes [#/volume] in Blood by Automated countOrdered By: Celine Cain on 39-12-6694ZEK (Bld) [#/Vol]9.8 10*3/uL4.1-10.5FMetroHealth Parma Medical CenterComment on above:Performed By: #### PTT, CMP, MG, CBC, HS TROP, CK, PT #### [facility] [address] [place] [address] USALymphocytes [#/volume] in Blood by Automated countOrdered By: Celine Cain on 09-64-6882Ojdrztltteq (Bld) [#/Vol]1.8 10*3/uL1.00-4.8 [facility] HospitalComment on above:Performed By: #### PTT, CMP, MG, CBC, HS TROP, CK, PT #### [facility] [address] [place] [address] USALymphocytes/100 leukocytes in Blood by Automated count Ordered By: Celine Cain on 27-51-0254Djgaiklqbua/100 WBC (Bld)18.6 %. [facility] HospitalComment on above:Performed By: #### PTT, CMP, MG, CBC, HS TROP, CK, PT #### [facility] [address] [place] [address] [Entitic mass] by Automated countOrdered By: Celine Cain on 18-52-0338KNT (RBC) [Entitic mass]26.0 pgLow27.5-35.2FMetroHealth Parma Medical CenterComment on above:Performed By: #### PTT, CMP, MG, CBC, HS TROP, CK, PT #### [facility] [address] [place], [place] [address]HC Auto (RBC) [Mass/Vol]Ordered By: Celine Cain on 96-05-6836NZSY (RBC) [Mass/Vol]33.7 g/dL32.5-35.6FMetroHealth Parma Medical CenterMCV [Entitic volume] by Automated countOrdered By: Celine Cain on 60-87-3213BTZ (RBC) [Entitic vol]77.2 fLLow83.5-101Mer[facility] HospitalComment on above:Performed By: #### PTT, CMP, MG, CBC, HS TROP, CK, PT #### [place] [address] USAMagnesium [Mass/volume] in Serum or PlasmaOrdered By: Celine Cain on 81-94-8895Ennwgnhmo [Mass/Vol]1.9 mg/dL1.9-2.7FMetroHealth Parma Medical CenterComment on above:Result Comment: PERFORMED BY: [place] [address] PATHOLOGIST TEACHER COUNSELOR KHANH GUAN M.D.Performed By: #### PTT, CMP, MG, CBC, HS TROP, CK, PT #### [place] [address] USAMonocyte distribution width [Entitic volume] in Blood by AutomatedOrdered By: Celine Cain on 70-55-6984Hodboaip distribution width Auto (Bld) [Entitic vol]17.27 %0.00-20.00[facility] Monocytes [#/volume] in Blood by Automated countOrdered By: Celine Cain on 79-84-1668Awzcjnaqf (Bld) [#/Vol]0.8 10*3/uL0.0-0.8[facility] HospitalComment on above:Performed By: #### PTT, CMP, MG, CBC, HS TROP, CK, PT #### [facility] [address] [place] [id number] USAMonocytes/100 leukocytes in Blood by Automated count Ordered By: Celine Cain on 62-12-7473Exmjgbyam/100 WBC (Bld)7.8 %.[facility] HospitalComment on above:Performed By: #### PTT, CMP, MG, CBC, HS TROP, CK, PT #### [facility] [address] [place] [phone] USANeutrophils [#/volume] in Blood by Automated countOrdered By: Celine Cain on 79-34-5394Ldnepplvuop (Bld) [#/Vol]7.1 10*3/uL1.8-7.7 [facility] HospitalComment on above:Performed By: #### PTT, CMP, MG, CBC, HS TROP, CK, PT #### [facility] [address] [place] [id number] USANeutrophils/100 leukocytes in Blood by Automated count Ordered By: Celine Cain on 70-11-9283Hxwewqeunlr/100 WBC (Bld)72.5 %. [facility] HospitalComment on above:Performed By: #### PTT, CMP, MG, CBC, HS TROP, CK, PT #### [facility] [address] [place] [phone] USANo Panel InformationOrdered By: Celine Cain on 44-30-6975Esxvmcoit GFR (CKD-EPI)> 60.0 mL/MinMercy Health – The Jewish Hospital Pharmacy Creatinine Clearance (Excu559.05[facility] Nucleated erythrocytes [Presence] in Blood by Automated countOrdered By: Celine Cain on 90-24-2200Paptuuknk RBC Auto Ql (Bld)0.1 /100{WBC}0-0.5FMetroHealth Parma Medical CenterPartial Thromboplastin Timeon 82-57-4563kONR Coag (Bld) [Time]30.5 rKvxmxn50.1-36.5The [facility]arrus Physician GroupComment on above:Result Comment: A hematocrit value greater than 55% may lead to inaccurate results in coagulation testing. Patients having hematocrit values >55% require a special collection tube for coagulation studies. Please contact the laboratory at [phone] for redraw instructions. PERFORMED BY: [place] [id number] PATHOLOGIST TEACHER COUNSELOR KHANH GUAN M.D.Performed By: #### PTT, CMP, MG, CBC, HS TROP, CK, PT #### [place] [address] USAPlatelet mean volume [Entitic volume] in Blood by Automated countOrdered By: Celine Cain on 63-92-0652Hkscejut mean volume (Bld) [Entitic vol]7.2 fL6.6-10.1FMetroHealth Parma Medical CenterComment on above:Performed By: #### PTT, CMP, MG, CBC, HS TROP, CK, PT #### [facility] [address] [place] [address] USAPlatelets [#/volume] in Blood by Automated countOrdered By: Celine Cain on 78-41-4856Afokhptjs (Bld) [#/Vol]250 10*3/tJ123-430 [facility] HospitalComment on above:Performed By: #### PTT, CMP, MG, CBC, HS TROP, CK, PT #### [place] [id number] USAPotassium [Moles/volume] in Serum or PlasmaOrdered By: Celine Cain on 29-17-0858Axmohuelm [Moles/Vol]4.1 mmol/L3.5-5.1FMetroHealth Parma Medical CenterComment on above:Performed By: #### PTT, CMP, MG, CBC, HS TROP, CK, PT #### [place] [address] USAProtein [Mass/volume] in Serum or PlasmaOrdered By: Celine Cain on 94-94-7638Lzgskss [Mass/Vol]7.6 g/dL6.4-8.9[facility] Jewish HospitalComment on above:Performed By: #### PTT, CMP, MG, CBC, HS TROP, CK, PT #### [facility] [address] [place] [address] USAProthrombin time (PT)Ordered By: Celine Cain on 77-35-0007MI Coag (PPP) [Time]12.4 s9.0-12.9[facility] Comment on above:A hematocrit value greater than 55% may lead to inaccurate results in coagulation testing. Patientshaving hematocrit values >55% require a special collection tube for coagulation studies. Please contact the laboratory at [phone] for redraw instructions.Result Comment: A hematocrit value greater than 55% may lead to inaccurate results in coagulation testing. Patients having hematocrit values >55% require a special collection tube for coagulation studies. Please contact the laboratory at [phone] for redraw instructions.Performed By: #### PTT, CMP, MG, CBC, HS TROP, CK, PT #### [facility] [address] [place] [address] USASerum globulin measurement by calculation (mass/volume) Ordered By: Celine Cain on 84-18-6800Zveljktn (S) [Mass/Vol]3.6 g/dLMercy Health – The Jewish HospitalComment on above:Performed By: #### PTT, CMP, MG, CBC, HS TROP, CK, PT #### [facility] [address] [place] [address] USASerum or plasma albumin/globulin mass ratioOrdered By: Celine Cain on 37-26-3789Cwfxpdu/Globulin [Mass ratio]1.1 {ratio}[facility] HospitalComment on above:Performed By: #### PTT, CMP, MG, CBC, HS TROP, CK, PT #### [place] [address] USASerum or plasma anion gap determinationOrdered By: Celine Cain on 47-96-8007Uqfwt gap [Moles/Vol]12.5 mmol/L6.0-15.0[facility] HospitalComment on above:Performed By: #### PTT, CMP, MG, CBC, HS TROP, CK, PT #### [facility] [address] [place] [address] USASodium [Moles/volume] in Serum or PlasmaOrdered By: Celine Cain on 36-83-5035Lqcuvf [Moles/Vol]138 mmol/G744-776YpwhpqvuwMercy Health – The Jewish HospitalComment on above:Performed By: #### PTT, CMP, MG, CBC, HS TROP, CK, PT #### [facility] [address] [place] [address] USATelephoneon [id number] Carlos Hagan 2000 M Date Provider Department Center 02/07/2025 33936-SEASEJSJOANA JARA HVC CARD [facility] Family History Family Status - Relation Status Age at Mother Alive Father Alive Sister Alive Brother Alive Reason for Visit and Comments: Dr. Cain Requesting Callback from Dr. Bae [Other][facility] DaytonTroponin I High Sensitivityon 14-22-6061Tuoqusty I High Zkggsltkggj0Opytot2-45Opi [facility] Physician GroupComment on above:Result Comment: The Troponin units of report have been changed to meet the Chest Pain Accreditation requirement, element EC5.M1l2. Troponin units are changed from pg/ml to ng/L. Also, the decimal is removed and results are in whole numbers. PERFORMED BY: [place] [id number] PATHOLOGIST TEACHER COUNSELOR KHANH GUAN M.D.Performed By: #### HS TROP #### [facility] [address] [place] [address] USATroponin I High Jmkxmmsmtvo7Ytpugd6-49Htk [facility] Physician GroupComment on above:Result Comment: The Troponin units of report have been changed to meet the Chest Pain Accreditation requirement, element EC5.M1l2. Troponin units are changed from pg/ml to ng/L. Also, the decimal is removed and results are in whole numbers. PERFORMED BY: [address] [place] [address] PATHOLOGIST TEACHER COUNSELOR KHANH GUAN M.D.Performed By: #### PTT, CMP, MG, CBC, HS TROP, CK, PT #### [facility] [address] [place] [id number] USATroponin I.cardiac [Mass/volume] in Serum or Plasma by Detection limit <= 0.01 ng/mLOrdered By: Celine Cain on 89-42-3065Yrcchipu I.cardiac DL <= 0.01 ng/mL [Mass/Vol]4 ng/L0[facility] Comment on above:The Troponin units of report have been changed to meet the Chest Pain Accreditation requirement, element EC5.M1l2. Troponin units are changed from pg/ml to ng/L. Also, the decimal is removed and results are in whole numbers.Urea nitrogen [Mass/volume] in Serum or PlasmaOrdered By: Celine Cain on 47-93-1172Zvsu nitrogen [Mass/Vol]15 mg/dL03-08[facility] HospitalComment on above:Performed By: #### PTT, CMP, MG, CBC, HS TROP, CK, PT #### [facility] [address] [place] [address] USAaPTT in Platelet poor plasma by Coagulation assayOrdered By: Celine Cain on 66-51-6918lDNI Coag (PPP) [Time]30.5 s25.1-36.5FMetroHealth Parma Medical CenterComment on above:A hematocrit value greater than 55% may lead to inaccurate results in coagulation testing. Patientshaving hematocrit values >55% require a special collection tube for coagulation studies. Please c ontact the laboratory at [phone] for redraw instructions.Influenza virus B Ag [Presence] in Upper respiratory specimen by Rapid immunoassayon 01-15-2025 FLUBV Ag IA.rapid Ql (Nph)NegativeMercy Health – The Jewish HospitalNo Panel Informationon 21-11-9991Jpeukyrdb Type A (Rapid)NegativeMercy Health – The Jewish HospitalPO SARS CoV-2 AntigenNegativeMercy Health – The Jewish Hospital Office Visiton 91-30-5902Nrjmtj-up [id number] Carlos Hagan 2000 M Date Provider Department Center 12/19/2024 31711-OFGAMARYSE GAMEZ SANDER [place] . Family History Family Status - Relation Status Age at Mother Alive Father Alive Sister Alive Brother Alive Level of Service:00968 [place] OFFICE/OUTPATIENT ESTABLISHED MOD MDM 30 [facility]36on 27-71-124611Sbifbgxnw echo from 12/04/2024: Per Dr. Connolly - please inform patient his echo is normal. Spoke with patient and let him know. He verbalized understanding. He will drop his event monitor off tomorrow.NormalUnRiverview Health InstituteOffice Visiton 34-98-3519Umzdpu-up [id number] Carlos Hagan 2000 M Date Provider Department Center 11/15/2024 90257-JLZRECRITU STONE SANDER [facility] Family History Family Status - Relation Status Age at Mother Alive Father Alive Sister Alive Brother Alive Level of Service:60482 [place] OFFICE/OUTPATIENT NEW MODERATE MDM [facility] A Culture Onlyon 12-13-7059Ucoqm A Culture OnlyNo Group A Beta Streptococcus Isolated 2 Days PERFORMED BY: [place] [address] PATHOLOGIST TEACHER COUNSELOR BETSY CALLES M.D.NormalTgh Brooksville Physician GroupComment on above: Performed By: #### CUSTA #### [place] [address] USAConsultation Noteon 76-78-3983Sfpghllxentl Note [id number]#1.00TIFFNormalFisher Holy Cross HospitalChlamydia/GC/Trich NAAon 48-77-9585Oqzlkzvii/GC/Trich NAANegativeNegative [facility] [employer] Other Urinalysis - AUTOMATEDon 90-90-9588Flqspgkjib (U)clear [employer] Other Bilirubin Ql (U)NegativeNort [employer] Other Color (U)dark yellowWest Palm Beach Mobiotics Other Glucose Ql (U)NegativeWest Palm Beach Mobiotics Other Hemoglobin Ql (U)trace-intactWest Palm Beach Mobiotics Other Ketones Ql (U)NegativeShadowdCat Consulting [employer] Other Leukocyte esterase Test strip Ql (U)NegativeShadowdCat Consulting Mobiotics Other Nitrite Ql (U)[facility] [employer] Other pH (U)5.5 [pH][place] [employer] Other Protein Ql (U)[facility] CenterShadowdCat Consulting Mobiotics Other Specific gravity (U) [Rel density]>=1.030[place] [employer] Other Urobilinogen (U) [Mass/Vol]0.2 mg/dLWest Palm Beach Mobiotics Other Urinalysis - AUTOMATEDWest Palm Beach Mobiotics Other Ambulatory Visit Summaryon 63-02-3444Kolbxljwar Visit Summary CARLOS HAGAN :2000 Visit Date:05/04/2023 Ambulatory Visit Instructions Your Diagnosis Acute URI Vaping-related disorder BMI 31.0-31.9,adult Class 1 obesity due to excess calories in adult Your Care Team Attending Physician - Ron BRAY, Jakob Kurtz. Primary Care Physician - MILTON BRAY, JAKE Kurtz This Is Your Medications List hyoscyamine [...] EST With: Ron BRAY, Jakob Feliz Where: [facility] Medicine Office/Clinic Noteon 30-34-6123Fkpfod Medicine Office/Clinic NoteHPI Staff Carlos is a 22 year old male presenting [...] 2000 Recorded hepatitis B pediatric vaccine 2000 RecordedCleveland Clinic Euclid HospitalComment on above:Result Comment: Electronically Signed By: Ron BRAY, Jakob Aldridge.br\Date and Time Signed: 05/04/23 17:14 EDT. Microscp Aon 41-11-1202EY MucusPresentAbnormalAbsentUniversity Hospitals Tripoint Medical CenterComment on above: Performed By: #### [id number] ####[address] [id number] RBC Quant27 /HPFHigh0-5BPaulding County Hospital Comment on above:Performed By: #### [id number] ####[address] [address] WBC Quant2 /HPFNormal0-5 [facility] Medical CenterComment on above:Performed By: #### CD:[id number] ####[address] [address].eGFRon 95-65-9284DLX/1.73 sq M.predicted MDRD (S/P/Bld) [Vol rate/Area]mL/min/{1.73_m2} Normal>=60[facility] Tri[facility] Medical CenterComment on above:Result Comment: [facility] Laboratories have implemented the eGFR calculation approach that does not havea coefficient for race and that conforms to [...] maximum of SCr/? or 1 Age = yearsPerformed By: #### EGFR ####[address] [address]Oyuei Metabolic Profileon 81-23-8803Byeab gap [Moles/Vol] 15 mmol/LNormal7-17[facility] Tripoint Medical CenterComment on above:Performed By: #### CD:[id number] ####[address] [address]Wypalen [Mass/Vol]9.3 mg/dLNormal8.5-10.3BPaulding [facility] Hospital Comment on above:Performed By: #### CD:[id number] ####[address] [address]Urdinlrw [Moles/Vol]99 mmol/L Qzaktw05-845CcrhwvuytUniversity Hospitals Tripoint Medical CenterComment on above:Performed By: #### CD:[id number] ####[address] [address]TK0 [Moles/Vol]26 mmol/XCecior64-51HiyrmlkzpUniversity Hospitals Tripoint Medical CenterComment on above:Performed By: #### CD:[id number] ####[address] [address]Bjcrhmtsrd [Mass/Vol]1.06 mg/dLNormal0.61-1.24 [facility] CenterComment on above:Performed By: #### CD:[id number] ####[address] [address]Nbyzrzi [Mass/Vol]111 mg/eVTstl31-69TgsnnoimxUniversity Hospitals Tripoint Medical CenterComment on above: Performed By: #### CD:[id number] ####[address] [address]Omzbwevdk [Moles/Vol]3.9 mmol/LNormal3.4-4.8BPaulding County HospitalComment on above:Performed By: #### CD:[id number] ####[address] [address]Lyvcgm [Moles/Vol]136 mmol/OXtgorj259-953OgcsvccthUniversity Hospitals Tripoint Medical CenterComment on above:Performed By: #### CD:[id number] ####[address] [address]Xtcb nitrogen [Mass/Vol]16 mg/dLNormal8-26[facility] CenterComment on above:Performed By: #### CD:[id number] ####[address] [address]Xsrr nitrogen/Creatinine [Mass ratio]15.1 mg/ssBjqcsp42.0-20.0[facility] CenterComment on above:Performed By: #### CD:[id number] ####[address] [address]GKN w/ Diffon 01-14-2022 Erythrocyte distribution width (RBC) [Ratio]14.7 %Wtsfsu98.6-14.8BPaulding County HospitalComment on above:Performed By: #### CBC ####[address] [address]Huwebflatk (Bld) [Volume fraction]46.7 %Ncvamg78.0-53.0[facility] CenterComment on above: Performed By: #### CBC ####[address] [address]Zybbgztrkm (Bld) [Mass/Vol]15.7 g/bZFnivap53.5-17.5 [facility] CenterComment on above:Performed By: #### CBC ####[address] [address]QOF (RBC) [Entitic mass]26.2 pgLow27.0-35.0[facility] CenterComment on above: Performed By: #### CBC ####[address] [address]SCIQ09.5 %Killmc50.0-37.0[facility] Comment on above:Performed By: #### CBC ####[address] [address]ETP (RBC) [Entitic vol]78.2 fLLow80.0-100.0[facility] CenterComment on above:Performed By: #### CBC ####[address] [address]Bvdeyflb273 x10*3/mcLNormal 150-350[facility] CenterComment on above:Performed By: #### CBC ####[address] [address]Ycfgfrbq mean volume (Bld) [Entitic vol]7.1 fLNormal6.7-10.6BPaulding County HospitalComment on above:Performed By: #### CBC ####[address] [address]MEX9.97 x10*6/mcLHigh4.30-5.80[facility] CenterComment on above:Performed By: #### CBC ####[address] [address]YOE71.3 x10*3/mcLHigh4.5-11.0 [facility] CenterComment on above:Performed By: #### CBC ####[address] [address]MC Abd Pelvis w/o IV Cont Stone Prot.on 41-94-4665MT Abd Pelvis w/o IV Cont Stone Prot. [...] at the left-sided ureterovesical junction causing mild left- sided hydronephrosis and hydroureter. 2. Prominent wall of the urinary bladder could be related to underdistention or cystitis. Please correlate clinically. Radiation Dose Estimate: CTDI(mGy):0.000589 / / / kVp:120.759283 / mAs:0.441041 / / / DLP(mGy- cm):4.554954Fjtj Part: Abdomen CTDI(mGy):40.751113 / / / kVp:140.934939 / mAs:155.379456 / / / DLP(mGy- cm):1966.295180Bhfj Part: Abdomen Final Dictated by: Shanda Borges MD Dictated DT/TM: 01.14.2022 9:11 am Signed by: Shanda Borges MD Signed (Electronic Signature): 01.14.2022 9:25 am (If Report Is Signed, Electronically Signed in Other Vendor System)Normal [facility] Medical CenterDiff Autoon 47-11-2262Agjz Absolute0.0 x10*3/mcL Normal0.0-0.2BPaulding County HospitalComment on above:Performed By: #### .Automated Diff ####[address] [address]Nnstdqfyd/100 WBC (Bld)0.3 %Normal0.0-1.2BPaul[facility] Comment on above:Performed By: #### .Automated Diff ####[address] [address]Oco Absolute0.0 x10*3/mcLNormal 0.0-0.4BPaulding County HospitalComment on above:Performed By: #### .Automated Diff ####[address] [address]Ravejfmdwqt/100 WBC (Bld)0.3 %Normal0.0-6.1BP[facility] Comment on above:Performed By: #### .Automated Diff ####[address] [address]Ulegb Absolute1.4 x10*3/mcLNormal 1.0-4.8BPaulding County HospitalComment on above:Performed By: #### .Automated Diff ####[address] [address]Mrpgbipidlx/100 WBC (Bld)11.5 %Low27.2-40.8BP[facility] Comment on above:Performed By: #### .Automated Diff ####[address] [address]Xwrj Absolute0.8 x10*3/mcLNormal 0.3-1.1BPaulding County HospitalComment on above:Performed By: #### .Automated Diff ####[address] [address]Xwqvkjlgb/100 WBC (Bld)6.4 %Normal4.7-13.9BP[facility] Comment on above:Performed By: #### .Automated Diff ####[address] [address]Pgfsqi Oksldfpg43.0 x10*3/mcLHigh 1.8-7.7BPaulding County HospitalComment on above:Performed By: #### .Automated Diff ####[address] [address]Cnpjuw Auto81.5 %High47.2-70.8BPaulding County HospitalComment on above:Performed By: #### .Automated Diff ####[address] [address]LD Clinical Summaryon 67-04-2661BC Clinical Summary [address] [id number] ED Clinical Summary Person Information Name: Carlos Hagan [facility] Age: 21 Years : 2000 Sex: Male PCP: Jake Jauregui MD Marital Status: Single Phone: Race: White Ethnicity: Not or Language: Sami Visit Reason: Flank pain; Flank pain Acuity: 3 Enc Type: Emergency Med Service: Emergency Medicine Arrival: 01/14/2022 08:25:15 Discharge: 01/14/2022 10:26:00 LOS: 000 02:01 Checkin: 01/14/2022 08:25:15 Checkout: 01/14/2022 10:26:00 Dispo Type: Home or Self Care Address: [address] [place] [address] Provider Notes: Diagnosis: 1:Ureterolithiasis - Left Problems [...] range between ( 27.2 and 40.8 ) Kemper Auto: 6.4 % -- Normal range between [...] range between ( 41.0 and 53.0 ) Kemper Absolute: 0.8 x10 MCH: 26.2 pg -- [...] Visit Final Med List: New Medications [id number], [address] [id number], [phone] ciprofloxacin (Cipro 500 mg oral tablet) 1 Tabs Oral (given by mouth) every 12 hours for 7 Days. Refills: 0. Last Dose: ondansetron (Zofran ODT 4 mg oral tablet, disintegrating) 1 Tabs Oral (given by mouth) 3 times a day as needed nausea/vomiting. Refills: 0. Last Dose: Printed Prescriptions hydrocodone-acetaminophen ([place] 5 mg-325 mg oral tablet) 1 Tabs Oral (given by mouth) every 6 hours as needed as needed for pain for 3 Days. Refills: 0. Last Dose: Medications that have not changed Other Medications diclofenac (diclofenac sodium 75 mg oral delayed release tablet) 1 Tabs Oral (given by mouth) 2 times a day. Refills: 0. Last Dose: diclofenac topical (diclofenac 1% topical gel) 1 Application Topical (on the skin) 4 times a day asneeded pain. Refills: 0. Last Dose: lidocaine topical (lidocaine 5% topical film) 1 Patches Topical (on the skin) every day as needed pain for 10 Days. Refills: 0. Last Dose: tamsulosin (Flomax 0.4 mg oral capsule) 1 Capsules Oral (given by mouth) every day. Refills: 0. L (more content not included)...[facility] HospitalED [facility]-Physicianon 27-45-5866GT Note-PhysicianChief Complaint dx with a kidney stone on [...] quadrants] : [No costovertebral angle tenderness] Skin: [[place], warm, dry, no injury, no rashes] Neuro: [...] discussed with the patient and family present. Reexamination/Reevaluation Patient is resting comfortably in room, no distress. Assessment/Plan 1. Ureterolithiasis - Left WBC is 12.3, labs are otherwise stable. Vitals are stable. CT shows left UVJ stone. Will d/c home w/Rx for [place], Cipro and Zofran and have him follow up w/the urology stone clinic tomorrow for recheck. He was advised to return for any worsening symptoms, inability to tolerate fluids, inability to urinate, fever or other concerns. Ordered: hydrocodone-acetaminophen, 1 tabs, Oral, q6hr, PRN, X 3 days, # 10 tabs, 0 Refill(s), 01/17/22 10:16:00 EDT Orders: ciprofloxacin, 1 tabs, Oral, q12hr, X 7 days, # 14 tabs, 0 Refill(s), 01/21/22 10:17:00 EDT, Pharmacy: [id number] ondansetron, 1 tabs, Oral, TID, PRN, # 12 tabs, 0 Refill(s), Pharmacy: [facility][id number] Discharge Patient Discharge Special Instructions Discharge [...] 01/14/22 08:34 12.3 Hi (more content not included)...NormalUniversity Hospitals Tripoint Medical CenterLipase on 40-24-9313Hymrxr Lvl27 IU/GWtutkg22-14TbwxmbpylUniversity Hospitals Tripoint Medical CenterComment on above:Performed By: #### LIP ####[address] [address]ZO w Culture if Indon 45-06-1959Ixfxc (U)Light-Yellow [facility] HospitalComment on above:Performed By: #### UCI ####[address] [address]Odcprdb Ql (U)NegativeNormalNegOhioHealth Southeastern Medical CenterComment on above: Performed By: #### UCI ####[address] [address]DP Blood2+AbnormalNegOhioHealth Southeastern Medical Center Comment on above:Performed By: #### UCI ####[address] [address]ZX ClarityClearNormBucyrus Community Hospital Comment on above:Performed By: #### UCI ####[address] [address]VD GlucoseNormalNormalNegOhioHealth Southeastern Medical CenterComment on above:Performed By: #### UCI ####[address] [address]IC Leukocyte EsteraseNegative NormalNegOhioHealth Southeastern Medical CenterComment on above:Performed By: #### UCI ####[address] [address]DR NitriteNegativeNormalNegativeUniversity Hospitals Tripoint Medical CenterComment on above: Performed By: #### UCI ####[address] [address]OJ pH5.3Fczwlm1.5 - 7.8BPaulding [facility] Hospital Comment on above:Performed By: #### UCI ####[address] [address]ZX Cazqbpv74 mg/dLNormalNegativeUniversity Hospitals Tripoint Medical CenterComment on above:Performed By: #### UCI ####[address] [address]ZE SourceClean CatchNormal [facility] Medical CenterComment on above:Performed By: #### UCI ####[address] [address]VD Spec Grav 1.963Bqcrie3.003-1.035[facility] Medical CenterComment on above:Performed By: #### UCI ####[address] [address]SF UrobilinogenNormalNormal0.2 - 1.0[facility] Medical CenterComment on above:Performed By: #### UCI ####[address] [address]Rhkdyorpakbj (U) [Mass/Vol]NegativeNormalNegative [facility] Medical CenterComment on above:Performed By: #### UCI ####[address] [address].UA Microscp Aon 83-67-5613KU MucusPresentAbnormalAbsentUniversity Hospitals Tripoint Medical Center Comment on above:Performed By: #### CD:[id number] ####[address] [address]OD RBC Dggap925 /HPFHigh0-5 [facility] CenterComment on above:Performed By: #### CD:[id number] ####[address] [address]NW Squepi Cells Quant<0Beynmw5-92QabyopzjcUniversity Hospitals Tripoint Medical CenterComment on above:Performed By: #### CD:[id number] ####[address] [address]WF WBC Quant1 /HPFNormal0-5BPaulding County HospitalComment on above:Performed By: #### CD:[id number] ####[address] [address].eGFRon 33-27-4156AYZ/1.73 sq M.predicted MDRD (S/P/Bld) [Vol rate/Area]mL/min/{1.73_m2}Normal>=60[facility] Medical CenterComment on above:Result Comment: [facility] Laboratories have implemented the eGFR calculation approach that does not havea coefficient for race and that conforms to [...] maximum of SCr/? or 1 Age = yearsPerformed By: #### EGFR ####[address] [address]Ipehd Metabolic Profileon 50-66-9961Zlkrg gap [Moles/Vol] 19 mmol/LHigh7-17[facility] Medical CenterComment on above:Performed By: #### CD:[id number] ####[address], [place] [address]Pmzwnyy [Mass/Vol]10.1 mg/dLNormal8.5-10.3BP[facility] Comment on above:Performed By: #### CD:[id number] ####[address] [address]Knsknwcj [Moles/Vol]97 mmol/LLow 98-110[facility] Medical CenterComment on above:Performed By: #### CD:[id number] ####[address] [address]UD7 [Moles/Vol]25 mmol/DZoyyjh54-39MxqzokmgaUniversity Hospitals Tripoint Medical CenterComment on above:Performed By: #### CD:[id number] ####[address] [address]Ppaymzbayq [Mass/Vol]1.39 mg/dLHigh0.61-1.24 [facility] CenterComment on above:Performed By: #### CD:[id number] ####[address] [address]Ulhphqk [Mass/Vol]136 mg/iGIclu00-83XnysijecnUniversity Hospitals Tripoint Medical CenterComment on above: Performed By: #### CD:[id number] ####[address] [address]Kagnwcrpq [Moles/Vol]3.6 mmol/LNormal3.4-4.8BPaulding County HospitalComment on above:Performed By: #### CD:[id number] ####[address] [address]Iyrgjs [Moles/Vol]137 mmol/RObjplb233-271RnnscyjyfUniversity Hospitals Tripoint Medical CenterComment on above:Performed By: #### CD:[id number] ####[address] [address]Jqez nitrogen [Mass/Vol]20 mg/dLNormal8-26[facility] CenterComment on above:Performed By: #### CD:[id number] ####[address] [address]Lrjt nitrogen/Creatinine [Mass ratio]14.4 mg/zqWockyy26.0-20.0[facility] Medical CenterComment on above:Performed By: #### CD:[id number] ####[address] [address]JEZ w/ Diffon 12-03-2021 Erythrocyte distribution width (RBC) [Ratio]14.5 %Ukecan02.6-14.8BPaulding County HospitalComment on above:Performed By: #### CBC ####[address] [address]Lmjfotvmio (Bld) [Volume fraction]47.6 %Teufme33.0-53.0[facility] Medical CenterComment on above: Performed By: #### CBC ####[address] [address]Avqmrguqbm (Bld) [Mass/Vol]15.8 g/cPDlrbxv43.5-17.5 [facility] CenterComment on above:Performed By: #### CBC ####[address] [address]QTS (RBC) [Entitic mass]25.4 pgLow27.0-35.0[facility] Medical CenterComment on above: Performed By: #### CBC ####[address] [address]KAON59.2 %Dkpxks15.0-37.0[facility] Comment on above:Performed By: #### CBC ####[address] [address]XCS (RBC) [Entitic vol]76.6 fLLow80.0-100.0[facility] Medical CenterComment on above:Performed By: #### CBC ####[address] [address]Jfgsoxgp649 x10*3/mcLNormal 150-350[facility] CenterComment on above:Performed By: #### CBC ####[address] [address]Lgrxlkuh mean volume (Bld) [Entitic vol]7.2 fLNormal6.7-10.6BPaulding County HospitalComment on above:Performed By: #### CBC ####[address] [address]PYH4.21 x10*6/mcLHigh4.30-5.80[facility] Medical CenterComment on above:Performed By: #### CBC ####[address] [address]SJB42.1 x10*3/mcLHigh4.5-11.0 [facility] CenterComment on above:Performed By: #### CBC ####[address] [address]GT Abdomen Pelvis w/ IV Contraston 46-35-3598HJ Abdomen Pelvis w/ IV ContrastCT abdomen and pelvis with contrast on 12/03/2021 [...] compatible with obstructive uropathy. Radiation Dose Estimate: CTDI(mGy):0.223561 / / / kVp:120.778389 / mAs:0.635265 / / / DLP(mGy- cm):4.475125Bbxf Part: Abdomen CTDI(mGy):30.557580 / / / kVp:140.745536 / mAs:155.996548 / / / DLP(mGy- cm):1611.075180Enrr Part: Abdomen Final Dictated by: Shanda Borges MD Dictated DT/TM: 12.03.2021 3:25 pm Signed by: Shanda Borges MD Signed (Electronic Signature): 12.03.2021 3:38 pm (If Report Is Signed, Electronically Signed in Other Vendor System)Normal [facility] Medical CenterDiff Autoon 61-83-6937Umdg Absolute0.1 x10*3/mcL Normal0.0-0.2BPaulding County HospitalComment on above:Performed By: #### .Automated Diff ####[address] [address]Ngislgvjt/100 WBC (Bld)0.5 %Normal0.0-1.2BP[facility] Comment on above:Performed By: #### .Automated Diff ####[address] [address]Awr Absolute0.0 x10*3/mcLNormal 0.0-0.4BPaulding County HospitalComment on above:Performed By: #### .Automated Diff ####[address] [address]Cjpmzphcidf/100 WBC (Bld)0.1 %Normal0.0-6.1BPaul[facility] Hospital Comment on above:Performed By: #### .Automated Diff ####[address] [address]Nuwgx Absolute1.0 x10*3/mcLNormal 1.0-4.8BPaulding County HospitalComment on above:Performed By: #### .Automated Diff ####[address] [address]Wzoaukkteqn/100 WBC (Bld)6.3 %Low27.2-40.8BP[facility] Comment on above:Performed By: #### .Automated Diff ####[address] [address]Dhqb Absolute0.6 x10*3/mcLNormal 0.3-1.1BPaulding County HospitalComment on above:Performed By: #### .Automated Diff ####[address] [address]Pfzpfsegf/100 WBC (Bld)3.9 %Low4.7-13.9BP[facility] Comment on above:Performed By: #### .Automated Diff ####[address] [address]Ljmalc Tzktisuj55.5 x10*3/mcLHigh 1.8-7.7BPaulding County HospitalComment on above:Performed By: #### .Automated Diff ####[place] [address]Neutro Auto89.2 %High47.2-70.8BPaulding County HospitalComment on above:Performed By: #### .Automated Diff ####[place] [address]ED Clinical Summaryon [id number] Clinical Summary [place] [id number] [place] [address] ED Clinical Summary Person Information Name: Carlos Hagan Janine/[facility] Age: 21 Years : 2000 Sex: Male PCP: Jake Jauregui MD Marital Status: Single Phone: Race: White Ethnicity: Not or Language: Sami Visit Reason: Abdominal pain; Abdominal pain Acuity: 3 Enc Type: Emergency Med Service: Emergency Medicine Arrival: 12/03/2021 12:39:47 Discharge: 12/03/2021 17:48:00 LOS: 000 05:09 Checkin: 12/03/2021 12:39:47 Checkout: 12/03/2021 17:48:00 Dispo Type: Home or Self Care Address: [facility] [place] [address] Provider Notes: History of Present Illness This is a 21-year-old seen today to complaint abdominal pain. ?Patient reports lower abdominal painstarted this morning. ?Progressively getting worse. ?Patient denies any fever sweats chills??vomiting or diarrhea.? Nausea however is present.? This time the patient is otherwise alert on approach. ?Patient exam AB due to tach secondary to the fact he feels he has not had a regular bowel movement subtype.? Patient went to?yezu-pnl-iniyfyb laxatives with minimal?results and?no relief in pain. [...] range between ( 27.2 and 40.8 ) Kemper Auto: 3.9 % -- Normal range between [...] range between ( 41.0 and 53.0 ) Kemper Absolute: 0.6 x10 MCH: 25.4 pg -- [...] ( 0.3 and 1. (more content not included)...NormalUniversity Hospitals Tripoint Medical CenterED Note-Nursingon 85-38-3625JY Note-Nursingd/c after fluids complete. Electronically signed by Wale Moore 12/03/21 16:16 EDTNormalUniversity Hospitals Tripoint Medical CenterED Note-Physicianon 58-51-8436ON Note-PhysicianChief Complaint pt reports lower abdominal pain that started this morning History of Present Illness This is a 21-year-old seen today to complaint abdominal pain. Patient reports lower abdominal pain started this morning. Progressively getting worse. Patient denies any fever sweats chills vomiting or diarrhea. Nausea however is present. This time the patient is otherwise alert on approach. Patientexam AB due to tach secondary to the fact he feels he has not had a regular bowel movement subtype. Patient went to svwp-cgg-hccerpr laxatives with minimal results and no relief [...] 16:02:00 EDT, Pharmacy: [facility]/pharmacy #[id number] hydrocodone-acetaminophen, 1 tabs, Oral, q6hr, PRN, X 3 [...] tabs, 0 Refill(s), 12/13/21 16:02:00 EDT, Pharmacy: [facility][id number] hydrocodone-acetaminophen, 1 tabs, Oral, q6hr, PRN, X 3 [...] Dose: 12/03/21 16:00:00 EDT, Dispense From Location: [facility], 12/03/21 16:00:00 EDT ondansetron, 1 tabs, Oral, q8hr, PRN, X 3 days, # 9 tabs, 0 Refill(s), 12/06/21 16:06:00 EDT, Pharmacy: [facility]/pharmacy #[id number] Post Void Residual Refresh vitals and [...] 1 patches, Topical, Daily, PRN, Not taking [place] 5 mg-325 mg oral tablet, 1 tabs, [...] High Lymph Auto 12/03/21 12:53 6.3 Low Kemper Auto 12/03/21 12:53 3.9 Low Eos Auto 12/03/21 12:53 (more content not included)...NormalUniversity Hospitals Tripoint Medical CenterHep Func Panel on 57-88-2295Ppsdann [Mass/Vol]4.2 g/dLNormal3.2-4.9BPaulding County HospitalComment on above:Performed By: #### LIVER ####[address] [address]Yem Phos61 IU/OXwfhzw94-29 [facility] Medical CenterComment on above:Performed By: #### LIVER ####[address] [address]VEO [Catalytic activity/Vol]27 U/TAibwtd99-59PceaaxfosUniversity Hospitals Tripoint Medical CenterComment on above:Performed By: #### LIVER ####[address] [address]GHC [Catalytic activity/Vol]36 U/ZYgoicc43-35KlmyyslldUniversity Hospitals Tripoint Medical CenterComment on above:Performed By: #### LIVER ####[address] [address]Wrge Direct0.1 mg/dLNormal 0.1-0.5BPaulding County HospitalComment on above:Performed By: #### LIVER ####[address] [address]Gkfm Indirect1.2 mg/dLHigh0.0-1.0[facility] Medical CenterComment on above: Performed By: #### LIVER ####[address] [address]Dbow Total1.3 mg/dLHigh0.3-1.2BPaulding County HospitalComment on above:Performed By: #### LIVER ####[address] [address]Ynfmjgs [Mass/Vol]8.7 g/dLHigh 6.5-8.1BPaulding County HospitalComment on above:Performed By: #### LIVER ####[address] [address]JV w Culture if Indon 34-44-2384Nnzic (U)YellowNormSCCI Hospital Lima SystemComment on above:Performed By: #### UCI ####[address] [address]Suxrezc Ql (U)60 mg/dLAbnormmsNegOhioHealth Southeastern Medical CenterComment on above:Performed By: #### UCI ####[address] [place] [address]GH Blood3+AbnormalNegative [facility] Medical CenterComment on above:Performed By: #### UCI ####[address], [place] [address]JJ Clarity ClearNormBucyrus Community HospitalComment on above:Performed By: #### UCI ####[address], [place] [address]WQ Glucose NormalNormalNegOhioHealth Southeastern Medical CenterComment on above:Performed By: #### UCI ####[address], [place] [address]CA Leukocyte EsteraseNegativeNormalNegMount St. Mary Hospital SystemComment on above:Performed By: #### UCI ####[address] [place] [address]XM NitriteNegativeNormalNegativePromedica Fostoria Community Hospital SystemComment on above:Performed By: #### UCI ####[address] [place] [address]UZ pH6.5Vkneug9.5 - 7.8BKing's Daughters Medical Center Ohio SystemComment on above:Performed By: #### UCI ####[address] [address]MN Eeymcpb09 mg/dLAbnormalNegativeUniversity Hospitals Tripoint Medical CenterComment on above:Performed By: #### UCI ####[address] [address]XN SourceClean CatchNormal [facility] Medical CenterComment on above:Performed By: #### UCI ####[address] [address]OO Spec Grav 1.758Dnlddy2.003-1.035[facility] Medical CenterComment on above:Performed By: #### UCI ####[address] [address]GY UrobilinogenNormalNormal0.2 - 1.0[facility] Medical CenterComment on above:Performed By: #### UCI ####[address] [address]Trulzafbyavu (U) [Mass/Vol]NegativeNormalNegative [facility] Medical CenterComment on above:Performed By: #### UCI ####[address] [address]VaC-8 PCRon 81-47-7526Dulcrdzt in healthcare?UnknownNoProMedica Bay Park Hospital Comment on above:Order Comment: PCR required.Performed By: #### CD:[id number] ####[address] [address]Kwlnr care resident?NoNSouthview Medical CenterComment on above:Order Comment: PCR required.Performed By: #### CD:[id number] ####[address] [address]Rz ICU?[facility] Comment on above:Order Comment: PCR required.Performed By: #### CD:[id number] ####[address] [address]Vcoiudpon status?Not ApplicableNoProMedica Bay Park HospitalComment on above:Order Comment: PCR required.Performed By: #### CD:[id number] ####[facility] [place], [place] [address]QKEG-ZkS-4 (COVID-19) RNA LUCERO+probe Ql (Unsp spec)NegativeNormalNegativeUniversity Hospitals Tripoint Medical Center Comment on above:Order Comment: PCR required.Result Comment: The TOREY? SARS-CoV-2 Assay is a qualitative, multiplex, real-time PCR-based in vitro diagnostic test intended for the detection of SARS-CoV-2 nucleic acid in nasopharyngeal swab (CARPENTER FOREMAN) specimens from individuals suspected of having COVID-19. The TOREY? SARS-CoV-2 Assay detects SARS-CoV-2 viral RNA from nasopharyngeal swab (CARPENTER FOREMAN) samples. SARS-CoV-2 RNA is generally detectable in CARP[employer] specimens during the acute phase of infection. Positive results are indicative of the presence of SARS-CoV-2 RNA; clinical correlation with patient history and other diagnostic information is necessary to determine patient infection status. Positive results do not rule out bacterial infection or co-infection with other viruses. The agent detected may notbe the definite cause of disease. Laboratories within the [facility] and its territories are required to report all positive results to the appropriate public health authorities. Negative results do not preclude SARS-CoV-2 infection and should not be used as the sole basis for patient managementdecisions. Negative results must be combined with clinical observations, patient history, and epidemiological information. The TOREY? SARS-CoV-2 Assay is intended for use on [employer] by trainedclinical laboratory personnel who are specifically instructed and trained in in vitro diagnostic procedures. This Easy-Point SARS-CoV-2 Assay has been modified from the interactive media marketing specialist?s instructions to allow for nasal swab (anterior Nares) collection. An independent bridging study for nasal swab collection was performed by [facility], a [place] laboratory certified to perform high complexity testing EUA - In Vitro Diagnostic Use Under Emergency Use Authorization. This test has not been FDA clearedor approved. This test has been authorized by [...] 564(b) (1) of the Act, 21 U.S.C. ?360bb-3(b)(1),unless the authorization is terminated or revoked sooner. Fact sheet for Health Care Providers: https://www.fda.gov/media/456115/download Fact sheet for Patients: https://www.fda.gov/media/664929/downloadPerformed By: #### CD:[id number] ####[address] [address]ZYDN-ChD-9 (COVID-19) RNA LUCERO+probe Ql (Unsp spec)NoNSouthview Medical CenterComment on above:Order Comment: PCR required.Performed By: #### CD:[id number] ####[address] [address]LREE-KaD-4 (COVID-19) RNA LUCERO+probe Ql (Unsp spec)UnknownNormalUniversity Hospitals Tripoint Medical CenterComment on above:Order Comment: PCR required.Performed By: #### CD:[id number] ####[address] [address]Wkrglprqvrm as defined by CDC?[facility] Comment on above:Order Comment: PCR required.Performed By: #### CD:[id number] ####[address] [address]Dxuykb Care Office/Clinic Noteon [id number] Care Office/Clinic NoteChief Complaint pt c/o covid exposure at work. [...] to Covid-19 should be tested within 3-5 daysafter their last exposure, even if they have [...] just 10 days after your infection. 1. [facility] offers Covid vaccinations. 2. You may go to the website of any of the following grocery store's pharmacies and schedule your vaccine appointment online OR call their pharmacy department to schedule an appointment over the phone: [facility] 3. You may also call your [...] reviewed the patient?s medication list for medication interactions/contraindications and/or for upcoming procedures: [yes or no] [...] No qualifying data available (more content not included)...[facility] HospitalCoV2 Agon 98-64-6452Eumdqgsq in healthcare?NoNSouthview Medical CenterComment on above:Performed By: #### CD:[id number] ####[address] resident?NoNormalUniversity Hospitals Tripoint Medical CenterComment on above:Performed By: #### CD:[id number] ####[address] [address]Fo ICU?NoNSouthview Medical CenterComment on above:Performed By: #### CD:[id number] ####[address] [address]Jaudnwfww status?Not ApplicableNormalUniversity Hospitals Tripoint Medical CenterComment on above:Performed By: #### CD:[id number] ####[address] [address]BDTI-OvI-6 (COVID-19) RNA LUCERO+probe Ql (Unsp spec)NormalNegativeUniversity Hospitals Tripoint Medical CenterComment on above:Result Comment: * Negative (Non-Reactive) * Negative results from patients with [...] considered in the context of a patient?s recentexposures, history and the presence of clinical signs and symptoms consistent with COVID-19. Negative ADDITIONAL INFORMATION: Testing performed on the [employer] 3600 using the SARS-CoV-2 Antigen test. Results are for the identification of SARS-CoV-2 nucleocapsid antigen. The VITROS SARS-CoV-2 Antigen test can detect bothviable and non-viable SARS-CoV-2 material. The VITROS SARS-CoV-2 Antigen test performance depends on antigen load and may not correlate with other diagnostic methods performed on the same specimen. The performance of this test has not been evaluated for use in patients without signs and symptoms ofrespiratory infection. Test results should be considered in the context of all available clinical and diagnostic information, including patient history and other test results. In the [place], the VITROS SARS-CoV-2 Antigen test is only for use under the Food and Drug Administration?s EmergencyUse Authorization. HCP Fact Sheet: https://www.fda.gov/media/924687/download Patient Fact Sheet: https://www.fda.gov/media/885910/downloadPerformed By: #### CD:[id number] ####[address] [address]HSAJ-JfP-8 (COVID-19) RNA LUCERO+probe Ql (Unsp spec)NoNormalUniversity Hospitals Tripoint Medical CenterComment on above:Performed By: #### CD:[id number] ####[address] [address]IWSE-NiU-3 (COVID-19) RNA LUCERO+probe Ql (Unsp spec)UnknownNormalUniversity Hospitals Tripoint Medical CenterComment on above:Performed By: #### CD:[id number] ####[address] [address]Goitrnlijti as defined by CDC?YesNormalUniversity Hospitals Tripoint Medical CenterComment on above:Performed By: #### CD:[id number] ####[address] [address]Uxhrkt Care Office/Clinic Noteon 84-06-4516Dzovlp Care Office/Clinic NoteChief Complaint pt states drainage, stuffy nose, x [...] the past. Reports that he took 1 doseof Benadryl this morning so he could get [...] does not need to quarantine. May use axvz-nwa-epnbbqe Tylenol and Motrin for pain relief. May use ocsq-gqk-wlgcihj Chloraseptic throat spray, lozenges, cool or warm [...] by the health department. Do not go outinto the public. Everyone in your household should also quarantine. Go to the emergency room for worsening symptoms such as difficulty breathing or increased shortnessof breath. Follow-up with primary care provider should symptoms persist beyond 7-10 days. Go to emergency department for any change in or worsening of symptoms. Ordered: SARS-CoV-2 Antigen Medical Decision Making Patient is well and nontoxic-appearing upon evaluation. Vital signs are stable. Reviewed assessmentand plan of care with patient. Patient verbalized understanding and agreed with plan. No further questions or concerns upon discharge. Chronic conditions NOT treated during this visit that affected my overall medical decision making: [] Treatment plans discussed but not opted for at this time: [] Prescribed medication that requires intensive monitoring for toxicity: [] I have reviewed the patient?s medication list for medication interactions/contraindications and/or for upcoming procedures: [yes] Time Spent with the Patient I have personally spent [12] minutes on this date, directly related to today's patient visit, including pre and post visit work, for this date of service. Time listed does not include time spent on separately billable services. Problem List/Past Medical History Ongoing No c (more content not included)...[facility] Orthopedic Office/Clinic Noteon [id number] Office/Clinic NoteChief Complaint Chief Complaint f/u Lt shoulder. History of Present Illness HISTORY: This 20 year old male presents to the office with complaints of left shoulder pain over a period oftime. He went to [facility] for treatment on 01-29-21. Reports to injury 1 year prior. Pain after catching a wooden pallet from falling. Pain has remained. He received treatment from PCP who referred him to physical therapy. Patient did not follow recommendations. He has been having continued pain posterior shoulder and neck. Denies any new accidents or injuries. Denies any bruising, swellingor deformity. PAIN: Location: left shoulder- posterior Onset [...] strength, sensation, reflexes as per musculoskeletal exam HEMATOLOGICAL/LYMPHATIC: No lymphadenopathy upper or lower extremities MUSCULOSKELETAL: [...] Impingement positive Speeds test positive Valentin positive Burlington's negative Liftoff negative Crossover negative Fall back [...] with patient. Patient was encouraged to ask questionsand all questions answered to their satisfaction. The [...] lining, possible ulcer formation, and potential adverse ef fects on liver or kidneys. Discussed risks, benefits, alternatives of surgery at length. COUNSELING: Discussed diagnosis, treatment plan, options and treatment as well as benefits, outcomes, risks, oft (more content not included)...[facility] HospitalComment on above:Order Comment: no showOrthopedic Office/Clinic Noteon [id number] Office/Clinic NoteChief Complaint Manager Social Responsibility- left shoulder/ neck pain History of Present Illness HISTORY: This 20 year old male presents to the office with complaints of left shoulder pain over a period oftime. He went to [facility] for treatment on 01-29-21. Reports to injury 1 year prior. Pain after catching a wooden pallet from falling. Pain has remained. He received treatment from PCP who referred him to physical therapy. Patient did not follow recommendations. He has been having continued pain posterior shoulder and neck. Denies any new accidents or injuries. Denies any bruising, swellingor deformity. PAIN: Location: left shoulder- posterior Onset date: months Character/Quality: Throbbing, aching, sharp stabbing Severity: 5 out of 10 Timing: Constant Aggravating factors: Use Relieving factors: Rest, ice Review of Systems The patient's review of systems, past medical history/medications/allergies were reviewed and discussed with the patient. [...] strength, sensation, reflexes as per musculoskeletal exam HEMATOLOGICAL/LYMPHATIC: No lymphadenopathy upper or lower extremities MUSCULOSKELETAL: [...] Impingement positive Speeds test positive Valentin positive Burlington's negative Liftoff negative Crossover negative Fall back [...] BID, # 60 tabs, 0 Refill(s), [id number] diclofenac topical, 1 joshua, Topical, QID, PRN, # 100 g, 0 Refill(s), [id number] Referral to Physical Therapy 2. Strain [...] with patient. Patient was encouraged to ask questionsand all questions answered to their satisfaction. The importance of compliance, as well as the ri (more content not included)... 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 He went to [facility] for treatment on 01-29-21. PAIN: Location:left shoulder [...] 48 hrs. Make a follow-up appointment with [facility]. Go to the emergency department for any worsening symptoms such as numbness/tingling to the extremity, or any other concerns. Problem List/Past Medical History Ongoing No qualifying data Historical No qualifying data Medications lidocaine 5% topical film, 1 patches, Topical, Daily, PRN Allergies No Known Allergies Social History Tobacco Never (less than 100 in lifetime) Use:. Electronically Signed by Jesica Milton 02/11/21 13:31 EDT Electronically Signed by Jesica Milton 02/11/21 13:41 EDT Electronically Signed by Jesica Milton 02/17/21 11:44 EDT Candice Brambila PA-C [facility] ColumbusguidoMercy Health West HospitalComment on above:Order Comment: no show Vital Signs Date TimeVital SignValuePerforming HbyzbbkioPnxcxdgn11-11-7169 13:33-0400Body .42 cmCoreen Maurer APRN Work Phone: [facility]10-06-2025 13:33-0400 Body mass index (BMI) [Ratio]36.1 kg/z0XtdbdmajCoreen Maurer TECHNOLOGY PROJECT MANAGER Work Phone: [phone]10-06-2025 13:33-0400 Body mermmbxzezw27.5 [degF]Croeen Maurer TECHNOLOGY PROJECT MANAGER Work Phone: [phone]05[facility]10-06-2025 13:33-0400 Body aeybqg497.28 kgCoreen Maurer TECHNOLOGY PROJECT MANAGER Work Phone: [phone]10-06-2025 13:33-0400 Diastolic blood afnhmust69 mm[Hg]Coreen Maurer TECHNOLOGY PROJECT MANAGER Work Phone: 1([phone])[address] [place], [place] 4184810-06-2025 13:33-0400 Heart rate72 /minCoreen Vaughnacher TECHNOLOGY PROJECT MANAGER Work Phone: [phone])[address] [place], [place] 4184810-06-2025 13:33-0400 Respiratory rate16 /Adore Maurer TECHNOLOGY PROJECT MANAGER Work Phone: [phone]10-06-2025 13:33-0400 SaO2% (BldA) [Mass fraction]98 %Coreen Addisonjean marie TECHNOLOGY PROJECT MANAGER Work Phone: [phone]10-06-2025 13:33-0400 Systolic blood jielmzij333 mm[Hg]Coreen Addisonjean marie TECHNOLOGY PROJECT MANAGER Work Phone: 1([phone])355-[address] [place], [place] 8704407-31-2025 13:54-0400 Body .42 Anna Velasquez MD Work Phone: 1(902)817-[address] [place], [place] 5051007-31-2025 13:54-0400 Body mass index (BMI) [Ratio]35.2 kg/h9IqkzseJakob Velasquez MD Work Phone: [phone] [place], [place] 5051007-31-2025 13:54-0400 Body yxsgvbpypyn55.2 [degF]Jakob Velasquez MD Work Phone: [phone] [place], [place] 5051007-31-2025 13:54-0400 Body .1 kgJakob Velasquez MD Work Phone: [phone]07-31-2025 13:54-0400 Diastolic blood oczgschd84 mm[Hg]Jakob Velasquez MD Work Phone: 1(684)[address] [place], [place] 1123907-31-2025 13:54-0400 Heart rate90 /Owen Velasquez MD Work Phone: 1(591)[address] [place], [place] 1123907-31-2025 13:54-0400 SaO2% (BldA) [Mass fraction]98 %Jakob Velasquez MD Work Phone: 1(480)[address] [place], [place] 1123907-31-2025 13:54-0400 Systolic blood mm[Hg]Jakob Velasquez MD Work Phone: 1(908)[address] [place], [place] 1123906-27-2025 11:07-0400 Body zxedbn207.42 cmSbess Velasquez MD Work Phone: 1(366)[address] [place], [place] 1123906-27-2025 11:07-0400 Body mass index (BMI) [Ratio]33.7 kg/j1NnommqJakob Velasquez MD Work Phone: 1(437)[address] [place], [place] 1123906-27-2025 11:07-0400 Body jwbandmizfa26.7 [degF]Jakob Velasquez MD Work Phone: 1(349)[address] [place], [place] 1123906-27-2025 11:07-0400 Body zstuzs811.11 kgJakob Velasquez MD Work Phone: 1(971)[address] [place], [place] 1123906-27-2025 11:07-0400 Diastolic blood fvyzzbiv91 mm[Hg]Jakob Velasquez MD Work Phone: 1(023)[address] [place], [place] 1123906-27-2025 11:07-0400 Heart rate84 /Owen Velasquez MD Work Phone: 1([phone])[address] [place], [place] 1123906-27-2025 11:07-0400 SaO2% (BldA) [Mass fraction]97 %Jakob Velasquez MD Work Phone: 1(650)[address] [place], [place] 1123906-27-2025 11:07-0400 Systolic blood audnijsv027 mm[Hg]Jakob Velasquez MD Work Phone: 1([phone])[address] [place], [place] 1123906-26-2025 17:50-0400 Diastolic blood xrlkruwz38 mm[Hg]Jakob Velasquez MD Work Phone: 1(841)[address] [place], [place] 1123906-26-2025 17:50-0400 Systolic blood tjunmzhy957 mm[Hg]Jakob Velasquez MD Work Phone: 1(091)[address] [place], [place] 1123906-26-2025 17:49-0400 Heart rate79 /Owen Velasquez MD Work Phone: 1(231)[address] [place], [place] 1123906-26-2025 17:49-0400 Respiratory rate20 /Owen Velasquez MD Work Phone: 1(364)[address] [place], [place] 1123906-26-2025 14:58-0400 Body hlolbi089.42 Anna Velasquez MD Work Phone: 1(012)[address] [place], [place] 1123906-26-2025 14:58-0400 Body onuumjmnknj00.9 [degF]Jakob Velasquez MD Work Phone: 1([phone])[address] [place], [place] 1123906-26-2025 14:58-0400 Body naphdn548.86 kgJakob Velasquez MD Work Phone: 1(611)[address] [place], [place] 1123906-26-2025 14:58-0400 SaO2% (BldA) [Mass fraction]99 %Jakob Velasquez MD Work Phone: 1(103)[address] [place], [place] 1123906-17-2025 14:06-0400 Body jlktky465.42 Anna Velasquez MD Work Phone: 1(729)[address] [place], [place] 1123906-17-2025 14:06-0400 Body mass index (BMI) [Ratio]34.2 kg/c9JsszxnJakob Velasquez MD Work Phone: 1(616)[address] [place], [place] 1123906-17-2025 14:06-0400 Body ghxiqnfiezt51.3 [degF]Jakob Velasquez MD Work Phone: 1(533)[address] [place], [place] 1123906-17-2025 14:06-0400 Body efbqin230.93 kgJakob Velasquez MD Work Phone: [facility]06-17-2025 14:06-0400 Diastolic blood qcytqunw17 mm[Hg]Jakob Velasquez MD Work Phone: [facility]06-17-2025 14:06-0400 Heart oapw220 /Owen Velasquez MD Work Phone: [facility]06-17-2025 14:06-0400 SaO2% (BldA) [Mass fraction]97 %Jakob Velasquez MD Work Phone: [facility]06-17-2025 14:06-0400 Systolic blood eunmzscr593 mm[Hg]Jakob Velasquez MD Work Phone: [facility]06-03-2025 16:41-0400 Body lfguaq762.42 cmMer[facility]06-03-2025 16:41-0400Body mass index (BMI) [Ratio]34 kg/w4RgticczdeMercy Health – The Jewish Hospital06-03-2025 16:41-0400Body lrvolfezlcf49 [degF][facility]06-03-2025 16:41-0400Body vrcbdy452.02 kgMercy Health – The [facility]06-03-2025 16:41-0400Diastolic blood krzalgcs12 mm[Hg][facility] 01-15-2025 16:41-0400Heart rate79 /[facility] 01-15-2025 16:41-0400Respiratory rate16 /[facility] 01-15-2025 16:41-2529CxU0% (BldA) [Mass fraction]96 %[facility]06-03-2025 16:41-0400Systolic blood zpejalnq129 mm[Hg][facility]01-05-2024 16:40-0500Body rfwevk947.42 Pat Vizcaino Other [place] [employer] Other 01-05-2024 16:40-0500Body mass index (BMI) [Ratio] 30.55 kg/x6BcuhgqBrigette Vizcaino Other [employer] Other 01-05-2024 16:40-0500Body owtohbndwvk04.3 [degF]Brigette Vizcaino Other [employer] Other 01-05-2024 16:40-0500Body .05 kgPaklaudia Vizcaino Other [employer] Other 01-05-2024 16:40-0500Diastolic blood vpqxlpri88 mm[Hg] Brigette Perezmond Other [employer] Other 01-05-2024 16:40-0500Respiratory rate18 /minBrigette Vizcaino Other [facility] Other 01-05-2024 16:40-2751PrI9% (BldA) [Mass fraction]97 % Brigette Vizcaino Other [employer] Other 01-05-2024 16:40-0500Systolic blood mm[Hg] Brigette Vizcaino Other [employer] Other 05-02-2023 16:40-0400Body gwicma834.42 cmAmichelle Mendes Other [employer] Other 05-02-2023 16:40-0400Body fvfzertadnx07.6 [degF]Joana Mendes Other [employer] Other 05-02-2023 16:40-0400Diastolic blood mm[Hg] Joana Mendes Other [employer] Other 05-02-2023 16:40-0400Respiratory rate18 /minJoana Mendes Other [facility] Other 05-02-2023 16:40-9530XnT4% (BldA) [Mass fraction]97 % Joana Mendes Other [facility] [employer] Other 05-02-2023 16:40-0400Systolic blood qnelmxlq550 mm[Hg] Joana Mendes Other [facility] Other 04-07-2022 11:25-0400Blood Pressure LocationCatrachito Esposito Jr. [address] [place], [place] 8704904-07-2022 11:25-0400Body kqxffioenaz94.42 [degF]Catrachito Esposito Jr. [address] [place], [place] 8704904-07-2022 11:25-0400 BP/Pulse Patient PositionCatrachito Esposito Jr. [address] [place], [place] 8704904-07-2022 11:25-0400 Diastolic blood mm[Hg]Catrachito Esposito Jr. [address] [place], [place] 8704904-07-2022 11:25-0400Heart rate67 /Sophia Esposito Jr. [address] [place], [place] 8704904-07-2022 11:25-0400Mean blood mm[Hg]Catrachito Esposito Jr. [address] [place], [place] 8704904-07-2022 11:25-0400 Respiratory rate16 /Sophia Esposito Jr. [address] [place], [place] 8704904-07-2022 11:25-9009QaL5% (BldA) [Mass fraction]97 %Catrachito Esposito Jr. [address] [place], [place] 8704904-07-2022 11:25-0400 Systolic blood mm[Hg]Catrachito Esposito Jr. [address] [place], [place] 8704904-07-2022 10:09-0400Blood Pressure LocationCatrachito Esposito Jr. [address] [place], [place] 8704904-07-2022 10:09-0400Body sxupbxifqwd09.88 [degF]Catrachito Esposito Jr. [address] [place], [place] 8704904-07-2022 10:09-0400 BP/Pulse Patient PositionCatrachito Esposito Jr. [address] [place], [place] 8704904-07-2022 10:09-0400 Diastolic blood qkcxyued55 mm[Hg]Catrachito Esposito Jr. [address] [place], [place] 8704904-07-2022 10:09-0400Heart rate68 /Sophia Esposito Jr. [address] [place], [place] 8704904-07-2022 10:09-0400Mean blood whuowdqj00 mm[Hg]Catrachito Esposito Jr. [address] [place], [place] 8704904-07-2022 10:09-0400 Respiratory rate14 /Sophia Esposito Jr. [address] [place], [place] 8704904-07-2022 10:09-6805MuB2% (BldA) [Mass fraction]98 %Catrachito Esposito Jr. [address] [place], [place] 8704904-07-2022 10:09-0400 Systolic blood mm[Hg]Catrachito Esposito Jr. [address] [place], [place] 8704904-07-2022 10:05-0400Blood Pressure LocationCatrachito Esposito Jr. [address] [place], [place] 8704904-07-2022 10:05-0400Body uwnmcriroty84.88 [degF]Catrachito Esposito Jr. [facility]04-07-2022 10:05-0400 Diastolic blood ofsfdsgh25 mm[Hg]Catrachito Esposito Jr. [address] [place], [place] 8704904-07-2022 10:05-0400Heart rate74 /Sophia Esposito Jr. [address] [place], [place] 8704904-07-2022 10:05-0400 Respiratory rate12 /Sophia Esposito Jr. [address] [place], [place] 8704904-07-2022 10:05-7773TwY1% (BldA) [Mass fraction]97 %Catrachito Esposito Jr. [address] [place], [place] 8704904-07-2022 10:05-0400 Systolic blood mm[Hg]Catrachito Esposito Jr. [address] [place], [place] 8704904-07-2022 09:50-0400 Respiratory rate20 /Sophia Esposito Jr. [address] [place], [place] 8704904-07-2022 09:45-0400 Respiratory rate13 /Sophia Esposito Jr. [address] [place], [place] 8704904-07-2022 09:36-0400Body oorwtdbpfsf62.16 [degF]Catrachito Esposito Jr. [facility]04-07-2022 09:30-0400 Respiratory rate17 /Sophia Esposito Jr. [address] [place], [place] 8704904-07-2022 07:16-0400Mean blood surxsmma16 mm[Hg]Catrachito Esposito Jr. [address] [place], [place] 8704904-07-2022 07:15-0400Body idwsloqbyfc08.88 [degF]Catrachito Esposito Jr. [facility]04-07-2022 07:15-0400Heart rate80 /Sophia Esposito Jr. [facility] Encounters Encounter DateEncounter TypeCare ProviderFacilityStart: 05-20-2025 End: 34-08-3447ckvurbsfhtYplodivmSyl Maurer APRN Work Phone: [facility] Work Phone: Start: 05-20-2025 End: 80-37-6720Cbtpoin encounter procedureMarlee Wells TECHNOLOGY PROJECT MANAGER-[facility] Work Phone: Start: 03-14-2025 End: 68-10-5550pcmvudtqjaMweodc E Ross MD Work Phone: [facility] Work Phone: Start: 03-14-2025 End: 92-18-9899Lrwsgol encounter procedureCoreen Maurer TECHNOLOGY PROJECT MANAGER [employer] G[employer]-[facility] Work Phone: Start: 03-14-2025 End: 37-43-6121jucileazpeXPUEREJQDoctors Hospitaltart: 83-31-4132Ymavgepqrs and management of inpatientMELINDA [facility]: 90-86-8185Jrymtrzgxp and management of inpatient MARYSE [facility]: 91-18-3746biyuvjxuvf MARYSEDoctors Hospitaltart: 02-27-2025 End: 97-22-3630Yfrsldqclf and management of inpatientABHISHEK [facility]: 02-13-2025 End: 42-20-0220cnmomkevktXOFKSCherrington Hospitaltart: 02-12-2025 End: 91-68-8171Twsygdsfhc Wilson Maurer NP Work Phone: Referring PhysicianComment on above:Pre-excitation syndrome (Primary Dx)Start: 02-08-2025 End: 09-11-2356bbpzkxamtwHrvvan E Ross MD Work Phone: [facility] Work Phone: Start: 02-08-2025 End: 44-47-0776Xxfulxy encounter procedureCoreen Maurer APRN [facility] Work Phone: Start: 81-41-5069Vws-patient / Non-visitCatherine Mundo [facility] Work Phone: Start: 02-07-2025 End: 68-72-0633Soyhqseps department patient visitSbess Velasquez MD Work Phone: [phone]-Kctswewln Room Work Phone: Start: 01-29-2025 End: 01-72-3037Glnjexw encounter procedureCoreen Maurer APRN [facility] Work Phone: Start: 01-15-2025 End: 19-60-6501ppbleledksKnmckrgmr [facility] Work Phone: Start: 01-15-2025 End: 65-20-7334Whhrrwy encounter procedureAtrium Health [facility] Physician [facility] Work Phone: Start: 12-21-2024 End: 42-55-4079Oajytx Av Murcia MD Work Phone: cardiologyComment on above:Nvxye-Jxechnfmq-Oifgq (WPW) syndrome (Primary Dx)Start: 12-19-2024 End: 80-47-6730axpaptezdjUIOEFAPP [facility]: 11-15-2024 End: 29-66-1005xmcudbfypgYENRX [facility]: 08-08-2024 End: 56-93-9697bmanopotmaDMY STAFFFacility:[facility] Start: 08-19-2023 End: 44-48-6853Atzregee ReferredNP-C Brigette Vizcaino Work Phone: [facility] [place] Work Phone: start: 08-19-2023 End: 65-72-8934imqbunofmuYwjorv Dymond Other [facility] [employer] Other Start: 18-22-4377Huecae outpatient visit 15 minutes Brigette CharisFPG Urgent Care ClydeStart: 08-03-2023 End: 70-80-8606prtivcmlymAzgfif E. RossFacility:[facility] BellevueStart: 05-04-2023 End: 89-24-5372gdqjrskybiDvkfof E. RossFacility:[facility] BellevueStart: 05-03-2023 ambulatorySamuel RossFacility:[facility] BellevueStart: 02-24-2023 End: 64-48-1812efutynctlvLQNV Lauren Bailey Work Phone: [facility] Work Phone: Start: 02-24-2023 End: 23-82-3626Jwctnwi encounter procedureMARY Gomez Work Phone: [facility] Work Phone: Start: 12-14-2022 End: 22-12-6295hxjhfqtjctZjynq Keller Other [facility] [employer] Other Start: 67-66-1227Fnollh outpatient visit 25 minutes Joana Pantoja [facility] ClydeStart: 01-14-2022 End: 62-57-2285Ifaowzahj department patient visitTAMMY Beth [facility]: 12-03-2021 End: 11-90-5856Tkubhbdmd department patient visitJAKE JAUREGUI [facility]: 11-19-2021 End: 38-85-0965Eclpvgkwg to same day surgery [facility] Start: 11-16-2021 End: 36-92-1931MwgxvgfuxAyjhyq L Smith [facility] Start: 04-12-2018 End: 97-86-7841Cfqpetc encounterJAKE JAUREGUIFacility:H1 Procedures DateProcedureProcedure DetailPerforming ClinicianStart: 14-99-7317Ncasb Strep (POC)Croeengeeta Maurer APRN Work Phone: Start: 44-36-6102Medrsp-up visitFollow-upSAMAJean Marie BRENDA Start: 22-35-2818D-ray of right ankleAPRN Tejal Patricia Work Phone: Start: 98-45-6602NrmuottxeeZuiamg Smith Jr. start: 14-79-9138Frbtwykr of urethraCatrachito Esposito Jr. start: 50-28-4323Thdlahxnkczhwndiu with dilation of urethral strictureCatrachito Esposito Jr. Plan of Treatment DateCare ActivityDetailAuthorStart: 30-56-8903Thapowppe vaccinationMetairie ClinicStart: 80-95-2395Sghntyo referralDay[facility] Work Phone: Start: 01-24-2025 End: 42-93-5984esxlkyfxlv41/12/2025 11:15 AM EDT Procedure Cardiology [address] [place] [address] Dx: WPW (Disak-Fqeewnjqz-Ndykr) CardiologyComment on above:Dx: WPW (Huzki-Hlkbhhpej-Ngjpf)Start: 01-24-2025 End: 80-00-6499Mqqjpfc encounter procedureCardiologyComment on above:Dx: WPW (Oaecp-Pgplzfomy-Mdiui)Start: 96-22-8645Facfh-19 Vaccine ( season) Covid-19 Vaccine ()[facility] ClinicStart: 96-38-3900Ttxycvoiq B Vaccine (1 of 3 - 19+ 3-dose series)Hepatitis B Vaccine (1 of 3 - 19+ 3-dose series)[facility] Centertart: 86-51-8663Yhhgz microalbumin profileDTaP,Tdap,Td Vaccine (1 - Tdap)[facility] Centertart: 15-60-5388Jneaugp ScreeningAnxiety ScreeningUniversity Hospitals Portage Medical Centertart: 56-00-3119Cbxwpuubcf ScreeningDepression ScreeningUniversity Hospitals Portage Medical Centertart: 26-23-1352Wylryylrr C screeningHepatitis C ScreeningUniversity Hospitals Portage Medical Centertart: 25-38-0132QTE screeningHIV ScreeningUniversity Hospitals Portage Medical Centertart: 21-42-8482SVG Vaccine (1 - Male 3-dose series)HPV Vaccine (1 - Male 3-dose series)[facility] Cent[facility]art: 60-09-2602Hdqc To Adult Transition Annual AssessmentPeds To Adult Transition Annual AssessmentUniversity Hospitals Portage Medical Centertart: 88-87-1233Takx To Adult Transition Initial DiscussionPeds To Adult Transition Initial DiscussionMercy Health St. Rita's Medical Centeramydia trachomatis DNA [Presence] in Unspecified specimen by LUCERO with probe detectionMer[facility] Health – [facility] Hospital End: 15-71-7316IPR COMPLETEECG COMPLETE ECG Routine Llbuq-Xqwvcyurn-Vmzak (WPW) syndrome 1 Occurrences starting 12/21/2024 until 12/21/2025[facility] Work Phone: comment on above:1 Occurrences starting 12/21/2024 until 12/21/2025Neisseria gonorrhoeae DNA [Presence] in Unspecified specimen by LUCERO with probe detectionMercy Health – The Jewish HospitalPatient EducationNear Fainting (DC)[facility] Work Phone: Patient referralFulton County Health Center [facility]tr Work Phone: Trichomonas vaginalis DNA [Presence] in Unspecified specimen by LUCERO with probe detectionMercy Health – The Jewish Hospital Payers DatePayer CategoryPayerPolicy [id number] Health Insurance [id number] Health Insurance [id number] [id number] [id number] Social History DateTypeDetailFacilityStart: 70-36-4993Dnbedsk smoking statusLight tobacco smoker (finding)[facility] CenterStart: 74-59-2890Csr Assigned At BirthMaleFWood County Hospital CenterStart: 15-58-2181Wfq Assigned At BirthMale [facility] HospitalTobacco smoking status NHISTobacco smoking consumption unknownUniversity Hospitals Portage Medical Centertart: 65-49-6056Lrw assigned at birthNot on fileUniversity Hospitals Portage Medical Centertart: 77-61-7748ZewIynp (finding)[facility] Hospitaltart: 36-59-5363Qyuyzgh smoking status NHISSmokes tobacco daily (finding)[facility] Hospitaltart: 67-48-2371Ymxwcvg of Social functionCleUniversity Hospitals Conneaut Medical Centerional Score (1-100), lower number is lower risk63 [facility] Goals DatePatient GoalDesired Activity/StatePersonal health goal Clinical Notes 04-22-2021 to 03-14-2025 Note Date & HhwwNpdfOcilgcav09-38-2198 Evaluation note* Diagnosis Onset Date Resolution Status Admit Date Generalized anxiety disorder acuteJuly 2024 1:52pmHypertensionacuteJuly 2024 1:52pmWPW (Gfqqi-Wyndokcpo-Wgltg syndrome)acuteJuly 2024 1:52pm [facility] Work Phone: 1(640) 716-109107-31-2025 NoteCardiac Electrophysiology Consultation Reason for Consult: SVT, accessory pathway, WPW Referring [employer] Artillery Crewmember/PCP: No ref. provider found HPI: Carlos is a very pleasant 24-year-old gentleman who has no prior structural heart disease along with no history of hypertension, hyperlipidemia or diabetes. Notably, very recently in October 2024 he had developed chest discomfort after heavy exertion and then underwent an EKG which showed WPW. He was then referred to to you in cardiology and now is being kindly referred to me for consideration of catheter ablation. Of note, based on his recollection, he reports that he had 1 episode of syncope but it was thought to be due to hypoglycemia. However, considering his history and presence of a WPW pattern, it is possible that this might have been pathway related syncope. Electrophysiology History: WPW, accessory pathway Past Medical History: Diagnosis Date Hypertension History reviewed. No pertinent surgical history. Current Outpatient Medications Medication Sig Dispense Refill acetaminophen (Tylenol) 325 mg tablet Take 2 tablets (650 mg) by mouth every 6 (six) hours if needed for mild pain (1-3 pain score) ((1-3 out of 10)) for up to 10 days. amLODIPine (Norvasc) 5 mg tablet Take 1 tablet (5 mg) by mouth in the morning. 30 tablet 11 busPIRone (Buspar) 10 mg tablet Take 1 tablet by mouth every 6 (six) hours during the day. hydrOXYzine HCL (Atarax) 25 mg tablet Take 1 tablet by mouth Twice daily at 6am and 6pm. No current facility-administered medications for this visit. Physical Examination: BP 130/80 (BP Location: Left arm, Patient Position: Sitting, BP Cuff Size: Adult) Pulse 90 Ht 1.854 m (6' 1 ) Wt 118 kg (260 lb) SpO2 98% BMI 34.30 kg/m??? Gen: No acute distress Neck: No LAD, No JVD elevation CVS: S1, S2 normal, no rubs, no murmurs Pulm: CTABL Abdomen: NTND Neuro: AAO x 3 Extremity: No edema Psych: Mood and affect is normal .labs Lab Results Component Value Date WBC 8.29 02/28/2025 HGB 14.1 02/28/2025 HCT 43.7 02/28/2025 MCV 79.9 (L) 02/28/2025 PLT 236 02/28/2025 Lab Results Component Value Date GLUCOSE 104 (H) 02/28/2025 CALCIUM 8.7 02/28/2025 NA 137 02/28/2025 K 4.2 02/28/2025 CO2 26 02/28/2025 CL 107 02/28/2025 BUN 12 02/28/2025 CREATININE 1.03 02/28/2025 EKG: Encounter Date: 02/27/25 ECG 12 lead Result Value Ventricular Rate 65 Atrial Rate 65 NH Interval 136 QRS DURATION 104 QT Interval 406 QTC CALCULATION(BAZETT) 422 P Hallam 60 R-Hallam 18 T Wave Hallam 9 Impression Normal sinus rhythm Normal ECG When compared with ECG of 27-FEB-2025 16:01, No significant change was found Confirmed by Lisa MURRAY, L.S. (2) on 02/28/2025 12:46:49 PM I personally reviewed this EKG and assessed the findings myself No echocardiogram results found for the past 12 months No echocardiogram results found for the past 14 days I have personally reviewed the echocardiogram images myself Based on Propagation map: Assessment and Plan: Carlos is a 24-year-old gentleman who was seen in the clinic today after his recent ablation. During his catheter ablation, he was noticed to have mid septal to posteroseptal accessory pathway. During his ablation, we were able to mitigate the preexcitation pattern with radiofrequency within 5 seconds without any concomitant damage to the conduction system. On the office EKG done today, he is doing well and does not have any further evidence of manifest preexcitation. Given the reassuring nature of this, we would follow him on an as-needed basis. As always, it is a pleasure to partake in the shared care of our patients. Maryse Bae MD, ScM, Msc Cardiac Electrophysiology Email: [email or web address] Health Institute07-17-2025 Note02/28/25 1029 Admission Assessment Questions Verify insurance with patient Yes Do you understand medical disease or what brought you into the hospital? Yes Who is your current PCP? Patient agreeable to establishing care at [facility], message sent Can I schedule a follow up appointment for you at the time of discharge? Yes Does patient qualify for Complex Care Management Enrollment? No Do you understand why you are taking your current medications? Yes Are you taking your medications as prescribed? Yes Did patient provide teach back? No Pharmacy Bedside Delivery Status Interested Does the patient have a top case assembler assigned to them through their insurance? No Living Arrangement (Current/Prior to Hospitalization) Private residence Does the patient have history of HHC or SNF? No Assistive Device Not applicable Patient's goal for discharge Home Was patient reminded that goal for discharge is 11am? No Does the patient have transportation at discharge? Yes Type of Residence Private residence Is PT/OT appropriate? No Is PT/OT ordered? No Is SW consult appropriate? No Is SW consult ordered? No Do you understand the benefits of MyChart? Yes Were you able to send link and activate MyChart? MyChart already active Assessment completed with patient over the phone. 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 Procedure Details: The patient was seen in the preoperative area. The risks, benefits, complications, treatment options, non-operative alternatives, expected recovery and outcomes were discussed with the patient. The possibilities of reaction to medication, pulmonary aspiration, injury to surrounding structures, bleeding, recurrent infection, the need for additional procedures, failure to diagnose a condition, and creating a complication requiring transfusion or operation were discussed with the patient. The patient concurred with the proposed plan, giving informed consent. The site of surgery was properly noted/marked if necessary per policy. The patient has been actively warmed in preoperative area. Preoperative antibiotics are not indicated. Venous thrombosis prophylaxis are not indicated. Findings: -- SVT ablation Noticed to have baseline manifest pre-excitation. A-V Accessory pathway mapped to the postero-septal region, Right side. Upon Open window mapping, we noticed that point of A-V fusion with maximum pre-excitation and Delta wave disappeared with 1st ablation lesion in less than 3 seconds - Post ablation Para Hisian pacing done-- that showed AV erin-AV erin response Adenosine 12 mg x 1 dose- no evidence of A-V conduction - Waited for full 30 minutes and no preexcitation seen Full note to follow Recommendations: Bed Rest x 3 hrs Aspirin 81 mg every day for 2 weeks Plan to discharge tomorrow am Please obtain EKG tomorrow morning Complications: None; patient tolerated the procedure well. Disposition: PACU - hemodynamically stable. Condition: stable Maryse Bae Cell: [id number] Health Institute07-16-2025 NotePatient: Carlos Hagan Procedure Information Date/Time: 02/27/25 1230 Procedure: Ablation SVT WPW [email or web address] FLOOR CLEANER 1 / [facility] (Cath) Providers: Maryse Bae MD Clinical information reviewed: Allergies Meds Physical Exam Airway Mallampati: II TM distance: >3 FB Neck ROM: full Cardiovascular - normal exam Rhythm: regular Rate: normal Dental Pulmonary - normal exam Neurological Abdominal - normal exam Anesthesia Plan ASA 2 regional (Nursing sedation ) Anesthetic plan and risks discussed with patient. Use of blood products discussed with patient who. Additional Equipment RequestsUnRiverview Health Institute07-16-2025 Note Cardiac Electrophysiology Consultation Reason for Consult: SVT, accessory pathway, WPW Referring [employer] Art[employer] Crewmember/PCP: No ref. provider found HPI: Carlos is a very pleasant 24-year-old gentleman who has no prior structural heart disease along with no history of hypertension, hyperlipidemia or diabetes. Notably, very recently in October 2024 he had developed chest discomfort after heavy exertion and then underwent an EKG which showed WPW. He was then referred to to you in cardiology and now is being kindly referred to me for consideration of catheter ablation. Of note, based on his recollection, he reports that he had 1 episode of syncope but it was thought to be due to hypoglycemia. However, considering his history and presence of a WPW pattern, it is possible that this might have been pathway related syncope. Electrophysiology History: WPW, accessory pathway Medical History No past medical history on file. Surgical History No past surgical history on file. Current Medications Current Outpatient Medications Medication Sig Dispense Refill ibuprofen 600 mg tablet Take 1 tablet by mouth every 8 (eight) hours if needed for pain. ketorolac (Toradol) 10 mg tablet Take 1 tablet by mouth every 8 (eight) hours if needed for pain. No current facility-administered medications for this visit. Physical Examination: BP 126/60 Pulse 102 Ht 1.829 m (6') Wt 109 kg (240 lb) BMI 32.55 kg/m??? Gen: No acute distress Neck: No LAD, No JVD elevation CVS: S1, S2 normal, no rubs, no murmurs Pulm: CTABL Abdomen: NTND Neuro: AAO x 3 Extremity: No edema Psych: Mood and affect is normal .labs No results found for: WBC , HGB , HCT , MCV , PLT No results found for: GLUCOSE , CALCIUM , NA , K , CO2 , CL , BUN , CREATININE EKG: No results found for this or any previous visit (from the past 4464 hour(s)). I personally reviewed this EKG and assessed the findings myself No echocardiogram results found for the past 12 months No echocardiogram results found for the past 14 days I have personally reviewed the echocardiogram images myself Based on Assessment and Plan: I had a long conversation with Carlos and his family members in the clinic today and discussed the nature as well as implication of an accessory pathway/WPW. I also discussed the risk of him having orthodromic AVRT which is the most common arrhythmia associated with WPW. In order to risk stratify his accessory pathway, either we can consider a stress test or a diagnostic electrophysiology study. I then discussed that even though there are data on role of stress test to further risk stratify the presence of pathway but the most sensitive and specific method to do so will be a diagnostic electrophysiology study. I also then discussed that catheter ablation would include both a diagnostic EP study and an ablation both. I then discussed the nature of the procedure as well as potential risk of complications that include but are not limited to vascular complications, bleeding issues, cardiac tamponade, pericardial effusion, risk of stroke, risk of IL and most notably the risk of pacemaker implantation. Based on easy-WPW algorithm which is now published in euro pace, it seems that he has likely an anteroseptal pathway near the tricuspid annulus that being said, the exact location can only be determined during the procedure. Update as of 02/27/2025: Patient is here for a planned EPS and SVT ablation Maryse Bae MD, ScM, Msc Cardiac Electrophysiology Email: [email or web address] NoteSVT Ablation Maryse Bae MD, ScM, MSc Cardiac Pilling Machine Operator Email: [email or web address]07-02-2025 NoteBellevue Office Cardiology Clinic Note Reason for cardiology follow-up: Kqnss-Hqnfjgoew-Srhog, possible hypertension HPI: 02/13/2025 The patient is here today for follow-up visit with his significant other. He states that he has been having a lot of anxiety and panic attacks since he was told about Cat Parkinson White and he has been feeling frequent palpitations. Last time he went to the emergency room and apparently his blood pressure and heart rate were elevated and the ED doctor spoke to Dr. Bae. In any case I reviewed the record of the ED visit and his blood pressure was high in the 150s over 90s and the heart rate in the high 90s. Patient now want to proceed with ablation after he discussed that last visit with Dr. Bae. Aside from the palpitation he denies any chest pain or shortness of breath or legs edema. His girlfriend has been checking his blood pressure and sometimes it is on the high side. He gained about 30 pounds since last visit not following appropriate diet. 11/15/2024 Carlos Hagan is a 24 y.o. male without prior cardiac history. No prior history of hypertension, hyperlipidemia, or diabetes mellitus Recently on 11/05/2024 he went to the emergency room with 3 days of chest pain after lifting heavy objects and it was noted to be musculoskeletal however his EKG showed delta wave consistent with Byaiz-Bkhzamulv-Afybs therefore he was referred to cardiology. The patient reports occasional fluttering which occurs usually at rest and usually short lasting, at the time of the fluttering he feels something weird in his body that he cannot describe according to him. No dizziness or syncope in association with those fluttering, however the patient reports long history of syncopal episodes when he was younger, usually occurs in standing position, usually he can tell it is coming by feeling fuzzy, sometimes he can sit down sometimes he does not have enough time and he fell to the floor. Is not associated with palpitation. It used to be frequent when he was younger however they became less and less and the last episode was about 3 years ago. He was told by his family that is probably due to low sugar. 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 Is not associated with any chest discomfort or shortness of breath except the one evident of muscular chest pain occurred recently. He denies orthopnea or paroxysmal nocturnal dyspnea or legs edema or leg discomfort on exertion. He denies snoring or stopping breathing. He denies feeling sleepy or tired during the daytime. He used to drink energy drinks [employer] 4 a day however he stopped since he was told that his EKG is abnormal and now he drinks Mountain Dew 2 cans a day. He drinks alcohol on the weekend about 4 shots of liquor. He used to smoke marijuana for 6 to 7 years however he quit more than a year ago. He barely drink any water. He does not smoke cigarettes, he vapes occasionally Family history his maternal grand father had CABG, he has a brother who had hypertension at the age of 20s, also his mother has hypertension ROS: All systems were reviewed and they were negative except for the positive findings noted above in the history Past Medical History He has a past medical history of Hypertension. Surgical History He has no past surgical history on file. Social History He reports that he does not have a smoking history on file. He uses smokeless tobacco. He reports current alcohol use. He reports current drug use. Drug: Marijuana. Family History No family history on file. Allergies Patient has no known allergies. Medications Current Outpatient Medications: busPIRone (Buspar) 10 mg tablet, Take 1 tablet by mouth every 6 (six) hours during the day., Disp: , Rfl: hydrOXYzine HCL (Atarax) 25 mg tablet, Take 1 tablet by mouth Twice daily at 6am and 6pm., Disp: , Rfl: Last Recorded Vitals Visit Vitals BP 148/83 (BP Location: Left arm, Patient Position: Sitting) Pulse 92 Ht 1.829 m (6') Wt 132 kg (290 lb) SpO2 97% BMI 39.33 kg/m??? Smoking Status Never Assessed BSA 2.59 m??? Physical Examination: GENERAL: alert and oriented x3, well developed, in no acute distress. HEAD: atraumatic, normocephalic. EYES: LOGAN, EOMI. NECK: trachea midline, no JVD present, no carotid bruits present. CARDIAC: S1, S2 present. RRR. No murmur, rubs, or gallops. RESPIRATORY: CTAB, no increased effort of breathing, no rales, rhonchi, or wheezing. ABDOMEN: soft, nontender, nondistended. EXTREMITIES: no lower extremity edema, peripheral pulses are 2+ bilaterally. No rash/skin discoloration present. NEURO: strength/sensation equal and symmetric in bilateral upper and lower extremities. PSYCH: appropriate mood, affect, and judgement. Labs: 11/05/2024 White blood count 8.8, hemoglobin 14.5, hematocrit 43, platelets 287 next Sodium 139, potassium 4.2, BUN 16, (more content not included)...[facility]06-26-2025 Hospital Discharge instructions Additional Instructions Please return to emergency department for any new or worrisome symptoms including any episodes of passing out, chest pain or lightheadedness. Drink plenty fluids until you follow-up with your family physician within the next 1 to 2 days. We did discuss your diagnosis of Cat Parkinson's White with your environmental designer, Dr. Bae, who recommended no additional medications at this time but did recommend you reconsider getting the surgery that was recommended to you, as it could help prevent potentially life-threatening heart rhythms that you are at risk for especially with you getting lightheaded. You should avoid exertion until you follow-up with your family physician and environmental designer. Drink plenty of fluids over the next 24 to 48 hours.[facility] Work Phone: 1(515) 892-211206-03-2025 Evaluation note* Diagnosis Onset Date Resolution Status Admit Date Viral illness noneactiveJane 2024 4:40pmGeneralized anxiety disorderacuteJune 2024 2:03pmWPW (Dmozm-Mawiyqovf-Qjqlj syndrome)acuteJune 2024 2:03pm [facility] Work Phone: 1(845) 452-734106-03-2025 Evaluation note* Diagnosis Onset Date Resolution Status Admit Date Viral illness noneactiveJane 2024 4:40pmGeneralized anxiety disorderacuteJune 2024 2:03pmWPW (Nksdl-Fisximsyx-Nigde syndrome)acuteJune 2024 2:03pmGeneralized anxiety disorderacuteJune 2024 10:57amPre-syncopeacuteJune 2024 10:57amWPW (Ctndr-Qoafjrgmo-Rgyuj syndrome)acuteJune 2024 10:57am [facility] Work Phone: 1(438) 741-948706-03-2025 Evaluation note* Diagnosis Onset Date Resolution Status Admit Date Viral illness noneactiveJanuary 15, 2025 4:40pmGeneralized anxiety disorderacuteJune 2024 2:03pmWPW (Jevxo-Mzcfcpqln-Ichrq syndrome)acuteJune 2024 2:03pmGeneralized anxiety disorderacuteJune 2024 10:57amWPW (Uwxnt-Ztmbmazrn-Jksga syndrome)acuteJune 2024 10:57amPre-syncopeinactiveJune 2024 10:57am [facility] Work Phone: 1(725) 712-448605-07-2025 NoteCardiac Electrophysiology Consultation Reason for Consult: SVT, accessory pathway, WPW Referring Field Artillery Crewmember/PCP: No ref. provider found HPI: Carlos is a very pleasant 24-year-old gentleman who has no prior structural heart disease along with no history of hypertension, hyperlipidemia or diabetes. Notably, very recently in October 2024 he had developed chest discomfort after heavy exertion and then underwent an EKG which showed WPW. He was then referred to to you in cardiology and now is being kindly referred to me for consideration of catheter ablation. Of note, based on his recollection, he reports that he had 1 episode of syncope but it was thought to be due to hypoglycemia. However, considering his history and presence of a WPW pattern, it is possible that this might have been pathway related syncope. Electrophysiology History: WPW, accessory pathway No past medical history on file. No past surgical history on file. Current Outpatient Medications Medication Sig Dispense Refill ibuprofen 600 mg tablet Take 1 tablet by mouth every 8 (eight) hours if needed for pain. ketorolac (Toradol) 10 mg tablet Take 1 tablet by mouth every 8 (eight) hours if needed for pain. No current facility-administered medications for this visit. Physical Examination: BP 126/60 Pulse 102 Ht 1.829 m (6') Wt 109 kg (240 lb) BMI 32.55 kg/m??? Gen: No acute distress Neck: No LAD, No JVD elevation CVS: S1, S2 normal, no rubs, no murmurs Pulm: CTABL Abdomen: NTND Neuro: AAO x 3 Extremity: No edema Psych: Mood and affect is normal .labs No results found for: WBC , HGB , HCT , MCV , PLT No results found for: GLUCOSE , CALCIUM , NA , K , CO2 , CL , BUN , CREATININE EKG: No results found for this or any previous visit (from the past 4464 hour(s)). I personally reviewed this EKG and assessed the findings myself No echocardiogram results found for the past 12 months No echocardiogram results found for the past 14 days I have personally reviewed the echocardiogram images myself Based on Assessment and Plan: I had a long conversation with Carlos and his family members in the clinic today and discussed the nature as well as implication of an accessory pathway/WPW. I also discussed the risk of him having orthodromic AVRT which is the most common arrhythmia associated with WPW. In order to risk stratify his accessory pathway, either we can consider a stress test or a diagnostic electrophysiology study. I then discussed that even though there are data on role of stress test to further risk stratify the presence of pathway but the most sensitive and specific method to do so will be a diagnostic electrophysiology study. I also then discussed that catheter ablation would include both a diagnostic EP study and an ablation both. I then discussed the nature of the procedure as well as potential risk of complications that include but are not limited to vascular complications, bleeding issues, cardiac tamponade, pericardial effusion, risk of stroke, risk of IL and most notably the risk of pacemaker implantation. Based on easy-WPW algorithm which is now published in euro pace, it seems that he has likely an anteroseptal pathway near the tricuspid annulus that being said, the exact location can only be determined during the procedure. Carlos and his family will contemplate the need for procedure further and would inform me about the decision to proceed or not. At any rate, he will follow-up with us in 3 months As always, it is a pleasure to partake in the shared care of our patients. Maryse Bae MD, ScM, Msc Cardiac Electrophysiology Email: [email or web address]04-03-2025 NoteB[facility] Note Reason for cardiology consult: Abnormal EKG Chief Complaint: Occasional palpitation HPI: Carlos Hagan is a 24 y.o. male without prior cardiac history. No prior history of hypertension, hyperlipidemia, or diabetes mellitus Recently on 11/05/2024 he went to the emergency room with 3 days of chest pain after lifting heavy objects and it was noted to be musculoskeletal however his EKG showed delta wave consistent with Tnoix-Fylkkrczc-Qbwdz therefore he was referred to cardiology. The patient reports occasional fluttering which occurs usually at rest and usually short lasting, at the time of the fluttering he feels something weird in his body that he cannot describe according to him. No dizziness or syncope in association with those fluttering, however the patient reports long history of syncopal episodes when he was younger, usually occurs in standing position, usually he can tell it is coming by feeling fuzzy, sometimes he can sit down sometimes he does not have enough time and he fell to the floor. Is not associated with palpitation. It used to be frequent when he was younger however they became less and less and the last episode was about 3 years ago. He was told by his family that is probably due to low sugar. 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 Is not associated with any chest discomfort or shortness of breath except the one evident of muscular chest pain occurred recently. He denies orthopnea or paroxysmal nocturnal dyspnea or legs edema or leg discomfort on exertion. He denies snoring or stopping breathing. He denies feeling sleepy or tired during the daytime. He used to drink energy drinks Monster 4 a day however he stopped since he was told that his EKG is abnormal and now he drinks Mountain Dew 2 cans a day. He drinks alcohol on the weekend about 4 shots of liquor. He used to smoke marijuana for 6 to 7 years however he quit more than a year ago. He barely drink any water. He does not smoke cigarettes, he vapes occasionally Family history his maternal grand father had CABG, he has a brother who had hypertension at the age of 20s, also his mother has hypertension Cardiology ROS: GENERAL: Denies fever, chills, night sweats, weight loss. HEENT: Denies changes in vision, photophobia, changes in hearing, epistaxis, oral bleeding. CARDIOVASCULAR: Denies exertional dyspnea, orthopnea/PND, lower extremity edema. He reports brief episodes of palpitations as described above, he reports prior events of lightheadedness/dizziness/syncope last one 1 year ago. He presented recently with muscular chest pain to the emergency room RESPIRATORY: Denies SOB, coughing, wheezing GI: Denies abdominal pain, nausea/vomiting, heartburn, melena/hematochezia. RENAL: Denies dysuria, hematuria, flank pain. MSK: Denies muscle weakness/pain, arthralgias/joint pain. NEUROLOGIC: Denies LOC, weakness, numbness, headaches. SKIN: Denies abnormal rashes or bleeding. PSYCH: Denies significant anxiety, depression, sleep disturbances. Past Medical History He has no past medical history on file. Surgical History He has no past surgical history on file. Social History He reports that he does not have a smoking history on file. He uses smokeless tobacco. He reports current alcohol use. No history on file for drug use. Family History No family history on file. Allergies Patient has no known allergies. Medications Current Outpatient Medications: ibuprofen 600 mg tablet, Take 1 tablet by mouth every 8 (eight) hours if needed for pain., Disp: , Rfl: ketorolac (Toradol) 10 mg tablet, Take 1 tablet by mouth every 8 (eight) hours if needed for pain., Disp: , Rfl: Last Recorded Vitals Visit Vitals BP 152/83 (BP Location: Right arm, Patient Position: Sitting) Pulse 91 Ht 1.854 m (6' 1 ) Wt 118 kg (260 lb) SpO2 96% BMI 34.30 kg/m??? Smoking Status Never Assessed BSA 2.47 m??? Physical Examination: GENERAL: alert and oriented x3, well developed, in no acute distress. HEAD: atraumatic, normocephalic. EYES: LOGAN, EOMI. NECK: trachea midline, no JVD present, no carotid bruits present. CARDIAC: S1, S2 present. RRR. No murmur, rubs, or gallops. RESPIRATORY: CTAB, no increased effort of breathing, no rales, rhonchi, or wheezing. ABDOMEN: soft, nontender, nondistended. EXTREMITIES: no lower extremity edema, peripheral pulses are 2+ bilaterally. No rash/skin discoloration present. NEURO: strength/sensation equal and symmetric in bilateral upper and lower extremities. PSYCH: appropriate mood, affect, and judgement. Labs: 11/05/2024 White blood count 8.8, hemoglobin 14.5, hematocrit 43, platelets 287 next Sodium 139, potassium 4.2, BUN 16, creatinine 1.06, GFR above 60, glucose 109, calcium 8.9 next High-sensitivity troponin normal Last Images: EKG 11/05/2024 showed normal sinus rhyt (more content not included)...[facility]01-05-2024 Evaluation note* Encounter Date Diagnosis Assessment Notes Treatment Notes Treatment Clinical Notes Aug, Dysuria (ICD-10 - R30.0) Drink [...] no discharge or lesions or testicular pain. [facility] Other 05-02-2023 Evaluation note* Encounter Date Diagnosis [...] for fever/discomfort, cool mist humidifier. May use [place] as needed for cough, do not take any other OTCs while using [place]. Patient to follow up with PCP in 2-3 days if symptoms do not improve. Immediateeval if SOB, difficulty breathing, chest pain, dizziness, or other concerning symptoms. Patient verbalizes understanding and is agreeable to treatment plan. [facility] Other 04-21-2022 NoteProcedure: Acute abdomen series, including [...] Is Signed, Electronically Signed in Other Vendor System)[facility]04-07-2022 Hospital Discharge instructions Patient Education 11/19/2021 10:29:07 Saleh Catheter Care, Male-[facility] (Custom) Saleh Catheter Care, Male A Saleh [...] cotton underwear to absorb moisture and keep ore storage drier. 6. Keep the drainage bag below the [...] Address: [facility] [address], [place] [address]- Business (1) When:3 to 5 days Comments:Nurse visit for Saleh catheter removal. [facility]01-13-2022 NotePatient Education Materials Name: Carlos Hagan Current Date: 08/27/2021 15:19:43 [place] : 2000 The following sheet(s) are the Patient Education Leaflets for Carlos Hagan Infectious Disease Coronavirus Disease 2019 (COVID-19): [...] a bandana, T-shirt, or other cloth. The [facility] has instructions on how to make a [...] bandana, T- shirt, or other cloth. The [facility] has instructions on how to make a [...] caffeine, juices, tea, and soup. ? Taking enre-uji-qxbbnde (OTC) pain medicine. These are used to [...] ? Wear protective clothing (more content not included)...[facility]01-13-2022 NoteThis is a Telephone Appointment *This visit [...] test for work History of Present Illness Berry Carlos Roche is a 21 Years old Male who presents with cough, fever, nasal congestion and rhinorrhea that started Tuesday. Patient took an at home COVID-19 test that was positive. He states that his fever was as high as 102 the past 2 days but he has not had a fever today. Patient's been taking Tylenol wwdl-nmj-xqtatpb for symptom management. Patient states that he [...] infection Continue to treat your symptoms with jdnz-lru-sznwvti medication. Drink plenty of fluids and take [...] to 2 mg at night Vitamin D3 [id number] u/day Optional: Famotidine 20-40 mg/day (for reflux/stomach [...] Electronically signed by Lilian Vicente 08/27/21 15:12 [facility]10-06-2021 NotePatient Education Materials Name: Carlos Hagan Current Date: 05/20/2021 16:24:38 [facility] : 2000 The following sheet(s) are the Patient Education Leaflets for Carlos Hagan Infectious Disease Coronavirus Disease 2019 (COVID-19): [...] soap and water, use an alcohol-based hand wind power project manager often. Make sure it has at least [...] paper towel. ? Use an alcohol-based hand wind power project manager often. Make sure it has at least [...] bandana, T- shirt, or other cloth. The [facility] has instructions on how to make amask. [...] soap and water, use an alcohol-based hand wind power project manager often. Make sure it has at least [...] ? Clean work surfaces (more content not included)...[facility]09-08-2021 NotePatient Education Materials Name: Carlos Hagan Current Date: 04/22/2021 15:41:45 [place] : 2000 [facility]: [id number] The following sheet(s) are the Patient Education Leaflets for Carlos Hagan Ambulatory Viral Upper Respiratory Illness (Adult) [...] loosen secretions in the nose and lungs. ?Vwmj-zhd-tplykub cold medicines will not shorten the length of time you?re sick, but they may be helpful for the following symptoms: cough, sore throat, and nasal and sinus congestion. If you take prescription medicines, ask your healthcare provider or pharmacist which dpen-npl-nbqlhxl medicines are safe to use. (Note: Don't [...] goes along with a muffled voice ? [phone] [employer]. [address] [place] [address]. All rights reserved. 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 in this encounter [facility] Center[facility] Narrative - Reported* Type Description Date Medical History acne [facility] Other History general Narrative - Reported* Type Description Date Medical History acne Surgical [id number] [facility] Other Hospital Discharge instructions No data available for this section [facility] No data available for this section [facility] HospitalReason for referral (narrative)No reason for referral information availableFulton County [facility] Work Phone: Summary Purpose Family History No Family History Records FoundNo Family History Records FoundNo Family History Records FoundNo Family History Records FoundNo Family History Records Found Advance Directives Advance Directive Response Recorded Date/ Time Advance Directives No January 20 0 2:56pm Advance Directive Response Recorded Date/ Time Advance Directives No January 20 0 1:56pm Chief Complaint and Reason for Visit Chief Complaint Admit Date Cough, congestion January 15, 2025 4:40p m Chief Complaint Admit Date Cough, congestion January 15, 2025 4:40p m establish/ anxiety January 29, 2025 2:03 pm Heat Exhaustion February 07, 2025 2:50 pm Reason for Visit Admit Date Viral illness January 15, 2025 4:40p m Generalized anxiety disorder January 29, 2025 2:03pm WPW (Nhtjz-Wejgdftpb-Quhld syndrome) Jan 2:03pm Chief Complaint Admit Date Cough, congestion January 15, 2025 4:40p m establish/ anxiety January 29, 2025 2:03 pm Heat Exhaustion February 07, 2025 2:50 pm Amb Documentation February 08, 2025 8:39 am ER F/U Syncope February 08, 2025 10:5 7am Reason for Visit Admit Date Viral illness January 15, 2025 4:40p m Generalized anxiety disorder January 29, 2025 2:03pm WPW (Vkvmd-Mnmopzftl-Xduon syndrome) Jan 2:03pm Generalized anxiety disorder February 08, 2025 10:57am Pre-syncope February 08, 2025 10:5 7am WPW (Aopmp-Ypdleqccq-Cqjvt syndrome) Jan 10:57am Chief Complaint Admit Date Cough, congestion January 15, 2025 4:40p m establish/ anxiety January 29, 2025 2:03 pm Heat Exhaustion February 07, 2025 2:50 pm Amb Documentation February 08, 2025 8:39 am ER F/U Syncope February 08, 2025 10:5 7am 4 week follow up March 14, 2025 1:52 pm Reason for Visit Admit Date Viral illness January 15, 2025 4:40p m Generalized anxiety disorder January 29, 2025 2:03pm WPW (Odvqb-Jitrkqvxg-Ffvry syndrome) Jan 2:03pm Generalized anxiety disorder February 08, 2025 10:57am WPW (Ozjtk-Gufeyuzdn-Fscmo syndrome) Jan 10:57am Pre-syncope February 08, 2025 10:5 7am Chief Complaint Admit Date 4 week follow up March 14, 2025 1:52 pm Sore throat May 20, 2025 1: 29pm Reason for Visit Admit Date Generalized anxiety disorder March 14, 2025 1:52pm Hypertension March 14, 2025 1:52 pm WPW (Bibjm-Oyblyqknp-Pissv syndrome) Hayden 2024 1:52pm Additional Source Comments (unrecognized sect ion and content) No Status Records FoundNo Status Records FoundNo Status Records FoundNo Status Records FoundNo Status Records Found INFORMATION SOURCE (unrecogn ized section and content) DATE CREATED AUTHOR 04/17/2018 [facility] DATE CREATED AUTHOR AUTHOR'S ORGANIZ ATION 02/03/2022 [facility] DATE CREATED AUTHOR AUTHOR'S ORGANIZ ATION 08/23/2023 [facility] DATE CREATED AUTHOR AUTHOR'S ORGANIZ ATION 02/14/2025 [facility] DATE CREATED AUTHOR AUTHOR'S ORGANIZ ATION 03/19/2025 [facility] Care Team (unrecognized sect ion and content) Team Status: Inactive Member Role Status Dates Tejal Gomez APRN Attending Provider Active Team Status: Inactive Member Role Status Dates Brigette Vizcaino NP-C Attending Provider Active Team Status: Active Member Role Status Dates Jakob Velasquez MD Primary Care Provider Active Team Status: Inactive Member Role Status Dates Jakob Velasquez MD Primary Care Provider Active Start: January 15, 2025 End: January 15Dorene Lam ProviderActiveStart: January 15, 2025 End: January 15, 2025 Team Status: Active Member Role Status Dates Coreen Maurer APRN LINING SETTER-C Primary Care Provider Active Team Status: Inactive Member Role Status Dates Coreen Maurer APRN LINING SETTER-C Primary Care Provider Active Start: January 29, 2025 End: January 29, 2025Coreen Maurer APRN LINING SETTER-CAttending ProviderActive Start: January 29, 2025 End: January 29, 2025 Team Status: Inactive Member Role Status Dates Coreen Maurer APRN LINING SETTER-C Primary Care Provider Active Start: February 07, 2025 End: February 07Jason Marin ProviderActiveStart: February 07, 2025 End: February 07, 2025 Team Status: Active Member Role Status Dates Coreen Muarer APRN LINING SETTER-C Primary Care Provider Active Start: February 08, 2025 Tony You ProviderActiveStart: February 08, 2025 Team Status: Inactive Member Role Status Dates Coreen Maurer APRN LINING SETTER-C Primary Care Provider Active Start: February 08, 2025 End: February 08, 2025Coreen Maurer APRN LINING SETTER-CAttending ProviderActive Start: February 08, 2025 End: February 08, 2025Team MemberRelationshipSpecialtyStart DateEnd Date Coreen Maurer NP [address] [facility] [place] [address] [facility] Team Status: Inactive Member Role Status Dates Coreen Maurer APRN LINING SETTER-C Primary Care Provider Active Start: March 14, 2025 End: March 14, 2025Coreen Maurer APRN LINING SETTER-CAttenclaudia ProviderActive Start: March 14, 2025 End: March 14, 2025 Team Status: Inactive Member Role Status Dates Coreen Maurer APRN LINING SETTER-C Primary Care Provider Active Start: May 20, 2025 End: May 20mandDorene Dong ProviderActiveStart: May 20, 2025 End: May 20, 2025 REASON FOR VISIT (unrecogniz ed section and content) COUGH, CONGESTIONPOSS UTIPOS S UTI Goals (unrecognized section and content) Goals may be documented in a n alternate section Source Comments (unrecognize d section and content) In the event this informatio n is protected by the Federal Confidentiality of Alcohol and Drug Abuse Patient Records regulations: The Federal rules restrict any use of the information to criminally investigate or prosecute any alcohol or drug abuse patient.[facility] CenterIn the event this information is protected by the Federal Confidentiality of Alcohol and Drug Abuse Patient Records regulations: The Federal rules restrict any use of the information to criminally investigate or prosecute any alcohol or drug abuse patient.[facility] FOR RECORDS PERTAINING TO PATIENTS WHO ARE [...] BE BASED ON THE PRIMARY CLINICAL RECORDS. [facility] [employer] [facility]. provides no warranty or guarantee of the accuracy or completeness of information in this document.
--- NOTE | 2025-07-26 14:27 | ED.GENADUL1 ---
HPI HPI - General Adult General Chief complaint: Extremity Problem, Nontraumatic Stated complaint: R FOOT PAIN Time Seen by Provider: 07/26/25 13:30 Source: patient Mode of arrival: walk-in Limitations: no limitations History of Present Illness HPI narrative: 25-year-old male presents to the emergency room with chief complaint of right foot pain. Patient has soft tissue swelling along the plantar fascia region of the right foot. Denies any known injury or trauma. Patient's feet are dirty and show evidence that he walks around barefoot quite often. Patient denies any foreign bodies to the foot itself. He is not diabetic. States he woke this morning with the pain and swelling. He is able to ambulate but is difficult due to tenderness. There is no redness or streaking noted soft tissue swelling to the plantar aspect is noted. Pulses are intact. Related Data Previous Rx's ?Medication ?Instructions ?Recorded ketorolac 10 mg tablet 10 mg PO TID PRN pain #10 tabs 11/06/24 Allergies Allergy/AdvReac Type Severity Reaction Status Date / Time No Known Drug Allergies Allergy Verified 11/05/24 19:38 Review of Systems ROS Status of ROS 10 or more systems reviewed and unremarkable except as noted in history and below PFSH PFSH Social History Little interest or pleasure in doing things: not at all Feeling down, depressed, or hopeless: not at all Exam Narrative Exam Narrative: All Systems are negative except as noted/marked.All systems reviewed and otherwise negative Nurses note and vital signs reviewed and patient is not hypoxic. General: The patient appears well and in no apparent distress. Patient is resting comfortably on cart. Skin: Warm, dry, no pallor noted. There is no rash noted. Head: Normocephalic, atraumatic Eye: Normal conjunctiva, no drainage, EOMI. PERRL Ears, Nose, Mouth, and Throat: oral mucosa is moist. Nares patent. Mouth without vesicles. Ear canals patent. Tm's without Erythema Cardiovascular: Regular Rate and Rhythm Musculoskeletal: Soft tissue swelling to the arch of the solar aspect of the right foot, no streaking or redness is noted. Tenderness to palpation. The patient has no evidence of calf tenderness, no pitting edema, symmetrical pulses noted bilaterally Neurological: A&O x4, normal speech Psychiatric: Cooperative Constitutional Vital Signs, click to edit/add: Last Vital Signs Temp 99.6 F 07/26/25 13:28 Pulse 76 07/26/25 13:28 Resp 18 07/26/25 13:28 BP 160/86 H 07/26/25 13:28 Pulse Ox 99 07/26/25 13:28 O2 Del Method Room Air 07/26/25 13:28 Course Vital Signs Vital signs: Vital Signs Temperature 99.6 F 07/26/25 13:28 Pulse Rate 76 07/26/25 13:28 Respiratory Rate 18 07/26/25 13:28 Blood Pressure 160/86 H 07/26/25 13:28 Pulse Oximetry 99 07/26/25 13:28 Oxygen Delivery Method Room Air 07/26/25 13:28 Temperature 99.6 F 07/26/25 13:28 Pulse Rate 76 07/26/25 13:28 Respiratory Rate 18 07/26/25 13:28 Blood Pressure 160/86 H 07/26/25 13:28 Pulse Oximetry 99 07/26/25 13:28 Oxygen Delivery Method Room Air 07/26/25 13:28 Medical Decision Making [facility] Narrative Medical decision making narrative: 25-year-old male presents to the emergency room with chief complaint of right foot pain. Patient has soft tissue swelling along the plantar fascia region of the right foot. Denies any known injury or trauma. Patient's feet are dirty and show evidence that he walks around barefoot quite often. Patient denies any foreign bodies to the foot itself. He is not diabetic. States he woke this morning with the pain and swelling. He is able to ambulate but is difficult due to tenderness. There is no redness or streaking noted soft tissue swelling to the plantar aspect is noted. Pulses are intact. Medical Records Medical records reviewed: Yes I reviewed the patient's medical records Medical records narrative: 25-year-old male presents to the emergency room with chief complaint of right foot pain. Patient has soft tissue swelling along the plantar fascia region of the right foot. Denies any known injury or trauma. Patient's feet are dirty and show evidence that he walks around barefoot quite often. Patient denies any foreign bodies to the foot itself. He is not diabetic. States he woke this morning with the pain and swelling. He is able to ambulate but is difficult due to tenderness. There is no redness or streaking noted soft tissue swelling to the plantar aspect is noted. Pulses are intact. Patient presenting here with chief complaint of right foot pain and swelling soft tissue swelling is noted. Patient denied injury or trauma. X-ray shows no acute bony deformity or foreign bodies on exam. Patient given Torey wrap postop shoe follow-up with podiatry, Dr. Dane Viveros. Medicated here with ibuprofen and discharged home. Patient told to rest ice elevate. Patient agrees with plan of care Imaging Data foot: Radiologist's impression: ITS Impressions Foot X-Ray 07/26/25 13:30 IMPRESSION: NO ACUTE BONY FINDINGS. Impression dictated by: Tiana Sanchez M.D. 07/26/2025 2:02 PM Dictation Location: [employer] Electronically authenticated by: [id number] Y Date: 07/26/2025 14:02 Discharge Plan Discharge Chief Complaint: Extremity Problem, Nontraumatic Clinical Impression: Foot sprain Patient Disposition: Home, Self-Care Time of Disposition Decision: 14:28 Condition: Good Prescriptions / Home Meds: No Action ketorolac 10 mg tablet 10 mg PO TID PRN (Reason: pain) Qty: 10 0RF Print Language: Occitan Instructions: How to Use an Elastic Bandage (ED), Foot Sprain (ED), Ice Pack Application (ED), Post Surgical Shoe (ED) Referrals: Physician,Non-Staff, [Primary Care Provider] - 1 week Babak Chahal DPM [Physician, Podiatry] - 1 week
[2025-07-26] MEDS: IBUPROFEN 400 MG TABLET 800 MG PO (14:39)
== END 2025-07-26 14:51 | disposition home or self-care (01) ==
PROVIDERS: Emergency Provider Emergency Medicine
DX: S93.601A Unspecified sprain of right foot, initial encounter (principal)
CPT/HCPCS: 73630; 99283

== ENCOUNTER 2025-08-06 11:46 | Outpatient (OUT) | payer OTHER, SELFPAY ==
--- OUTSIDE RECORDS SUMMARY | 2025-07-29 06:00 | XMS_ITS ---
Author Organization [employer] Address [address] [address], [facility] [place] [address] Care Team Providers Care Fitter Machinist Name Role Phone Coreen Segovia Primary Care Provider Unavailable Babak Chahal Unavailable [phone] Allergies No Known Allergies REASON FOR VISIT Right Foot Pain Medications Medication SIG (Take, Route, Frequency, Duration) Notes Start Date End Date Status hydrOXYzine HCl 25 MG Tablet TAKE 1 TABL ET BY MOUTH TWICE DAILY NEEDED FOR ANXIETY Oral; Duration: 30 Days ActiveamLODIPine Besylate 5 MG TabletTAKE 1 TABLET BY MOUTH IN THE MORNING Oral; Duration: 30 DaysActiveMeloxicam 15 MG Tablet1 tablet Orally daily; Duration: 30 days5ActiveMedrol 4 MG Tablet Therapy Packas directed Orally daily; Duration: 6 days5ActivebusPIRone HCl 10 MG TabletTAKE 1 TABLET BY MOUTH THREE TIMES DAILY Oral; Duration: 30 DaysActive Social History Section Notes: Current tobacco use: Vape. Social alcohol use. Encounters Encounter Location Date Provider Diagnosis [facility] [address] [address], [place] [address] 07/29/2025 Babak Chahal Rupture of plantar fascia of right foot, initial encounter S93.691A Assessments Encounter Date Diagnosis (ICD Code) Assessment Notes Treatment Notes Treatment Clinical Notes Section Notes 07/29/2025 Rupture of plantar f ascia of right foot, initial encounter (ICD-10 - S93.691A) Patient's examination is consistent with plantar fascial rupture however he has no recollection of injuring his foot. I also cannot explain why he is having numbness to the ipsilateral toes although the plantar fascia is near medial and lateral plantar nerves which innervate the toes. I recommendedan MRI which was ordered today. Given that ibuprofen is not helping I recommended meloxicam which was prescribed which she may take as needed as well as a Medrol Dosepak. I did provide a note for himto be off of work for the next 3 weeks so we can obtain the MRI to determine what exactly is going on with his foot. He will follow-up after the MRI Plan Of Treatment Medication Medication Name Sig Start Date Stop Date Notes Meloxicam 15 MG Tablet 1 tablet Orally daily; Duration : 30 days 07/29/2025 Medrol 4 MG Tablet Therapy Packas directed Orally daily; Duration: 6 days 07/29/2025Treatment Notes Assessment Notes Rupture of plantar fascia of right foot, initial encounter Patient's examination is consistent with plantar fascial rupture however he has no recollection of injuring his foot. I also cannot explain why he is having numbness to the ipsilateral toes although the plantar fascia is near medial and lateral plantar nerves which innervate the toes. I recommended an MRI which was ordered today. Given that ibuprofen is not helping I recommended meloxicam which was prescribed which she may take as needed as well as a Medrol Dosepak. I did provide a note for him to be off of work for the next 3 weeks so we can obtain the MRI to determine what exactly is going on with his foot. He will follow-up after the MRI Next Appt Details Follow Up: after MRI, Reason : History and Physical Notes * HPI (History of Present Illness) CategorySub-CategoryDetailNotesCategory NotesFootPatient is a 25-year-old male with history of Wponz-Guutcvfzy-Omlhz syndrome who woke up on the morning of 07/26/2025 with pain and swelling to his right plantar medial instep as well as numbness into his right toes. 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 He has never had an issue like this before. He has takenibuprofen which does not help much. He relates that he can take NSAIDs. Examination CategorySub-CategoryDetailNotesCategory NotesGeneral Examination Skin: Skin intact. No sign of infection Neuro: LTS intact to plantar and dorsal foot although altered to right toes 1 through 5. Negative tinel's sign Vasc: pedal pulses are palpable. No calf pain on squeeze MSK: POP to the plantar medial instep and there is irregularity within the medial and central bandsof the plantar fascia. Localized swelling and warmth is noted to the area but no pain out of proportion or fluctuance. Progress Notes * Carlos HAGANDOB:2000 ( 25 yo M)Acc No.[id number]:07/29/2025 New Patient Patient: Carlos Perez :?Babak Chahal, DPMDOB:2000???Age:25 Y ???Sex:MaleDate:07/29/2025Phone:Address:[address] [place] [address], [id number]:JULIUS Fair Subjective: * Chief Complaints: * R ight Foot Pain * HPI: ???Foot:?Patient is a 25-year-old male with history of Qwbfl-Dijccnknx-Gxbqa syndrome who woke up on the morning of 07/26/2025 with pain and swelling to his right plantar medial instep as well as numbness into his right toes.? 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 He has never had an issue like this before. He hastaken ibuprofen which does not help much. He relates that he can take NSAIDs. * Medical History: High Blood Pressure Medical History Verified * Surgical History: Heart Ablasion ? Urethra ? Surgical History verified.? * Social History: Social History Verified. ???Current tobacco use: Vape. Social alcohol use. * Medications: T akingbusPIRone HCl 10 MG Tablet TAKE 1 TABLET BY MOUTH THREE TIMES DAILY Oral hydrOXYzine HCl 25 MG Tablet TAKE 1 TABLET BY MOUTH TWICE DAILY NEEDED FOR ANXIETY Oral amLODIPine Besylate 5 MG Tablet TAKE 1 TABLET BY MOUTH IN THE MORNING Oral Medication List reviewed and reconciled with the patientTaking busPIRone HCl 10 MG Tablet TAKE 1 TABLET BY MOUTH THREE TIMES DAILY Oral Taking hydrOXYzine HCl 25 MG Tablet TAKE 1 TABLET BY MOUTH TWICE DAILY NEEDED FOR ANXIETY Oral Taking amLODIPine Besylate 5 MG Tablet TAKE 1 TABLET BY MOUTH IN THE MORNING Oral Medication List reviewed and reconciled with the patient * Allergies: N .K.D.A.yesAllergies Verified. Objective: * Examination: ???General Examination: ???Skin: Skin intact. No sign of infection Neuro: LTS intact to plantar and dorsal foot although altered to right toes 1 through 5. Negative tinel's sign Vasc: pedal pulses are palpable. No calf pain on squeeze MSK: POP to the plantar medial instep and there is irregularity within the medial and central bandsof the plantar fascia. Localized swelling and warmth is noted to the area but no pain out of proportion or fluctuance. Assessment: * Assessment: 1.?Rupture of plantar fascia of right foot, initial encounter - X62.774L (Primary)?? Plan: * Treatment: Start Meloxicam Tablet, 15 MG, 1 tablet, Orally, daily, 30 days, 30 Tablet, Refills 1;?Start Medrol Tablet Therapy Pack, 4 MG, as directed, Orally, daily, 6 days, 1, Refills 0.?? Notes: Patient's examination is consistent with plantar fascial rupture however he has no recollection of injuring his foot.? I also cannot explain why he is having numbness to the ipsilateral toes although the plantar fascia is near medial and lateral plantar nerves which innervate the toes. I recommended an MRI which was ordered today.? Given that ibuprofen is not helping I recom mended meloxicam which was prescribed which she may take as needed as well as a Medrol Dosepak. I did provide a note for him to be off of work for the next 3 weeks so we can obtain the MRI to determine what exactly is going on with his foot. He will follow-up after the MRI?? * Procedure Codes: S PPT1 Self pay pt * Follow Up: a fter MRI Billing Information: * Procedure Codes: SPPT1 Self pay pt. * Sign off status: Completed* Addendum: * true * Provider: Gita Chahal DPM Date: 09/29/2024 Generated for Printing/Faxing/eTransmitting on:?08/06/2025 11:49 AM EST
--- OUTSIDE RECORDS SUMMARY | 2025-08-06 11:49 | XMS_ITS | Clinical Summary ---
Author Organization [facility] Address [address] [place] [address] Care Team Providers Care Dry Cleaner Presser Name Role Phone Coreen Maurer NP Primary Care Provider [phone] Allergies No known active allergies Medications MedicationSigDispense QuantityRefillsLast FilledStart DateEnd DateStatus busPIRone (Buspar) 10 mg tablet Take 1 tablet by mouth every 6 (six) hours during the day.5Active hydrOXYzine HCL (Atarax) 25 mg tablet Take 1 tablet by mouth Twice daily at 6am and 6pm.5Active amLODIPine (Norvasc) 5 mg tablet Indications:Essential hypertensionTake 1 tablet (5 mg) by mouth in the morning. 30 tablet 1105002/13/2026ctive Active Problems ProblemNoted DateDiagnosed DateSVT (supraventricular tachycardia)02/28/2025 Igykevnzeurk07/02/2025bnormal EKG011/15/2024WPW (Ckmtz-Deykatjzs-Vevdq syndrome) 11/15/2024Syncope and btolilya48/03/2025Essential qcqbyxzwiszd66/03/2025lass 1 obesity due to excess calories without serious comorbidity with body mass index (BMI) of 34.0 to 34.9 in adult11/15/2024 Resolved Problems ProblemNoted DateDiagnosed DateResolved DateSVT (supraventricular tachycardia) Family History RelationNameStatusCommentsBrotherAliveFatherAliveMotherAliveSisterAlive Social History Tobacco UseTypesPacks/DayYears UsedDateSmoking Tobacco: NeverSmokeless Tobacco: Current Tobacco Cessation:Ready to Q uit: Not Asked; Counseling Given: Not Answered Comments:Vape all day Alcohol UseStandard Drinks/WeekCommentsYes0 (1 standard drink = 0.6 oz pure alcohol)weekend 4 shotAHC UtilitiesAnswerDate RecordedIn the past 12 months has the electric, gas, oil, or water company threatened to shut off services in your home?No02/27/2025Humiliation, Afraid, Rape, and Kick questionnaireAnswerDate RecordedWithin the last year, have you been afraid of your partner or ex-partner?No02/27/2025Emotionally AbusedNot on file02/27/2025Physically Abused Not on file02/27/2025Sexually AbusedNot on file02/27/2025Overall Financial Resource Strain (CARDIA)AnswerDate RecordedHow hard is it for you to pay for the very basics like food, housing, medical care, and heating?Not hard at all 02/27/2025TransportationAnswerDate RecordedIn the past 12 months, has lack of transportation kept you from medical appointments or from getting medications?No 02/27/2025Lack of Transportation (Non-Medical)Not on file02/27/2025Housing Stability Vital SignAnswerDate RecordedIn the last 12 months, was there a time when you were not able to pay the mortgage or rent on time?No02/27/2025Number of Times Moved in the Last YearNot on file02/27/2025t any time in the past 12 months, were you homeless or living in a mcfp (including now)?No02/27/2025 Hunger Vital SignAnswerDate RecordedWithin the past 12 months, you worried that your food would run out before you got the money to buymore.Never true02/27/2025 Ran Out of Food in the Last YearNot on file02/27/2025Sex and Gender Information ValueDate RecordedSex Assigned at ZskanMvnz16/16/2025 11:21 AM EDTLegal SexMale 11/06/2024 10:06 AM EDTGender DtoiegzkBjgc12/16/2025 11:21 AM EDTSexual OrientationDon't know07/ 11:21 AM EDT Last Filed Vital Signs Vital SignReadingTime TakenCommentsBlood Kemjwkqr826/8007 11:21 AM EDT Rwppf489203/14/2025 11:21 AM ZOPKgddhjjuxix98.4 ??C (97.5 ??F)02/28/2025 8:34 AM EDTRespiratory Paze949802/28/2025 8:34 AM EDTOxygen Mlbgteflve81%03/14/2025 11:21 AM EDTInhaled Oxygen Concentration--Mzqlxn201 kg (260 lb)03/14/2025 11:21 AM EDT Qxdjny115.4 cm (6' 1 )03/14/2025 11:21 AM EDTBody Mass Index34.307 11:21 AM EDT Plan of Treatment Health MaintenanceDue DateLast DoneCommentsDepression Yxzxlufmh88/24/2012 Varicella Vaccines (1 of 2 - 13+ 2-dose series)2013HPV Vaccines (1 - Male 3-dose series)2015dult Xtwdubr9506/07/2022OVID-19 Vaccine ( - season)2025Influenza Vaccine (#1)2025Zoster Vaccines (1 of 2) 2050HIB VaccinesAged OutNo longer eligible based on patient's age to complete this topicIPV VaccinesAged OutNo longer eligible based on patient's age to complete this topicMeningococcal B VaccineAged OutNo longer eligible based on patient's age to complete this topicMeningococcal VaccineAged OutNo longer eligible based on patient's age to complete this topicPneumococcal Vaccine: Pediatrics (0 to 5 Years) and At-Risk Patients (6 to 64 Years)Aged OutNo longer eligible based on patient's age to complete this topicRotavirus VaccinesAged Out No longer eligible based on patient's age to complete this topic Medical Devices ImplantedTypeAreaManufacturerDevice IdentifierShelf Expiration DateModel / Serial / LotDevice,Closure,Vascular,6-7f - [id number] Implanted:Qty: 1 on 02/27/2025 [facility]Device[facility]/A: [id number] / / Device,Closure,Vascular,6-7f - [id number] Implanted:Qty: 2 on 02/27/2025 by Tad Bae MD [facility] HospitalDeviceLeft: [id number] / / Insurance * Guarantor: Carlos Smart TypeRelation to PatientDate of BirthPhone Billing AddressPersonal/PcwwoxBqpf2000 [facility] [address] Advance Directives * Full Code (Latest Code Status on File) Date ActivatedDate InactivatedComments02/27/2025 8:28 PM02/28/2025 1:14 PM Care Teams Team MemberRelationshipSpecialtyStart DateEnd Date Coreen Maurer NP [facility] [address] [id number] PCP - GeneralFamily Medicine03/14/25
--- OUTSIDE RECORDS SUMMARY | 2025-08-06 11:49 | XMS_ITS | Encounter Summary ---
Author Organization [facility] Address [address] [place] [address] Care Team Providers Care It Support Specialist Name Role Phone Unavailable Primary Care Provider Unavailabl e Encounter Details DateTypeDepartmentCare Team (Latest Contact Info)Echvmajqdgo08/12/2025Clinisync Result Encounter [facility] Unsolicited Marianela Ho, TAMMY [address] [place] [address] [address] [place] [address] Social History Tobacco UseTypesPacks/DayYears UsedDateSmoking Tobacco: Never AssessedSex and Gender InformationValueDate RecordedSex Assigned at BirthNot on fileLegal Sex Male10/27/2022 6:49 PM EDTGender IdentityNot on fileSexual OrientationNot on filedocumented as of this encounter Plan of Treatment Not on file documented as of this encounter Procedures Procedure NamePriorityDate/TimeAssociated DiagnosisCommentsXR FOOT RT MIN 3V 07/26/2025 2:02 PM EST documented in this encounter Results * XR FOOT RT MIN 3V (07/26/2025 2:02 PM EST)Anatomical RegionLateralityModality OtherSpecimen (Source)Anatomical Location / LateralityCollection Method / VolumeCollection TimeReceived Time07/26/2025 2:02 PM EST Narrative 07/26/2025 2:04 PM EST [facility] ?[address] ? [place] [address] ?XRay Report ? Signed ? Patient: POLINA HAGAN ? MR#: [id number] ?? : 2000 ?Acct:[id number] ?? Age/Sex: 25 / M ?ADM Date: ?? Loc: ER ? Attending Dr: ? Ordering Physician: Marianela Ho ?? Date of Service: 07/26/25 ?? Procedure(s): XR foot RT min 3V ?? Accession Number(s): [id number] ? cc: Marianela Ho; Physician,Non-Staff M.D. ? [facility] ? [address] ? [place] [address] ? Patient Name: ?? POLINA HAGAN ? MRN: [facility]:[id number] ? date: 2000 ?Sex: M ?? Assigned Patient Location: ED.MAIN ?? Current Patient Location: ED.MAIN ?? Accession/Order Number: [id number] ?? Exam Date: 07/26/2025 ??13:35 ?Report Date: 07/26/2025 ??14:02 ? At the request of: ?? MARIANELA ??VIC ? Procedure: ??XR foot RT min 3V ? RIGHT FOOT ??- 3 views ? CLINICAL DATA: Right lateral foot pain for the past couple days. ??No specific ?? injury ? COMPARISON: None ? AP, lateral and oblique views were obtained. ??There is no evidence of fracture ?? or dislocation. ??There are no significant soft tissue abnormalities. ? XR/XR foot RT min 3V ?? IMPRESSION: ? NO ACUTE BONY FINDINGS. ? Impression dictated by: Tiana Sanchez M.D. ??07/26/2025 2:02 PM ? Dictation Location: [facility] ? Electronically authenticated by: [id number] ??Y ?? Date: 07/26/2025 ??14:02 ? Dictated By: ?Tiana Sanchez M.D. ? Signed By: ?07/26/25 1404 ? DD/ 1402 ? TD/TT: ? Blender Laborer: Procedure Note Radiology, Radiologist, MD - 07/26/2025 [place] [address] XRay Report Signed Patient: POLINA HAGAN JMR#: [id number] : 2000Acct:[id number] Age/Sex: 25 / MADM Date: Loc: ER Attending Dr: Ordering Physician: Marianela Ho Date of Service: 07/26/25 Procedure(s): XR foot RT min 3V Accession Number(s): [id number] cc: Marianela Ho; Physician,Non-Staff M.D. [facility] [place] [id number] Patient Name: POLINA HAGAN MRN: [facility]:[id number] date: 2000 Sex: M Assigned Patient Location: ED.MAIN Current Patient Location: ED.MAIN Accession/Order Number: [id number] Exam Date: 07/26/2025 13:35 Report Date: 07/26/2025 14:02 At the request of: MARIANELA HO Procedure: XR foot RT min 3V RIGHT FOOT - 3 views CLINICAL DATA: Right lateral foot pain for the past couple days. Nospecific injury COMPARISON: None AP, lateral and oblique views were obtained. There is no evidence offracture or dislocation. There are no significant soft tissue abnormalities. XR/XR foot RT min 3V IMPRESSION: NO ACUTE BONY FINDINGS. Impression dictated by: Tiana Sanchez M.D. 07/26/2025 2:02 PM Dictation Location: [place] [address] Electronically authenticated by: [id number] Y Date: 4:02 Dictated By: Tiana Sanchez M.D. Signed By:07/26/25 1404 DD/ 1402 TD/TT: Blender Laborer: Authorizing ProviderResult TypeResult StatusAmy Vic PACLINISYNC IMAGINGFinal Result documented in this encounter Visit Diagnoses Not on filedocumented in this encounter
--- OUTSIDE RECORDS SUMMARY | 2025-08-06 11:49 | XMS_ITS | Clinical Summary ---
Author Organization [facility] Address [address] [place] [address] Care Team Providers Care Boat Repairer Name Role Phone Coreen Maurer PATCH SETTER Unavailable [phone] Social History Tobacco UseTypesPacks/DayYears UsedDateSmoking Tobacco: Never AssessedArea Deprivation IndexAnswerDate RecordedNational Score (1-100), lower number is lower xwsw224601/24/2025State Score (1-10), lower number is lower mjgj340 Data from: https://www.neighborhoodatlas.[facility]/. Last address used for [address] [address]/24/2025Sex and Gender InformationValueDate RecordedSex Assigned at BirthNot on fileLegal ZqsBgbs7112/21/2024 11:28 AM EDT Gender IdentityNot on fileSexual OrientationNot on file Plan of Treatment Health MaintenanceDue DateLast DoneCommentsPeds To Adult Transition Initial Eycruiqcjc06/24/2012Peds To Adult Transition Annual Knoemtcwsk88/24/2014HPV Vaccine (1 - Male 3-dose series)2015nxiety Lpjysffxi77/24/2018Depression Svgqeibep92/24/2018HIV Dqnhyflfy67/24/2018Hepatitis C Xiodeeigz83/24/2018 DTaP,Tdap,Td Vaccine (1 - Tdap)2019Hepatitis B Vaccine (1 of 3 - 19+ 3- dose series)2019Covid-19 Vaccine (1 - 2024- season)2025Influenza Vaccine (#1)2025 Goals GoalPatient Goal TypeAssociated ProblemsRecent ProgressPatient-Stated?Author Blood Pressure < 140/90 Blood PressureJose Zuniga MD Insurance * Guarantor: More Smart TypeRelation to PatientDate of BirthPhone Billing AddressPersonal/MgtnmtRstn[address] [address] Care Teams Team MemberRelationshipSpecialtyStart DateEnd Date Coreen Maurer NP [address] [place] [address] ReferringNurse Practitioner02/12/25
--- OUTSIDE RECORDS SUMMARY | 2025-08-06 11:49 | XMS_ITS | Clinical Summary ---
Author Organization [facility] Address [address] [place] [address] Care Team Providers Care Survey Compiler Name Role Phone Unavailable Primary Care Provider Unavailabl e Encounters DateTypeDepartmentCare CvdrPeoznaqbizf41/12/2025Clinisync Result Encounter [facility] External Department Unsolicited Marianela Ho PA from Last 3 Months Social History Tobacco UseTypesPacks/DayYears UsedDateSmoking Tobacco: Never AssessedSex and Gender InformationValueDate RecordedSex Assigned at BirthNot on fileLegal Sex Male10/27/2022 6:49 PM EDTGender IdentityNot on fileSexual OrientationNot on file Last Filed Vital Signs Vital SignReadingTime TakenCommentsBlood Pressure--Pulse--Temperature-- Respiratory Rate--Oxygen Saturation--Inhaled Oxygen Concentration--Wnwhvj390 kg (271 lb)06/03/2020 12:00 PM PWTUoagme389.4 cm (6' 1 )06/03/2020 12:00 PM EDTBody Mass Index35.7506/03/2020 12:00 PM EDT Plan of Treatment Not on file Procedures Procedure NamePriorityDate/TimeAssociated DiagnosisCommentsXR FOOT RT MIN 3V 07/26/2025 2:02 PM EST from Last 3 Months Results * XR FOOT RT MIN 3V (07/26/2025 2:02 PM EST)Anatomical RegionLateralityModality OtherSpecimen (Source)Anatomical Location / LateralityCollection Method / VolumeCollection TimeReceived Time07/26/2025 2:02 PM EST Narrative 07/26/2025 2:[address] [facility] ?[address] ? [place] [address] ?XRay Report ? Signed ? Patient: BENTLEY,POLINA J ? MR#: [id number] ?? : 2000 ?Acct:[id number] ?? Age/Sex: 25 / M ?ADM Date: ?? Loc: ER ? Attending Dr: ? Ordering Physician: Marianela Ho ?? Date of Service: 07/26/25 ?? Procedure(s): XR foot RT min 3V ?? Accession Number(s): [id number] ? cc: Marianela Ho; Physician,Non-Staff M.D. ? [facility] ? [address] ? [place] [address] ? Patient Name: ?? POLINA HAGAN ? MRN: [facility]:[id number] ? date: 2000 ?Sex: M ?? Assigned Patient Location: ED.MAIN ?? Current Patient Location: ED.MAIN ?? Accession/Order Number: [id number] ?? Exam Date: 07/26/2025 ??13:35 ?Report Date: [...] M.D. ??07/26/2025 2:02 PM ? Dictation Location: [facility]--30 ? Electronically authenticated by: [id number] ??Y ?? Date: 07/26/2025 ??14:02 ? Dictated By: ?Tiana Sanchez M.D. ? Signed By: ?07/26/25 1404 ? DD/ 1402 ? TD/TT: ? Account Installer: Procedure Note Radiology, Radiologist, MD - 07/26/2025 [place] [address] XRay Report Signed Patient: POLINA HAGAN LYLE#: [id number] : 2000Acct:[id number] Age/Sex: 25 / MADM Date: Loc: ER Attending Dr: Ordering Physician: Marianela Ho Date of Service: 07/26/25 Procedure(s): XR foot RT min 3V Accession Number(s): [id number] cc: Marianela Ho; Physician,Non-Staff Lisa The [place] [address] Patient Name: POLINA HAGAN MRN: [id number] date: 2000 Sex: M Assigned Patient Location: ED.MAIN Current Patient Location: ED.MAIN Accession/Order Number: [id number] Exam Date: 07/26/2025 13:35 Report Date: 07/26/2025 [...] Sanchez M.D. 07/26/2025 2:02 PM Dictation Location: [place] [address] Electronically authenticated by: [id number] Y Date: 4:02 Dictated By: Tiana Sanchez M.D. Signed By:07/26/25 1404 DD/ 1402 TD/TT: Account Installer: Authorizing ProviderResult TypeResult StatusAmy Vic PACLINISYNC IMAGINGFinal Result from Last 3 Months Insurance
--- OUTSIDE RECORDS SUMMARY | 2025-08-06 11:49 | XMS_ITS | Patient Health Record ---
Author Organization [facility] Address [address] [place] [address], [facility] [place] [address] Care Team Providers Care Personnel And Payroll Technician Name Role Phone Coreen Segovia Primary Care Provider Unavailable Babak Chahal Unavailable [phone] Allergies No Known Allergies Reason For Referral No Information Medications Medication SIG (Take, Route, Frequency, Duration) [...] Encounters Encounter Location Date Provider Diagnosis [facility] [address] [address], [facility] [place] [address] 07/29/2025 Babak Chahal Rupture of plantar fascia [...] follow-up after the MRI Plan Of Treatment No Information Medical (General) History Medical History History ICD Code High Blood Pressure Surgical History Surgery Date(Month/Year) Heart Ablasion Urethra
--- NOTE | 2025-08-06 11:51 | MR_ITS ---
The [address] [address] Patient Name: POLINA HAGAN MRN: [id number] date: 2000 Sex: M Assigned Patient Location: MRI Current Patient Location: MRI Accession/Order Number: [id number] Exam Date: 08/06/2025 12:05 Report Date: 08/06/2025 21:43 At the request of: HOLLY HUERTA DPM Procedure: MR ankle RT wo con MRI Right Ankle without contrast TECHNIQUE: Multiplanar T1 and T2-weighted imaging of the obtained without contrast. COMPARISON: None HISTORY: Right Plantar foot pain. CLINICAL QUESTION: FINDINGS: SYNDESMOSIS: Adequate alignment of the distal tibia and fibula THE BONE MARROW: Normal fatty marrow without marrow infiltrative changes. No bone marrow edema. FRACTURE: No fracture identified. LATERAL COLLATERAL LIGAMENT COMPLEX: Intact anterior talofibular ligament. Intact calcaneofibular ligament. Intact posterior talofibular ligament. ANTEROLATERAL COMPARTMENT: No anterolateral impingement findings. PERONEAL TENDONS: Normal peroneal brevis tendon adjacent to the bone. No longitudinal split tear. Normal appearance of the peroneal longus tendon. Normal low signal tendon. Intact superior peroneal retinaculum with normal alignment of the peroneal brevis tendon. Normal appearance of the peroneal tendons behind the retromalleolar grove of the lateral malleolus. No surrounding fluid. No hypertrophy of the peroneal tubercle of the lateral calcaneus BIFURCATE LIGAMENT: Calcaneocuboid and calcaneonavicular ligaments of the bifurcate ligament are intact. The anterior process of the calcaneus is intact without bone marrow edematous changes. Intact the midtarsal joint. DELTOID LIGAMENT: The superficial and deep components of the medial collateral deltoid ligaments are intact. SPRING LIGAMENT: The spring ligament normally intersects the posterior tibial tendon in the talar head with coronal view no findings of tear or thickening. Specifically the superior medial segment is preserved. POSTERIOR TIBIAL TENDON: Normal orientation the posterior tibial tendon behind of the medial malleolus inserting into the navicular bone. Small amount of normal fluid is seen within the tendon sheath which terminates 1-2 cm proximal to the navicular insertion. No distal paratendinitis of the tendon identified. Unremarkable heterogeneous signal intensity of the distal tendon identified. SINUS TARSI: Normal fat-containing sinus tarsi identified without evidence of posterior tibial tendon dysfunction, talocalcaneal or fibulocalcaneal impingement identified. FLEXOR DIGITORUM LONGUS: Intact. FLEXOR HALLUCIS LONGUS: Intact . Fluid surrounding the flexor hallucis longus is likely a normal finding suggesting communication of the joint. ACHILLES TENDON: Normal homogeneous low signal. Normal thickness with slight concave anterior surface present. No peritendinous edema. No retrocalcaneal bursitis. No Sun deformity. Infiltration No tear of the calcaneal insertion or mid substance. Normal Jama's fat-pad. No Achilles tendon insertion enthesophyte. ANTERIOR TIBIAL TENDON:Anterior tibial tendon intact. No surrounding abnormal tendon sheath fluid. PLANTAR FASCIA: 3 fascicles of the plantar fascia are intact. Inferior calcaneal spurring. No reactive bone marrow edema. No adjacent soft tissue edema. MR/MR ankle RT wo con IMPRESSION: Inferior calcaneal spurring. Plantar fascia intact. Impression dictated by: Dickson Kaufman M.D. 08/06/2025 9:43 PM Dictation Location: [facility] Electronically authenticated by: [id number] Y Date: 08/06/2025 21:43
== END 2025-08-06 11:47 | disposition home or self-care (01) ==
LOC: MRI 11:46
PROVIDERS: PCP Nurse Practitioner Family; Visit Provider Podiatrist Foot & Ankle Surgery
DX: M72.2 Plantar fascial fibromatosis (principal); M77.31 Calcaneal spur, right foot
CPT/HCPCS: 73721